=== PATIENT | male | born 1955 | race Caucasian/White ===

== ENCOUNTER 2017-10-25 12:00 | Inpatient (IN) | payer MEDICAID ==
[~2017-10-25] VITALS: Ht 175.3 cm; Wt 92.1 kg
--- NOTE | 2017-10-25 12:03 | NUR ---
Patient to bed 10. RN evaluating patient at bedside.
[2017-10-25 12:08] VITALS: BP 126/95
[2017-10-25] MEDS ORDERED: LAM25 PO (12:14)
[2017-10-25] MEDS ORDERED: CLON1TAB PO (12:14)
[2017-10-25] MEDS ORDERED: ASPI81CT89 PO (12:14)
[2017-10-25] MEDS ORDERED: AMLO2.5T PO (12:14)
[2017-10-25] MEDS ORDERED: CARV12.5 PO (12:14)
[2017-10-25] MEDS ORDERED: CEL250 PO (12:14)
[2017-10-25] MEDS ORDERED: PRED20TA5 PO (12:14)
[2017-10-25] MEDS ORDERED: ATI.5 PO (12:14)
[2017-10-25] MEDS ORDERED: HYDR200T5 PO (12:14)
--- NOTE | 2017-10-25 12:27 | NUR ---
XR AT BEDSIDE. 20G IV PLACED TO RFA. CT NOTIFIED STS FOR HEAD CT.
--- NOTE | 2017-10-25 12:30 | NUR ---
Patient being evaluated by physician at bedside.
--- NOTE | 2017-10-25 12:35 | NUR ---
61/M BIB FOR ALOC AND WEAKNESS STARTED TODAY PER . HAS RECENTLY D/C FOR ENCEPHALOPATHY FROM [place] PRES. HX HTN, SEIZURE, KIDNEY TRANSPLANT R/T MED HX. PT STIMULATED TO VERBAL AND TACTILE STIMULI. PT AAOX2. GENERALIZED WEAKNESS NOTED. HAS BOUTS OF CONFUSION, BUT ABLE TO FOLLOW SIMPLE COMMANDS. NOTABLE AREAS OF VARIOUS BRUISING NOTED. PATCH TO RIGHT UPPER CHEST WELL. DR. YOUNG MADE AWARE.
[2017-10-25 12:44] LABS: HEMATOCRIT 27.7 % (36-52); HEMOGLOBIN 8.9 g/dL (12.0-18.0); MEAN CORPUSCULAR HEMOGLOBIN 30 pg (27-31); MEAN CORPUSCULAR HGB CONC 32 g/dL (33-37); MEAN CORPUSCULAR VOLUME 93 fL (80-94); PLATELET COUNT (AUTO) 145 K/uL (140-450); RED BLOOD CELL COUNT(AUTO) 2.97 MIL/uL (4.20-6.10); RED CELL DISTRIBUTION WIDTH 15.3 % (11.6-13.7); WHITE BLOOD COUNT (AUTO) 7.2 K/uL (4.8-10.8)
[2017-10-25 13:10] LABS: LYMPHOCYTES % (MANUAL) 6 % (20-46); MONOCYTES % (MANUAL) 3 % (5-12)
[2017-10-25 13:26] LABS: ALBUMIN 2.3 g/dL (3.4-5.0); ANION GAP 10.1 (8-16); CARBON DIOXIDE 35.6 mmol/L (21-32); CREATININE 1.5 mg/dL (0.7-1.3); POTASSIUM 3.7 mmol/L (3.5-5.1); TOTAL BILIRUBIN 0.5 mg/dL (0.0-1.0)
--- NOTE | 2017-10-25 13:30 | NUR ---
# 14 FR IN AND OUT catheter utilizing sterile technique. Immediate return of 100 ml CLR YELLOW urine noted. Bedside drainage bag placed below level of bladder. Urine sample collected and sent to lab. Pt tolerated procedure WELL.
--- NOTE | 2017-10-25 14:00 | NUR ---
PT TRANSPORTED TO CT VIA RNEY.
[2017-10-25 14:28] LABS: APPEARANCE,URINE CLEAR (CLEAR); BILIRUBIN,URINE NEGATIVE (NEGATIVE); BLOOD, URINE NEGATIVE (NEGATIVE); COLOR,URINE YELLOW (YELLOW); LEUKOCYTE ESTERASE ,URINE NEGATIVE (NEGATIVE); NITRITE, URINE NEGATIVE (NEGATIVE); PH,URINE 5.5 (5.0-9.0); UGLUCOSE NEGATIVE (NEGATIVE)
[2017-10-25 14:31] LABS: BARBITURATE, URINE NEG. ng/ml (NEG <=200); BENZODIAZEPINE, URINE NEG. ng/mL (NEG <=200); CANNABINOID, URINE POS. ng/mL (NEG <=50); COCAINE, URINE NEG. ng/mL (NEG <=300); OPIATE, URINE NEG. ng/mL (NEG <=2000); PHENCYCLIDINE SCREEN,URINE NEG. ng/mL (NEG <=25)
[2017-10-25] MEDS ORDERED: ACETAMINOPHEN 325 MG TAB PO PRN (15:25)
--- NOTE | 2017-10-25 15:30 | NUR ---
ADMITTING MD AT BEDSIDE.
--- NOTE | 2017-10-25 16:00 | NUR ---
DPatient will be admitted to care of DR. BERRIOS. Admited to [facility]. Will go to room 120-B. Belongings list completed. BEDSIDE REPORT TO DICK SANTIAGO.
[2017-10-25 16:10] VITALS: BP 118/79
--- NOTE | 2017-10-25 16:10 | NUR ---
PATIENT ADMITTED TO THE UNIT FROM ER. PATIENT IS DROWSY AND CONFUSED. PATIENT AOX2. NO S/S OF DISTRESS NOTED. PATIENT ON 2L O2. NO SOB AT THIS TIME. MULTIPLE BRUISES AND SKIN TEARS NOTED TO BUE AND BLE. IV LINES NOTED TO RIGHT FOREARM AND LEFT AC, SALINE LOCKED. PATIENT PLACED ON TELE MONITORING. BED LOWERED WITH CALL LIGHT WITHIN REACH. WILL CONTINUE TO MONITOR
[2017-10-25] MEDS ORDERED: NACL 0.9% 1,000 ML IV ONE (16:30)
[2017-10-25] MEDS: predniSONE 20 MG TAB PO SCH (17:40)
[2017-10-25] MEDS: clonazePAM 0.5 MG TAB PO SCH (17:43)
[2017-10-25] MEDS: LEVOFLOXACIN 750 MG/D5W PREMIX 150 ML IV SCH (18:25)
[2017-10-25 18:27] LABS: CHOL/HDL RATIO 3.7 (1-4.5); FREE T4 (FREE THYROXINE) 1.12 ng/dL (0.76-1.46); PHOSPHORUS 2.9 mg/dL (2.5-4.9); THYROID STIMULATING HORMONE 0.85 uIU/mL (0.34-3.74)
[2017-10-25 18:38] LABS: PROTHROMBIN TIME 10.4 secs (10.8-13.4)
--- NOTE | 2017-10-25 19:27 | NUR ---
PATIENT REPORT GIVEN AT BEDSIDE. PATIENT ENDORSED IN STABLE CONDITION
--- NOTE | 2017-10-25 19:28 | NUR ---
RECEIVED BEDSIDE REPORT FROM DAY SHIFT NURSE PAMELA RN, PT STABLE, NO DISTRESS NOTED, PT ON O2 2LPM VIA NC, NO SOB, IV TO LAC 18 G SL AND RFA20 G RUNNING BOLUS NS AT THIS MOMENT, INITIAL ASSESSMENT DONE, ALL SAFETY PRECAUTION MET, WILL CONTINUE TO MONITOR.
[2017-10-25 20:00] VITALS: BP 109/77
[2017-10-25] MEDS: DEXT 5% / NACL 0.45% 1,000 ML IV SCH (20:00)
[2017-10-25] MEDS ORDERED: CLINDAMYCIN 600 MG/4 ML VIAL ONE (21:04)
[2017-10-25] MEDS: CLINDAMYCIN 600 MG in DEXTROSE 5% 50 ML IV SCH (21:18)
[2017-10-25] MEDS: DOCUSATE SODIUM 100 MG GELCAP PO SCH (21:19)
[2017-10-25] MEDS: LORazepam 0.5 MG TAB PO SCH (21:19)
[2017-10-25] MEDS: lamoTRIgine 25 MG TAB PO SCH (21:19)
[2017-10-25] MEDS: CARVEDILOL 12.5 MG TAB PO SCH (21:19)
--- NOTE | 2017-10-25 21:19 | NUR ---
DUE MEDICATION GIVEN, PT TOLERATED WELL, NO DISTRESS NOTED, CALL LIGHT WITHIN REACH, WILL CONTINUE TO MONITOR.
[2017-10-26] VITALS: BP 99/68
[2017-10-26] MEDS: HYDROcodone/APAP 7.5/325 MG 1 TAB PO PRN ×3 (01:18→20:31)
--- NOTE | 2017-10-26 01:18 | NUR ---
PT C/O OF PAIN 03/21, DID NOT STATED WHERE THE PAIN IS, JUST STATED THERE IS PAIN, PAIN MEDICATION GIVEN, PT TOLERATED WELL, NO DISTRESS NOTED, CALL LIGHT WITHIN REACH.
[2017-10-26 04:00] VITALS: BP 112/79
[2017-10-26] MEDS ORDERED: CLINDAMYCIN 600 MG/4 ML VIAL ONE (05:09)
--- NOTE | 2017-10-26 05:10 | NUR ---
CHECKED ON PT, PT SLEEPING, NO DISTRESS NOTED, CALL LIGHT WITHIN REACH, WILL CONTINUE TO MONITOR.
[2017-10-26] MEDS: CLINDAMYCIN 600 MG in DEXTROSE 5% 50 ML IV SCH ×3 (05:16→21:52)
--- NOTE | 2017-10-26 07:19 | NUR ---
RECEIVED REPORT AT BEDSIDE FROM NIGHTSHIFT NURSE. PATIENT IS ASLEEP BUT AROUSABLE. PATIENT IS ORIENTED TO HIS NAME. REORIENTED PATIENT THAT HE IS AT [facility] AND TODAY'S DATE. PATIENT SHOWS NO SIGNS OF RESPIRATORY DISTRESS. PATIENT DOES NOT COMPLAIN OF ANY PAIN AT THIS TIME. PATIENT IS IN STABLE CONDITION. BED LOWERED AND ALARMED AND FALL PRECAUTION SIGNS ARE IN PLACE. WILL CONTINUE TO MONITOR PATIENT.
--- NOTE | 2017-10-26 07:19 | NUR ---
GAVE BEDSIDE REPORT TO DAY SHIFT NURSE PAMELA RN, ENDORSED PLAN OF CARE, PT STABLE, NO DISTRESS NOTED
[2017-10-26 07:35] LABS: HEMATOCRIT 22.6 % (36-52); HEMOGLOBIN 7.6 g/dL (12.0-18.0); MEAN CORPUSCULAR HEMOGLOBIN 32 pg (27-31); MEAN CORPUSCULAR HGB CONC 34 g/dL (33-37); MEAN CORPUSCULAR VOLUME 95 fL (80-94); PLATELET COUNT (AUTO) 111 K/uL (140-450); RED BLOOD CELL COUNT(AUTO) 2.39 MIL/uL (4.20-6.10); RED CELL DISTRIBUTION WIDTH 14.9 % (11.6-13.7)
[2017-10-26] MEDS: DEXT 5% / NACL 0.45% 1,000 ML IV SCH ×2 (07:43→21:59)
[2017-10-26 07:45] VITALS: BP 104/67
[2017-10-26 07:49] LABS: ANION GAP 9.1 (8-16); CARBON DIOXIDE 34.7 mmol/L (21-32); CREATININE 1.3 mg/dL (0.7-1.3); POTASSIUM 3.8 mmol/L (3.5-5.1)
[2017-10-26 08:11] LABS: MAGNESIUM 1.8 mg/dL (1.8-2.4); PHOSPHORUS 3.6 mg/dL (2.5-4.9)
[2017-10-26 08:49] LABS: LYMPHOCYTES % (MANUAL) 4 % (20-46); MONOCYTES % (MANUAL) 4 % (5-12)
[2017-10-26] MEDS: HYDROXYCHLOROQUINE 200 MG TAB PO SCH (09:00)
[2017-10-26] MEDS: amLODIPine 5 MG TAB PO SCH (09:00)
[2017-10-26] MEDS: clonazePAM 0.5 MG TAB PO SCH ×3 (09:00→17:55)
[2017-10-26] MEDS: ASPIRIN 81 MG TAB.CHEW PO SCH (09:00)
[2017-10-26] MEDS: DOCUSATE SODIUM 100 MG GELCAP PO SCH ×2 (09:00→20:30)
[2017-10-26] MEDS: LACTOBACILLUS RHAMNOSUS GG 1 EACH CAP PO SCH (09:00)
[2017-10-26] MEDS: MYCOPHENOLATE 250 MG CAP PO SCH (09:00)
[2017-10-26] MEDS: predniSONE 20 MG TAB PO SCH ×3 (09:00→16:18)
[2017-10-26] MEDS: CARVEDILOL 12.5 MG TAB PO SCH ×2 (09:00→20:32)
--- NOTE | 2017-10-26 09:05 | NUR ---
PRESENTED ALL MEDICATIONS TO PATIENT AND EXPLAINED EACH ONE TO PATIENT AND THEIR MECHANISM OF ACTIONS. PATIENT REFUSED TO TAKE ANY. PATIENT SEEMS IRRITABLE AND SAYS, "I WANT TO SLEEP". ASKED PATIENT THREE TIMES AND PATIENT REFUSED ALL MEDICATIONS.
--- NOTE | 2017-10-26 09:17 | NUR ---
PATIENT HAS BEEN SCREENED AND CATEGORIZED MODERATE NUTRITION RISK. PT WILL BE SEEN WITHIN 3-5 DAYS OF ADMISSION. 10/27/17-10/29/[address]
--- NOTE | 2017-10-26 11:04 | NUR ---
TRIED TO CONTACT MED[facility] RECORDS OF [facility] REGARDING THE RELEASE OF MEDICAL INFORMATION FOR PATIENT. MEDICAL RECORDS IS CLOSED TODAY FOR THIS HOSPITAL.
--- NOTE | 2017-10-26 11:51 | NUR ---
PATIENT WAS TAKEN BY CT FOR CT SCAN CHEST. PATIENT IS IN STABLE CONDITION.
[2017-10-26 12:00] VITALS: BP 121/79
--- NOTE | 2017-10-26 15:19 | NUR ---
CM NOTE INITIAL REVIEW FAXED TO [facility] (FAX# [phone], C: [phone]) AND [facility] (FAX# [phone], C: [phone] OPT 1, 1, 2, 2).
[2017-10-26 16:00] VITALS: BP 107/70
--- NOTE | 2017-10-26 17:19 | NUR ---
PATIENT SEEN BY SPEECH THERAPIST. SWALLOW EVAL DONE. SPEECH THERAPIST RECOMMENDS MECHANICAL SOFT DIET WITH THIN LIQUIDS.
[2017-10-26] MEDS: LEVOFLOXACIN 750 MG/D5W PREMIX 150 ML IV SCH (17:54)
--- NOTE | 2017-10-26 18:06 | NUR ---
* ST NOTE * Pt seen at bedside. Pt alert and cooperative, reporting no c/o pain at this time. Bedside dysphagia and oral mechanism exams completed. See evaluation report for further details. Pt tolerating 5/5 alternating PO trials of regular solid lisa crackers as well as 6/6 alternating PO trials of successive sips of thin liquid apple juice via a straw, all w/o s/s of aspiration or choking. Pt education completed regarding safe swallow compensatory strategies pt could utilize to aid w/swallow function, w/pt verbalizing understanding and agreement w/clinician's recommendations. Because pt presents with hx of CVA and seizures, it is recommended pt's PO diet consistency be modified to M/S textures w/thin liquids for all meals, abiding by aspiration precautions. No further ST follow up recommended at this time. Pt and caregiver/nsg education completed regarding results of evaluation; benefits of abiding by aspiration precautions & recommended PO diet consistency; and prognosis for improvement; with pt and caregiver/nsg verbalizing understanding and agreement w/clinician's recommendations. Recommend: - PO diet consistency of MECHANICAL SOFT TEXTURES W/THIN LIQUIDS for all meals - Maintain STRICT ASPIRATION PRECAUTIONS 2/2 to pt's hx of CVA and seizures - Pt is safe for PO medication administration crushed in m/s or puree textures - Sit pt up at 70-90 degree angle during PO intake, feed pt slowly utilizing small bites/sips & alternating btwn solids & liquids No further ST follow up recommended at this time. G8996 CL G8997 CI G8998 CI NOMS Level 2 Time In/Out 17:30 - 18:00
--- NOTE | 2017-10-26 19:15 | NUR ---
GAVE REPORT TO NIGHTSHIFT NURSE AT BEDSIDE. PATIENT IS IN STABLE CONDITION AT THIS TIME.
--- NOTE | 2017-10-26 19:16 | NUR ---
RECEIVED REPORT AT BEDSIDE FROM DAY SHIFT NURSE. PT A/OX1, ON 2L O2 VIA NASAL CANNULA. PT IS ON BEDREST. PT HAS IV TO LEFT AC 18G, SL, AND RIGHT FA 20G INFUSING D5 0.45%NS@50ML/HR. PT HAS MULTIPLE SKIN TEARS TO B/L UPPER EXTREMITIES, AND B/L LOWER EXTREMITIES. SAFETY PRECAUTIONS IN PLACE. UPDATED BOARD. VITAL SIGNS WITHIN NORMAL LIMITS. PT IN STABLE CONDITION, NO SIGNS OF DISTRESS NOTED. BED IN LOW POSITION, CALL LIGHT WITHIN REACH. WILL CONTINUE TO MONITOR.
[2017-10-26 20:00] VITALS: BP 99/70
[2017-10-26] MEDS: lamoTRIgine 25 MG TAB PO SCH (20:30)
--- NOTE | 2017-10-26 20:30 | NUR ---
PT C/O MODERATE GENERALIZED PAIN, ADMINISTERED NORCO AND OTHER SCHEDULED MEDICATIONS, PT TOLERATED WELL. HELD ATIVAN FOR NOW BECAUSE NORCO WAS GIVEN. WILL CHECK V/S AGAIN IN 1HR AND ADMINISTER ATIVAN AT THAT TIME. PT IN STABLE CONDITION, NO SIGNS OF DISTRESS NOTED. BED IN LOW POSITION, CALL LIGHT WITHIN REACH. WILL CONTINUE TO MONITOR.
[2017-10-26] MEDS: LORazepam 0.5 MG TAB PO SCH (21:52)
--- NOTE | 2017-10-26 21:55 | NUR ---
VITAL SIGNS STABLE, BP NOW 105/72, ADMINISTERED SCHEDULED ATIVAN, PT TOLERATED WELL. PT IN STABLE CONDITION, NO SIGNS OF DISTRESS NOTED. BED IN LOW POSITION, CALL LIGHT WITHIN REACH. WILL CONTINUE TO MONITOR.
--- NOTE | 2017-10-27 | NUR ---
VITAL SIGNS WITHIN NORMAL LIMITS. PT IN STABLE CONDITION, NO SIGNS OF DISTRESS NOTED. BED IN LOW POSITION, CALL LIGHT WITHIN REACH. WILL CONTINUE TO MONITOR.
[2017-10-27 00:30] VITALS: BP 108/72
[2017-10-27 04:00] VITALS: BP 122/80
--- NOTE | 2017-10-27 04:00 | NUR ---
VITAL SIGNS WITHIN NORMAL LIMITS. PT IN STABLE CONDITION, NO SIGNS OF DISTRESS NOTED. BED IN LOW POSITION, CALL LIGHT WITHIN REACH. WILL CONTINUE TO MONITOR.
[2017-10-27] MEDS: CLINDAMYCIN 600 MG in DEXTROSE 5% 50 ML IV SCH ×3 (05:25→21:21)
--- NOTE | 2017-10-27 07:14 | NUR ---
ENDORSED PATIENT TO CNC LATHE PROGRAMMER RN FOR CONTINUITY OF CARE. PATIENT IS IN STABLE CONDITION.
--- NOTE | 2017-10-27 07:20 | NUR ---
RECEIVED PATIENT REPORT AT BEDSIDE FROM NIGHTSHIFT NURSE. PATIENT IS AROUSABLE TO NAME. PATIENT IS ALERT AND ORIENTED TO NAME AND SOMETIMES PLACE. REORIENTED PATIENT TO LOCATION AND DATE. PATIENT SHOWS NO SIGNS OF RESPIRATORY DISTRESS. INSTRUCTED PATIENT TO CALL WITH CALL LIGHT WHEN HE NEEDS HELP. BED LOWERED AND FALL SIGNS POSTED. WILL CONTINUE TO MONITOR PATIENT.
[2017-10-27 07:34] LABS: HEMOGLOBIN 7.5 g/dL (12.0-18.0); MEAN CORPUSCULAR HEMOGLOBIN 31 pg (27-31); MEAN CORPUSCULAR HGB CONC 34 g/dL (33-37); MEAN CORPUSCULAR VOLUME 91 fL (80-94); PLATELET COUNT (AUTO) 109 K/uL (140-450); RED BLOOD CELL COUNT(AUTO) 2.42 MIL/uL (4.20-6.10); RED CELL DISTRIBUTION WIDTH 15.3 % (11.6-13.7); WHITE BLOOD COUNT (AUTO) 5.6 K/uL (4.8-10.8)
[2017-10-27] MEDS: DEXT 5% / NACL 0.45% 1,000 ML IV SCH (07:41)
[2017-10-27 07:59] VITALS: BP 124/78
[2017-10-27 08:57] LABS: LYMPHOCYTES % (MANUAL) 3 % (20-46); MONOCYTES % (MANUAL) 3 % (5-12)
[2017-10-27] MEDS: clonazePAM 0.5 MG TAB PO SCH ×3 (09:00→18:12)
[2017-10-27] MEDS: HYDROXYCHLOROQUINE 200 MG TAB PO SCH (09:00)
[2017-10-27] MEDS: CARVEDILOL 12.5 MG TAB PO SCH ×2 (09:00→22:48)
[2017-10-27] MEDS: DOCUSATE SODIUM 100 MG GELCAP PO SCH ×3 (09:00→22:47)
[2017-10-27] MEDS: amLODIPine 5 MG TAB PO SCH (09:00)
[2017-10-27] MEDS: MYCOPHENOLATE 250 MG CAP PO SCH (09:00)
[2017-10-27 09:05] LABS: ANION GAP 9.2 (8-16); CARBON DIOXIDE 32.4 mmol/L (21-32); CREATININE 1.3 mg/dL (0.7-1.3); POTASSIUM 3.6 mmol/L (3.5-5.1)
--- NOTE | 2017-10-27 09:42 | NUR ---
SPOKE WITH RADHA FROM [facility]. THE SNF WOULD BE THROUGH HIM. PER HIS REQUEST FAXED FACE SHEET, ORDER, PT NOTES AND MED SHEETS TO HIM AT [phone]. PHONE [phone]. Addendum: 10/27/17 at 1009 by Fariha Romo [facility] WILL LOOK FOR SNF.
[2017-10-27] MEDS: LACTOBACILLUS RHAMNOSUS GG 1 EACH CAP PO SCH (10:40)
[2017-10-27] MEDS: ASPIRIN 81 MG TAB.CHEW PO SCH (10:40)
[2017-10-27] MEDS: predniSONE 20 MG TAB PO SCH ×3 (10:40→18:10)
--- NOTE | 2017-10-27 10:45 | NUR ---
DR. MORALES NOTES SAYS TO HOLD OFF ON MEDICATION CELLCEPT AND PLAQUENIL UNTIL REASON WHY THE PATIENT IS TAKING THESE MEDICATIONS ARE IDENTIFIED.
[2017-10-27 10:47] VITALS: BP 89/69
[2017-10-27] MEDS: KETOROLAC 15 MG/ML VIAL IVP SCH ×2 (12:26→18:11)
--- NOTE | 2017-10-27 13:58 | NUR ---
SPOKE WITH RADHA FROM [facility]. HE SAID THEY FAXED INQUIRY TO THEIR CONTRACTED SNF'S FAXED [facility]CURRENT [facility]VIEW [facility] [phone] PHONE [phone] Addendum: 10/27/17 at 1411 by Fariha Romo CALLED [facility] AND SPOKE WITH SHAMIR. REVIEWS JUST GOES TO [facility], NOT TO [facility].
--- NOTE | 2017-10-27 15:22 | NUR ---
PATIENT IS ASLEEP. NO SIGNS OF RESPIRATORY DISTRESS NOTED. PATIENT IS IN STABLE CONDITION. WILL CONTINUE TO MONITOR PATIENT.
[2017-10-27 16:00] VITALS: BP 94/66
[2017-10-27] MEDS: FERROUS GLUCONATE 324 MG TAB PO SCH (18:10)
[2017-10-27] MEDS: LEVOFLOXACIN 750 MG/D5W PREMIX 150 ML IV SCH (18:11)
--- NOTE | 2017-10-27 19:15 | NUR ---
GAVE BEDSIDE REPORT AT TO NIGHTSHIFT NURSE . PATIENT SHOWS NO SIGNS OF RESPIRATORY DISTRESS. PATIENT IS IN STABLE CONDITION.
--- NOTE | 2017-10-27 19:16 | NUR ---
RECD. RESTING IN BED, AWAKE, A/OX4. RESPIRATION EVEN AND UNLABORED. ON 02 AT 2 LITERS VIA N/C, 02 SAT - 93%. BRUISES NOTED ON BILATERAL ARMS. IV OF D51/2 NS AT 50 ML/HR INFUSING, RIGHT FA G 20, IV SALINE LOCK AT THE RIGHT AC G20, PATENT AND INTACT. ON BILATERAL LEG SEQUENTIALS. SAFETY MEASURES ENFORCED. PLAN OF CARE DISCUSSED. VERBALIZED UNDERSTANDING. DENIES PAIN 0/10. WILL BE TRANSFERRED TO RM 116.
--- NOTE | 2017-10-27 19:35 | NUR ---
SHOUTING IN HISS ROOM, WHEN ASKED WHY STATED THAT HE IS CLAUSTROPHOBIC, WANTS TO SEE PEOPLE PASSING BY, CAN'T SLEEP IN RM 116. ASSURED WILL INFORM CHARGE NURSE.
[2017-10-27 20:00] VITALS: BP 113/80
--- NOTE | 2017-10-27 20:00 | NUR ---
Patient's Plan of Care was discussed and reviewed with GRADER MEAT: FERDINAND IRVING
--- NOTE | 2017-10-27 20:35 | NUR ---
TRANSFERRED BACK TO RM 107B. VERBALIZED CONTENTMENT.
--- NOTE | 2017-10-27 22:40 | NUR ---
STATED WANTS TO TAKE METHADONE AGAIN, CLAIMED HE STOPPED TAKING IT 2-3 WEEKS BEFORE ADMISSION. WANTS TO TALK TO MD ABOUT IT. INFORMED DR. RENEE, WILL SPEAK WITH PATIENT REGARDING THIS MEDICATION.
[2017-10-27] MEDS: LORazepam 0.5 MG TAB PO SCH (22:47)
[2017-10-27] MEDS: lamoTRIgine 25 MG TAB PO SCH (22:48)
--- NOTE | 2017-10-27 23:10 | NUR ---
DR. RENEE SPOKE WITH PATIENT.
[2017-10-28] VITALS (7 sets, daily range): BP systolic 102–125; BP diastolic 70–78
[2017-10-28] MEDS: KETOROLAC 15 MG/ML VIAL IVP SCH ×5 (00:34→23:40)
--- NOTE | 2017-10-28 01:00 | NUR ---
SLEEPING COMFORTABLY IN BED.
[2017-10-28] MEDS: DEXT 5% / NACL 0.45% 1,000 ML IV SCH ×2 (03:41→23:41)
[2017-10-28] MEDS: CLINDAMYCIN 600 MG in DEXTROSE 5% 50 ML IV SCH ×3 (05:24→20:15)
--- NOTE | 2017-10-28 06:00 | NUR ---
ALREADY AWAKE IN BED, BUT STILL COVERED HIS FACE WITH BLANKET. NO DISTRESS NOTED.
[2017-10-28 06:28] LABS: FOLIC ACID 13.9 ng/mL (>3.0)
[2017-10-28 07:05] LABS: BASOPHILS % (AUTO) 0.1 % (0.0-2.0); EOSINOPHILS # (AUTO) 0.1 K/uL (0-0.4); HEMATOCRIT 22.5 % (36-52); HEMOGLOBIN 7.4 g/dL (12.0-18.0); LYMPHOCYTES # (AUTO) 0.4 K/uL (2.0-11.5); LYMPHOCYTES % (AUTO) 7.7 % (20.5-51.1); MEAN CORPUSCULAR HEMOGLOBIN 31 pg (27-31); MEAN CORPUSCULAR HGB CONC 33 g/dL (33-37); MEAN CORPUSCULAR VOLUME 94 fL (80-94); MONOCYTES # (AUTO) 0.3 K/uL (0.8-1.0); NEUTROPHILS # (AUTO) 4.3 K/uL (1.8-7.7); NEUTROPHILS % (AUTO) 86.2 % (42.2-75.2); PLATELET COUNT (AUTO) 118 K/uL (140-450); RED BLOOD CELL COUNT(AUTO) 2.39 MIL/uL (4.20-6.10); RED CELL DISTRIBUTION WIDTH 14.8 % (11.6-13.7); WHITE BLOOD COUNT (AUTO) 5.1 K/uL (4.8-10.8)
--- NOTE | 2017-10-28 07:20 | NUR ---
CONDITION REMAIN STABLE. ENDORSED TO DICK SHAW FOR CONTINUITY OF CARE.
--- NOTE | 2017-10-28 07:21 | NUR ---
RECEIVED REPORT FROM MECHANICAL SERVICE SPECIALIST NURSE. PATIENT LYING IN BED SLEEPING, AROUSABLE BY VOICE. NO DISTRESS NOTED. DENIES ANY PAIN AT THIS TIME. AAOX2, CALM, COOPERATIVE, SKIN COLOR APPROPRIATE TO ETHNICITY, WARM TO TOUCH. 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 NO S/S OF INFECTION NOTED ON SKIN LESIONS. IV SITE INTACT, PATENT, AND INFUSING IVF PER ORDERS. LUNGS CTA ON ALL LOBES. ABDOMEN SOFT, NON-DISTENDED. REVIEWED PLAN OF CARE WITH PATIENT. PATIENT VERBALIZED UNDERSTANDING. SAFETY MEASURES IN PLACE, CALL LIGHT WITHIN REACH, FALL PREVENTIONS IN PLACE. WILL CONTINUE TO MONITOR.
[2017-10-28 07:45] LABS: ANION GAP 10.5 (8-16); CREATININE 1.3 mg/dL (0.7-1.3); POTASSIUM 3.5 mmol/L (3.5-5.1)
[2017-10-28] MEDS: DOCUSATE SODIUM 100 MG GELCAP PO SCH ×2 (08:53→21:21)
[2017-10-28] MEDS: predniSONE 20 MG TAB PO SCH ×3 (08:53→17:01)
[2017-10-28] MEDS: clonazePAM 0.5 MG TAB PO SCH ×3 (08:54→17:03)
[2017-10-28] MEDS: CARVEDILOL 12.5 MG TAB PO SCH ×2 (08:55→21:22)
[2017-10-28] MEDS: FERROUS GLUCONATE 324 MG TAB PO SCH ×2 (08:55→17:07)
[2017-10-28] MEDS: HYDROXYCHLOROQUINE 200 MG TAB PO SCH (08:55)
[2017-10-28] MEDS: ASPIRIN 81 MG TAB.CHEW PO SCH (08:55)
[2017-10-28] MEDS: amLODIPine 5 MG TAB PO SCH (08:55)
[2017-10-28] MEDS: LACTOBACILLUS RHAMNOSUS GG 1 EACH CAP PO SCH (08:55)
--- NOTE | 2017-10-28 09:00 | NUR ---
PATIENT LYING IN BED SLEEPING, AROUSABLE BY VOICE. NO DISTRESS NOTED. DENIES ANY PAIN AT THIS TIME. SCHEDULED MEDICATIONS DUE GIVEN. PATIENT TOLERATED WELL. SAFETY MEASURES IN PLACE, CALL LIGHT WITHIN REACH. WILL CONTINUE TO MONITOR.
--- NOTE | 2017-10-28 14:36 | NUR ---
CALLED [facility] AND SPOKE WITH DORENE. SHE SAID [facility] DOES NOT NEED REVIEW. FAXED CONCURRENT REVIEW TO [facility] [phone] PHONE RADHA [phone]. I CALLED [facility] BECAUSE HE SAID HE WOULD BE GETTTING A SNF FOR THIS PATIENT. NO CALL BACK YET.
--- NOTE | 2017-10-28 16:05 | NUR ---
PHYSICAL THERAPY CO-SIGN The Physical Therapy Progress Notes documented by Altitude Chamber Technician have been reviewed. Reviewed/Co-Signed by: Nena Kingston PT Documentation Done by: GALE CARDOZA PTA PT CONTINUES TO PRESENT WITH WEAKNESS TO JAYME LE WITH SIT TO STAND ACTIVITY BUT IMPROVING SEATED TRUNKAL CONTROL. Addendum: 10/29/17 at 0847 by Nena Kingston PT Amended: Links added.
--- NOTE | 2017-10-28 17:13 | NUR ---
DR. VELASQUEZ AT BEDSIDE REVIEWING PLAN OF CARE WITH PATIENT. ASSISTED PATIENT WITH URINAL. PATIENT LYING IN BED. NO DISTRESS NOTED. RESPIRATIONS EVEN, UNLABORED, ON ROOM AIR WITH O2 SAT AT 96%. SCHEDULED MEDICATIONS DUE GIVEN. SAFETY MEASURES IN PLACE, CALL LIGHT WITHIN REACH, FALL PREVENTIONS IN PLACE. WILL CONTINUE TO MONITOR.
--- NOTE | 2017-10-28 17:59 | NUR ---
PATIENT LYING DOWN IN BED. ASKED FOR ROM EXERCISES FOR B/L LE. PERFORMED ROM EXERCISES ON B/L LE PER PATIENT REQUESTS. NO DISTRESS NOTED. IV SITE INTACT, PATENT AND INFUSING IVF PER ORDERS. CONDITION UNCHANGED. SAFETY MEASURES IN PLACE, CALL LIGHT WITHIN REACH. WILL CONTINUE TO MONITOR.
[2017-10-28] MEDS: LEVOFLOXACIN 750 MG/D5W PREMIX 150 ML IV SCH (18:19)
--- NOTE | 2017-10-28 18:26 | NUR ---
PATIENT LYING DOWN SLEEPING, AROUSABLE BY VOICE. NO DISTRESS NOTED. DENIES ANY PAIN. RESPIRATIONS EVEN, UNLABORED, ON ROOM AIR. SCHEDULED MEDICATIONS DUE GIVEN. SAFETY MEASURES IN PLACE, CALL LIGHT WITHIN REACH. WILL CONTINUE TO MONITOR.
--- NOTE | 2017-10-28 19:10 | NUR ---
GAVE REPORT TO HAIR ASSISTANT NURSE FOR CONTINUITY OF CARE. PATIENT IN STABLE CONDITION.
--- NOTE | 2017-10-28 19:11 | NUR ---
RECD. RESTING IN BED, AWAKE, A/OX4. RESPIRATION EVEN AND UNLABORED. IV OF D5 1/2 NS AT 50 ML/HR INFUSING, RIGHT FOREARM G20, SALINE LOCK AT THE LEFT AC G18, PATENT AND INTACT. STILL WITH BRUISES AND SKIN TEARS IN THE BODY. ON BILATERAL LEG SEQUENTIALS. SAFETY MEASURES ENFORCED, CALL LIGHT GIVEN AND INSTRUCTED TO CALL NURSE WHEN NEEDING HELP. WITH DEPRESSION, VERBALIZED FRUSTRATION BECAUSE HE IS UNABLE TO AMBULATE. WANTS TO SPEAK WITH MD. WILL ENDORSE TO AM NURSE FOR FOLLOW UP. PLAN OF CARE DISCUSSED. VERBALIZED UNDERSTANDING. DENIES PAIN 0/10.
--- NOTE | 2017-10-28 19:11 | NUR ---
Patient's Plan of Care was discussed and reviewed with TERADATA SOLUTION ARCHITECT: FERDINAND IRVING
[2017-10-28] MEDS: MORPHINE SULFATE 2 MG/ML SYR IVP PRN (21:21)
[2017-10-28] MEDS: lamoTRIgine 25 MG TAB PO SCH (21:21)
[2017-10-28] MEDS: LORazepam 0.5 MG TAB PO SCH (21:22)
[2017-10-28] MEDS ORDERED: SODIUM PHOSPHATE 118 ML ENEM RC SCH (21:30)
--- NOTE | 2017-10-28 21:30 | NUR ---
UNABLE TO HAVE BM FOR THREE DAYS NOW, FLEET ENEMA GIVEN.
--- NOTE | 2017-10-28 22:00 | NUR ---
DR. MAURICIO CAME AND CHECKED PATIENT, WILL CHECK FOR NEW ORDERS.
--- NOTE | 2017-10-28 22:30 | NUR ---
ABLE TO HAVE SMALL AMOUNT OF FORMED BM. CLEANSED AND MADE COMFORTABLE IN BED.
--- NOTE | 2017-10-28 22:30 | NUR ---
DR.. MAURICIO ORDERED SPUTUM CULTURE. SPECIMEN BOTTLE GIVEN TO PATIENT AND INSTRUCTED TO SPIT OUT PHLEGM AND GIVE TO NURSE TO BE SENT TO THE LABORATORY. VERBALIZED UNDERSTANDING.
[2017-10-29] VITALS: BP 118/72
--- NOTE | 2017-10-29 02:00 | NUR ---
STILL AWAKE IN BED, REQUESTED TO SNACK.
[2017-10-29] MEDS: MORPHINE SULFATE 2 MG/ML SYR IVP PRN ×2 (03:38→23:18)
[2017-10-29 04:00] VITALS: BP 122/65
--- NOTE | 2017-10-29 05:00 | NUR ---
OCCASIONALLY WAKES UP TO FOLLOW UP HIS PAIN MEDICATION.
[2017-10-29] MEDS: KETOROLAC 15 MG/ML VIAL IVP SCH ×3 (05:06→17:33)
[2017-10-29] MEDS: CLINDAMYCIN 600 MG in DEXTROSE 5% 50 ML IV SCH ×3 (05:06→20:48)
--- NOTE | 2017-10-29 06:22 | NUR ---
CONDITION REMAIN STABLE. WILL ENDORSE TO AM NURSE FOR CONTINUITY OF CARE.
[2017-10-29 07:12] LABS: BASOPHILS % (AUTO) 0.3 % (0.0-2.0); EOSINOPHILS # (AUTO) 0.1 K/uL (0-0.4); HEMATOCRIT 26.6 % (36-52); HEMOGLOBIN 8.8 g/dL (12.0-18.0); LYMPHOCYTES # (AUTO) 0.5 K/uL (2.0-11.5); LYMPHOCYTES % (AUTO) 6.1 % (20.5-51.1); MEAN CORPUSCULAR HEMOGLOBIN 31 pg (27-31); MEAN CORPUSCULAR HGB CONC 33 g/dL (33-37); MEAN CORPUSCULAR VOLUME 92 fL (80-94); MONOCYTES # (AUTO) 0.4 K/uL (0.8-1.0); MONOCYTES % (AUTO) 5.1 % (1.7-9.3); NEUTROPHILS # (AUTO) 7.1 K/uL (1.8-7.7); NEUTROPHILS % (AUTO) 87.5 % (42.2-75.2); PLATELET COUNT (AUTO) 155 K/uL (140-450); RED BLOOD CELL COUNT(AUTO) 2.88 MIL/uL (4.20-6.10); RED CELL DISTRIBUTION WIDTH 14.9 % (11.6-13.7); WHITE BLOOD COUNT (AUTO) 8.1 K/uL (4.8-10.8)
--- NOTE | 2017-10-29 07:15 | NUR ---
ENDORSED TO DICK SHAW FOR CONTINUITY OF CARE.
--- NOTE | 2017-10-29 07:16 | NUR ---
RECEIVED REPORT FROM RIDES ATTENDANT NURSE. PATIENT LYING IN BED SLEEPING, AROUSABLE BY VOICE. NO DISTRESS NOTED. RESPIRATIONS EVEN, UNLABORED, ON ROOM AIR. DENIES ANY PAIN AT THIS TIME. AAOX2, CALM, COOPERATIVE, SKIN COLOR APPROPRIATE TO ETHNICITY, WARM TO TOUCH. HAS MULTIPLE SKIN BRUISES AND LESIONS THROUGHOUT B/L UPPER EXTREMITY AND CHEST AREA THAT ARE SACHIN. NO S/S OF INFECTION NOTED ON SKIN LESIONS. IV SITE INTACT, PATENT, AND INFUSING IVF PER ORDERS. LUNGS CTA ON ALL LOBES. ABDOMEN SOFT, NON-DISTENDED. REVIEWED PLAN OF CARE WITH PATIENT. PATIENT VERBALIZED UNDERSTANDING. SAFETY MEASURES IN PLACE, CALL LIGHT WITHIN REACH, FALL PREVENTIONS IN PLACE. WILL CONTINUE TO MONITOR.
[2017-10-29 07:43] LABS: ANION GAP 13.3 (8-16); CREATININE 1.4 mg/dL (0.7-1.3); POTASSIUM 3.3 mmol/L (3.5-5.1)
[2017-10-29 08:00] VITALS: BP 119/80
--- NOTE | 2017-10-29 08:30 | NUR ---
DR. TAYLOR AT BEDSIDE REVIEWING PLAN OF CARE WITH PATIENT. WILL CONTINUE TO MONITOR.
[2017-10-29] MEDS: LACTOBACILLUS RHAMNOSUS GG 1 EACH CAP PO SCH (08:57)
[2017-10-29] MEDS: FERROUS GLUCONATE 324 MG TAB PO SCH ×2 (09:00→17:33)
[2017-10-29] MEDS: HYDROXYCHLOROQUINE 200 MG TAB PO SCH (09:00)
[2017-10-29] MEDS: predniSONE 20 MG TAB PO SCH ×3 (09:00→17:33)
[2017-10-29] MEDS: DOCUSATE SODIUM 100 MG GELCAP PO SCH ×2 (09:00→20:49)
[2017-10-29] MEDS: amLODIPine 5 MG TAB PO SCH (09:00)
[2017-10-29] MEDS: ASPIRIN 81 MG TAB.CHEW PO SCH (09:00)
[2017-10-29] MEDS: CARVEDILOL 12.5 MG TAB PO SCH ×2 (09:00→20:50)
[2017-10-29] MEDS: clonazePAM 0.5 MG TAB PO SCH ×3 (09:01→17:35)
--- NOTE | 2017-10-29 09:13 | NUR ---
PATIENT LYING IN BED. NO DISTRESS NOTED. ASSISTED PATIENT IN REPOSITIONING. RESPIRATIONS EVEN, UNLABORED, ON ROOM AIR. SCHEDULED MEDICATIONS DUE GIVEN. SAFETY MEASURES IN PLACE, CALL LIGHT WITHIN REACH. WILL CONTINUE TO MONITOR.
[2017-10-29] MEDS ORDERED: POTASSIUM CHLORIDE 10 MEQ TABER PO SCH (10:00)
--- NOTE | 2017-10-29 10:23 | NUR ---
PATIENT LYING IN BED FEELING ANXIOUS AND AGITATED ABOUT BEING NPO. SAYS HE WANTS TO CANCEL POSSIBLE BRONCOSCOPY IF THEY ARE NOT ABLE TO COMPLETE IT BY 1400. WILL NOTIFY MD. ASSISTED PATIENT IN REPOSITIONING IN BED. SAFETY MEASURES IN PLACE, CALL LIGHT WITHIN REACH.
--- NOTE | 2017-10-29 10:52 | NUR ---
SPUTUM CULTURE COLLECTED BY COLIN/DICK SENT LAB AT 0730
[2017-10-29 12:00] VITALS: BP 112/92
--- NOTE | 2017-10-29 12:15 | NUR ---
PHYSICAL THERAPY CO-SIGN The Physical Therapy Progress Notes documented by Sales Representative Printing Supplies have been reviewed. Reviewed/Co-Signed by: Grisel Hampton PT Documentation Done by: Stew Luther PTA I concur with the documentation of this LEMON GROWER. Plan: continue as per plan of care if he remains in this hospital. Addendum: 10/30/17 at 1412 by Grisel Hampton PT Amended: Links added.
--- NOTE | 2017-10-29 12:46 | NUR ---
PATIENT LYING IN BED FEELING ANXIOUS. NO DISTRESS NOTED. DENIES ANY PAIN. SCHEDULED MEDICATIONS DUE GIVEN. ASSISTED PATIENT WITH URINAL AND REPOSITIONING IN BED. SAFETY MEASURES IN PLACE, CALL LIGHT WITHIN REACH. WILL CONTINUE TO MONITOR.
--- NOTE | 2017-10-29 13:30 | NUR ---
[facility] NOTE JOSE Hensley/ [facility] FOR [facility] (C: [phone]) RE. SNF PLACEMENT. Addendum: 10/29/17 at 1550 by Carl Ward RN 2ND CALL OUT TO MARK. [facility]ARC[facility].
--- NOTE | 2017-10-29 15:00 | NUR ---
PATIENT LYING IN BED. DIET CHANGED FROM NPO TO MECHANICAL SOFT. GAVE PATIENT PUDDING AND COFFEE. PATIENT FEELS BETTER AFTER EATING A SNACK. NO DISTRESS NOTED. DENIES ANY PAIN. ASSISTED PATIENT WITH URINAL. SAFETY MEASURES IN PLACE, CALL LIGHT WITHIN REACH. WILL CONTINUE TO MONITOR.
--- NOTE | 2017-10-29 15:17 | NUR ---
CM NOTE CONCURRENT REVIEW FAXED TO [facility] / FAX# [phone], ATTN: RADHA #[phone]
[2017-10-29 16:00] VITALS: BP 100/70
--- NOTE | 2017-10-29 16:30 | NUR ---
ASSISTED LIQUEFACTION PLANT OPERATOR IN REPOSITIONING PATIENT. PATIENT HAD NO BM TODAY. SAFETY MEASURES IN PLACE, CALL LIGHT WITHIN REACH. WILL CONTINUE TO MONITOR.
[2017-10-29] MEDS: LEVOFLOXACIN 750 MG/D5W PREMIX 150 ML IV SCH (17:34)
--- NOTE | 2017-10-29 17:48 | NUR ---
PATIENT SITTING IN BED TALKING WITH FAMILY MEMBER AT BEDSIDE. NO DISTRESS NOTED. DENIES ANY PAIN. GAVE PATIENT A JELLO PER REQUEST. SCHEDULED MEDICATIONS DUE GIVEN. WILL CONTINUE TO MONITOR.
--- NOTE | 2017-10-29 18:51 | NUR ---
PATIENT REQUESTING FOR BED HOLGUIN. PATIENT HAD A BIG BOWEL MOVEMENT. CLEANED PATIENT UP AND REPOSITIONED PATIENT. SAFETY MEASURES IN PLACE, CALL LIGHT WITHIN REACH. WILL CONTINUE TO MONITOR.
--- NOTE | 2017-10-29 19:31 | NUR ---
GAVE REPORT TO TECHNICIAN NURSE FOR CONTINUITY OF CARE. PATIENT IN STABLE CONDITION.
--- NOTE | 2017-10-29 19:32 | NUR ---
RECEIVED REPORT AT BEDSIDE FROM DAY SHIFT NURSE. PT A/OX1, ON ROOM AIR. PT IS ON BEDREST. PT HAS IV TO LEFT AC 18G, SL, AND RIGHT FA 20G INFUSING D5 0.45%NS@50ML/HR. PT HAS MULTIPLE SKIN TEARS AND SCABS TO B/L UPPER EXTREMITIES, AND B/L LOWER EXTREMITIES. SAFETY PRECAUTIONS IN PLACE. UPDATED BOARD. VITAL SIGNS WITHIN NORMAL LIMITS. PT IN STABLE CONDITION, NO SIGNS OF DISTRESS NOTED. BED IN LOW POSITION, CALL LIGHT WITHIN REACH. WILL CONTINUE TO MONITOR.
[2017-10-29] MEDS: DEXT 5% / NACL 0.45% 1,000 ML IV SCH (19:41)
[2017-10-29 20:00] VITALS: BP 133/90
[2017-10-29] MEDS: LORazepam 0.5 MG TAB PO SCH (20:49)
--- NOTE | 2017-10-29 20:50 | NUR ---
ADMINISTERED SCHEDULED MEDICATIONS, PT TOLERATED WELL. PT IN STABLE CONDITION, NO SIGNS OF DISTRESS NOTED. BED IN LOW POSITION, CALL LIGHT WITHIN REACH. WILL CONTINUE TO MONITOR.
[2017-10-29] MEDS: lamoTRIgine 25 MG TAB PO SCH (20:51)
--- NOTE | 2017-10-29 23:19 | NUR ---
PT C/O 10/ GENERALIZED PAIN, MEDICATED WITH 1MG OF MORPHINE PER ORDER. PT TOLERATED WELL.
[2017-10-30] VITALS: BP 156/86
[2017-10-30] MEDS: KETOROLAC 15 MG/ML VIAL IVP SCH ×5 (00:17→23:54)
--- NOTE | 2017-10-30 00:20 | NUR ---
ADMINISTERED SCHEDULED TORADOL. PT TOLERATED WELL. VITAL SIGNS WITHIN NORMAL LIMITS. PT IN STABLE CONDITION, NO SIGNS OF DISTRESS NOTED. BED IN LOW POSITION, CALL LIGHT WITHIN REACH. WILL CONTINUE TO MONITOR.
[2017-10-30] MEDS: HYDROcodone/APAP 10/325 MG 1 TAB TAB PO PRN (03:10)
--- NOTE | 2017-10-30 03:10 | NUR ---
SPOKE TO DR RENEE TO EXPLAIN THAT MORPHINE AND TORADOL WERE NOT VERY EFFECTIVE FOR PT AND PT STILL IN PAIN. DR RENEE SAID TO GIVE NORCO ORDERED. ADMINISTERED NORCO FOR MODERATE PAIN (GENERALIZED), PT TOLERATED WELL.
[2017-10-30 04:00] VITALS: BP 127/84
--- NOTE | 2017-10-30 04:00 | NUR ---
VITAL SIGNS WITHIN NORMAL LIMITS. PT IN STABLE CONDITION, NO SIGNS OF DISTRESS NOTED. BED IN LOW POSITION, CALL LIGHT WITHIN REACH. WILL CONTINUE TO MONITOR.
[2017-10-30] MEDS: CLINDAMYCIN 600 MG in DEXTROSE 5% 50 ML IV SCH ×3 (04:46→20:58)
--- NOTE | 2017-10-30 06:00 | NUR ---
ADMINISTERED SCHEDULED TORADOL, PT TOLERATED WELL. PT IN STABLE CONDITION, NO SIGNS OF DISTRESS NOTED. BED IN LOW POSITION, CALL LIGHT WITHIN REACH. WILL CONTINUE TO MONITOR.
[2017-10-30 07:21] LABS: BASOPHILS % (AUTO) 0.1 % (0.0-2.0); EOSINOPHILS % (AUTO) 0.2 % (0.0-4.0); HEMATOCRIT 27.3 % (36-52); HEMOGLOBIN 9.1 g/dL (12.0-18.0); LYMPHOCYTES # (AUTO) 0.7 K/uL (2.0-11.5); LYMPHOCYTES % (AUTO) 5.4 % (20.5-51.1); MEAN CORPUSCULAR HEMOGLOBIN 31 pg (27-31); MEAN CORPUSCULAR HGB CONC 34 g/dL (33-37); MEAN CORPUSCULAR VOLUME 93 fL (80-94); MONOCYTES # (AUTO) 0.6 K/uL (0.8-1.0); MONOCYTES % (AUTO) 4.8 % (1.7-9.3); NEUTROPHILS # (AUTO) 11.4 K/uL (1.8-7.7); NEUTROPHILS % (AUTO) 89.5 % (42.2-75.2); PLATELET COUNT (AUTO) 183 K/uL (140-450); RED BLOOD CELL COUNT(AUTO) 2.94 MIL/uL (4.20-6.10); RED CELL DISTRIBUTION WIDTH 15.1 % (11.6-13.7)
--- NOTE | 2017-10-30 07:22 | NUR ---
ENDORSED PT TO DAY SHIFT RN FOR CONTINUITY OF CARE, PT IN STABLE CONDITION.
--- NOTE | 2017-10-30 07:25 | NUR ---
RECEIVED REPORT FROM MALT SPECIFICATIONS CONTROL ASSISTANT NURSE, PT SLEEPING IN BED BUT EASILY AWAKEN, PT IS AAOX2-3, ON BEDREST, IV IS ON THE RT FA, PATENT, INTACT, FLUSHING WELL, IV ON LEFT AC, PATENT, INTACT, FLUSHING WELL, SALINE LOCKED, NO S/S OF RESPIRATORY DISTRESS OR DISCOMFORT NOTED, DISCUSSED PLAN OF CARE WITH PT, PT VERBALIZED UNDERSTANDING, CALL LIGHT WITHIN REACH, WILL CONTINUE TO MONITOR.
[2017-10-30 07:46] LABS: ANION GAP 11.8 (8-16); CARBON DIOXIDE 29.9 mmol/L (21-32); CREATININE 1.4 mg/dL (0.7-1.3); POTASSIUM 3.7 mmol/L (3.5-5.1)
[2017-10-30 08:00] VITALS: BP 114/92
[2017-10-30 08:23] LABS: WHITE BLOOD COUNT (AUTO) 12.7 K/uL (4.8-10.8)
[2017-10-30] MEDS: amLODIPine 5 MG TAB PO SCH (09:00)
[2017-10-30] MEDS: FERROUS GLUCONATE 324 MG TAB PO SCH ×2 (09:04→16:22)
[2017-10-30] MEDS: CARVEDILOL 12.5 MG TAB PO SCH ×2 (09:05→20:58)
[2017-10-30] MEDS: LACTOBACILLUS RHAMNOSUS GG 1 EACH CAP PO SCH (09:05)
[2017-10-30] MEDS: predniSONE 20 MG TAB PO SCH ×3 (09:08→16:23)
[2017-10-30] MEDS: HYDROXYCHLOROQUINE 200 MG TAB PO SCH (09:08)
[2017-10-30] MEDS: DOCUSATE SODIUM 100 MG GELCAP PO SCH ×2 (09:08→20:57)
--- NOTE | 2017-10-30 09:08 | NUR ---
DUE MEDICATIONS GIVEN, NORVASC WAS HELD DUE TO DECREASED BLOOD PRESSURE, PATIENT'S IS AT BEDSIDE.
[2017-10-30] MEDS: MORPHINE SULFATE 2 MG/ML SYR IVP PRN (09:09)
[2017-10-30] MEDS: ONDANSETRON 4 MG/2 ML VIAL IVP PRN ×2 (09:09→16:22)
[2017-10-30] MEDS: ASPIRIN 81 MG TAB.CHEW PO SCH (09:16)
[2017-10-30] MEDS: clonazePAM 0.5 MG TAB PO SCH ×3 (09:21→16:40)
--- NOTE | 2017-10-30 10:36 | NUR ---
PT NOTES CLEARED BY RN FOR P.T. TX. ATTEMPTED TO SEE PATIENT FOR P.T. TX, BUT PATIENT DECLINING TO PARTICIPATE. PATIENT GIVEN VERBAL ENCOURAGEMENT TO PARTICIPATE IN THERAPY, BUT PATIENT STATED, "I CAN'T EVEN WALK. I DON'T WANT TO." PATIENT EDUCATED ON THERAPY BENEFITS, BUT CONTINUES TO DECLINE. DICK "BAUTISTA" AWARE. PRIMARY THERAPIST AWARE. PVE Addendum: 10/30/17 at 1413 by Grisel Hampton PT PHYSICAL THERAPY CO-SIGN The Physical Therapy Progress Notes documented by Mechanical Product Design Engineer have been reviewed. Reviewed/Co-Signed by: Grisel Hampton,GAYATRI Documentation Done by: Carlo Juares PTA
[2017-10-30 12:00] VITALS: BP 131/57
[2017-10-30 16:00] VITALS: BP 98/54
[2017-10-30] MEDS: DEXT 5% / NACL 0.45% 1,000 ML IV SCH (16:16)
--- NOTE | 2017-10-30 16:47 | NUR ---
FAXED CONCURRENT REVIEW TO [facility] [phone] PHONE [phone] WAS TOLD THAT [facility] IS NOW JULISA, X [phone]. I SPOKE WITH JULISA ABOUT SNF'S AND HE SAID WE NEED TO TRY ALSO TO GET A SNF AND HE WOULD FAX SNF LIST.
--- NOTE | 2017-10-30 17:05 | NUR ---
I SPOKE TO DR. TAYLOR, I LET HIM KNOW THE PATIENT'S BLOOD PRESSURE WAS LOW, RANGING FROM 72/50, 85/62 TO 98/44, WITH 72/50 BEING THE MOST RECENT BLOOD PRESSURE. DR. TAYLOR SAID HE WOULD GO IN AND TALK TO THE PATIENT.
[2017-10-30] MEDS: LEVOFLOXACIN 750 MG/D5W PREMIX 150 ML IV SCH (17:15)
[2017-10-30] MEDS ORDERED: PROMETHAZINE 25 MG TAB PO PRN (17:40)
[2017-10-30] MEDS ORDERED: PROMETHAZINE 6.25 MG/5 ML ORASYR PO PRN (17:55)
[2017-10-30] MEDS ORDERED: NACL 0.9% 500 ML IV SCH (18:40)
[2017-10-30] MEDS ORDERED: NACL 0.9% 1,000 ML IV ONE (18:40)
--- NOTE | 2017-10-30 18:43 | NUR ---
SPOKE TO DR. TAYLOR AND DR. SHETH. I LET THEM KNOW THE PATIENT'S BLOOD PRESSURE WAS STILL LOW 71/42, HR:125. PER DR. SHETH GIVE NS 500ML BOLUS.
--- NOTE | 2017-10-30 19:25 | NUR ---
ENDORSED PT TO EXHAUST EMISSIONS INSPECTOR NURSE FOR CONTINUITY OF CARE, INFORMED THE NURSE IF THE PATIENT CONTINUES TO BE HYPOTENSIVE AFTER THE BOLUS HE MAY NEED TO BE TRANSFERRED TO ICU PER DR. SHETH. IV BOLUS COMPLETED AT THIS TIME.
--- NOTE | 2017-10-30 19:26 | NUR ---
RECEIVED REPORT AT BEDSIDE FROM DAY SHIFT NURSE. PT A/OX3, ON ROOM AIR. PT IS ON BEDREST. PT HAS IV TO LEFT AC 18G, SL, AND RIGHT FA 20G INFUSING D5 0.45%NS@50ML/HR. PT HAS MULTIPLE SKIN TEARS AND SCABS TO B/L UPPER EXTREMITIES, AND B/L LOWER EXTREMITIES. SAFETY PRECAUTIONS IN PLACE. UPDATED BOARD. VITAL SIGNS WITHIN NORMAL LIMITS. PT IN STABLE CONDITION, NO SIGNS OF DISTRESS NOTED. BED IN LOW POSITION, CALL LIGHT WITHIN REACH. WILL CONTINUE TO MONITOR.
--- NOTE | 2017-10-30 19:50 | NUR ---
SPOKE WITH DR RENEE REGARDING LOW BP, ORDERED 500ML NS BOLUS. WILL CONTINUE TO MONITOR BP.
[2017-10-30 20:00] VITALS: BP 84/52
[2017-10-30] MEDS ORDERED: NACL 0.9% 500 ML IV ONE (20:00)
[2017-10-30] MEDS: lamoTRIgine 25 MG TAB PO SCH (20:57)
[2017-10-30] MEDS: LORazepam 0.5 MG TAB PO SCH (20:58)
--- NOTE | 2017-10-30 21:00 | NUR ---
BOLUS DONE AND BP NOW 95/74. WILL CONTINUE TO MONITOR BP.
--- NOTE | 2017-10-30 21:02 | NUR ---
ADMINISTER SCHEDULED MEDICATIONS, PT TOLERATED WELL. HELD COREG AND ATIVAN DUE TO PT HAVING LOW BP AT THE MOMENT, DR RENEE IS IN AGREEMENT.
[2017-10-31] VITALS (7 sets, daily range): BP systolic 86–112; BP diastolic 61–74
--- NOTE | 2017-10-31 | NUR ---
VITAL SIGNS WITHIN NORMAL LIMITS, BLOOD PRESSURE STABLE NOW. PT IN STABLE CONDITION, NO SIGNS OF DISTRESS NOTED. BED IN LOW POSITION, CALL LIGHT WITHIN REACH. WILL CONTINUE TO MONITOR.
[2017-10-31] MEDS: ONDANSETRON 4 MG/2 ML VIAL IVP PRN (00:09)
--- NOTE | 2017-10-31 02:38 | NUR ---
PT HAS BEEN TACHYCARDIC ON THE HEART MONITOR, 120-135, MADE DR. RENEE AWARE. PT SEEMS STABLE, SLEEPING, BP IS NOW 103/79. WILL CONTINUE TO MONITOR.
[2017-10-31] MEDS ORDERED: LIDOCAINE VISCOUS 2% 20 ML UDC PO SCH (03:15)
[2017-10-31] MEDS ORDERED: ALUMINUM HYD/MAG/SIMETHICONE 30 ML UDC PO SCH (03:15)
[2017-10-31] MEDS ORDERED: DICYCLOMINE HCL LIQUID 10 MG/5 ML UDC PO SCH (03:15)
--- NOTE | 2017-10-31 03:34 | NUR ---
PT ASKED FOR MEDICATIONS FOR HIS "STOMACH" WHEN ASKED TO DESCRIBE WHAT HE WAS FEELING PT STATES "I FEEL LIKE MY GAVE ME ULCERS." EXPLAINED TO DR RENEE, AND SHE SAID SHE WOULD ORDER SOMETHING. ADMINISTERED MEDICATIONS ORDERED, PT TOLERATED WELL.
--- NOTE | 2017-10-31 04:35 | NUR ---
VITAL SIGNS WITHIN NORMAL LIMITS. BP STILL WNL. PT IN STABLE CONDITION, NO SIGNS OF DISTRESS NOTED. BED IN LOW POSITION, CALL LIGHT WITHIN REACH. WILL CONTINUE TO MONITOR.
[2017-10-31] MEDS: CLINDAMYCIN 600 MG in DEXTROSE 5% 50 ML IV SCH ×3 (05:14→20:15)
[2017-10-31] MEDS: KETOROLAC 15 MG/ML VIAL IVP SCH (05:54)
[2017-10-31 06:29] LABS: HEMATOCRIT 24.9 % (36-52); HEMOGLOBIN 8.5 g/dL (12.0-18.0); MEAN CORPUSCULAR HEMOGLOBIN 32 pg (27-31); MEAN CORPUSCULAR HGB CONC 34 g/dL (33-37); MEAN CORPUSCULAR VOLUME 93 fL (80-94); PLATELET COUNT (AUTO) 198 K/uL (140-450); RED BLOOD CELL COUNT(AUTO) 2.68 MIL/uL (4.20-6.10); RED CELL DISTRIBUTION WIDTH 15.5 % (11.6-13.7)
--- NOTE | 2017-10-31 07:10 | NUR ---
RECEIVED PATIENT REPORT AT BEDSIDE. PATIENT IS AWAKE AND ORIENTED BUT DROWSY. PATIENT ON ROOM AIR. NO SOB. NO S/S OF DISTRESS NOTED. O2 SATURATION 98% AT THIS TIME. IV LINE NOTED TO THE LEFT FOREARM WITH IVF INFUSING WELL. IV LINE NOTED TO THE LEFT AC SALINE LOCKED. PATIENT ON TELE MONITORING. BED LOWERED WITH CALL LIGHT WITHIN REACH. WILL CONTINUE TO MONITOR
--- NOTE | 2017-10-31 07:19 | NUR ---
ENDORSED PT IN STABLE CONDITION TO DAY SHIFT RN FOR CONTINUITY OF CARE.
[2017-10-31 07:44] LABS: ANION GAP 13.8 (8-16); POTASSIUM 3.8 mmol/L (3.5-5.1)
[2017-10-31 07:45] LABS: CREATININE 1.6 mg/dL (0.7-1.3)
[2017-10-31] MEDS: LACTOBACILLUS RHAMNOSUS GG 1 EACH CAP PO SCH (08:24)
[2017-10-31] MEDS: DOCUSATE SODIUM 100 MG GELCAP PO SCH ×2 (08:24→20:09)
[2017-10-31] MEDS: ASPIRIN 81 MG TAB.CHEW PO SCH (08:24)
[2017-10-31] MEDS: FERROUS GLUCONATE 324 MG TAB PO SCH ×2 (08:24→17:33)
[2017-10-31] MEDS: predniSONE 20 MG TAB PO SCH ×3 (08:24→17:33)
[2017-10-31] MEDS: HYDROXYCHLOROQUINE 200 MG TAB PO SCH (08:24)
[2017-10-31] MEDS: CARVEDILOL 12.5 MG TAB PO SCH ×2 (08:25→21:00)
[2017-10-31] MEDS: amLODIPine 5 MG TAB PO SCH (08:25)
[2017-10-31] MEDS: clonazePAM 0.5 MG TAB PO SCH ×3 (08:26→17:37)
[2017-10-31 09:00] LABS: LYMPHOCYTES % (MANUAL) 4 % (20-46); METAMYELOCYTES % 1 % (0-0); MONOCYTES % (MANUAL) 7 % (5-12)
--- NOTE | 2017-10-31 09:00 | NUR ---
ADMINISTERED DUE MEDICATIONS. PATIENT TOLERATED WELL
--- NOTE | 2017-10-31 10:03 | NUR ---
Social Service Note: I faxed inquires to snfs located in [facility] since patient has [facility]: [facility]
[2017-10-31] MEDS ORDERED: ONDANSETRON 4 MG/2 ML VIAL IVP PRN ×2 (12:30→13:20)
[2017-10-31] MEDS: DEXT 5% / NACL 0.45% 1,000 ML IV SCH (12:32)
[2017-10-31] MEDS ORDERED: ALBUTEROL SULFATE/IPRATROPIU 3 ML SOL IH PRN (12:45)
--- NOTE | 2017-10-31 14:00 | NUR ---
PATIENT'S PRESENT IN THE ROOM, FEEDING THE PATIENT ROLA
[2017-10-31] MEDS: MORPHINE SULFATE 2 MG/ML SYR IVP PRN (15:24)
[2017-10-31] MEDS: LEVOFLOXACIN 750 MG/D5W PREMIX 150 ML IV SCH (17:20)
--- NOTE | 2017-10-31 17:32 | NUR ---
PATIENT SEEN BY DR VELASQUEZ
--- NOTE | 2017-10-31 19:23 | NUR ---
PATIENT REPORT GIVEN TO MOVIE SHOT CAMERAMAN NURSE. PATIENT ENDORSED IN STABLE CONDITION
--- NOTE | 2017-10-31 19:24 | NUR ---
RECEIVED HANDOFF REPORT FROM AM RN. PATIENT A&OX3. PATIENT RESTING IN BED. PATIENT DENIES PAIN AT THIS TIME. IV SITE PATENT AND INTACT. DRESSING DRY AND INTACT. SAFETY MEASURES ENSURED. NO SIGNS OR SYMPTOMS OF ACUTE DISTRESS NOTED. CALL LIGHT WITHIN REACH. WILL CONTINUE TO MONITOR.
[2017-10-31] MEDS: lamoTRIgine 25 MG TAB PO SCH (20:09)
[2017-10-31] MEDS: HYDROcodone/APAP 10/325 MG 1 TAB TAB PO PRN (20:10)
--- NOTE | 2017-10-31 20:24 | NUR ---
PM MEDS GIVEN WITH EDUCATION. PATIENT VERBALIZED UNDERSTANDING. REINFORCEMENT NEEDED. ATIVAN AND COREG HELD DUE TO LOW BP. MD AWARE. NO SIGNS OR SYMPTOMS OF DISTRESS NOTED. CALL LIGHT WITHIN REACH. WILL CONTINUE TO MONITOR.
[2017-10-31 20:32] LABS: ANION GAP 13.2 (8-16); CARBON DIOXIDE 24.5 mmol/L (21-32); CREATININE 1.7 mg/dL (0.7-1.3); POTASSIUM 3.7 mmol/L (3.5-5.1)
[2017-10-31 20:34] LABS: MAGNESIUM 1.7 mg/dL (1.8-2.4)
[2017-10-31 20:36] LABS: HEMATOCRIT 21.3 % (36-52); HEMOGLOBIN 7.2 g/dL (12.0-18.0); MEAN CORPUSCULAR HEMOGLOBIN 32 pg (27-31); MEAN CORPUSCULAR HGB CONC 34 g/dL (33-37); MEAN CORPUSCULAR VOLUME 94 fL (80-94); PLATELET COUNT (AUTO) 154 K/uL (140-450); RED BLOOD CELL COUNT(AUTO) 2.27 MIL/uL (4.20-6.10); RED CELL DISTRIBUTION WIDTH 15.4 % (11.6-13.7); WHITE BLOOD COUNT (AUTO) 20.5 K/uL (4.8-10.8)
[2017-10-31] MEDS: ALBUTEROL SULFATE/IPRATROPIU 3 ML SOL IH SCH (20:54)
[2017-10-31] MEDS: LORazepam 0.5 MG TAB PO SCH (21:00)
[2017-10-31 21:01] LABS: LYMPHOCYTES % (MANUAL) 5 % (20-46); MONOCYTES % (MANUAL) 2 % (5-12); PROMYELOCYTES % 1 % (0-0)
[2017-11-01] VITALS: BP 93/60
[2017-11-01] MEDS ORDERED: DEXT 5% /NACL 0.9% 1,000 ML IV SCH (01:10)
--- NOTE | 2017-11-01 01:50 | NUR ---
PATIENT STATES BREAKTHROUGH PAIN. MD AWARE. WILL MEDICATE ORDERED.
[2017-11-01] MEDS: HYDROcodone/APAP 10/325 MG 1 TAB TAB PO PRN ×3 (02:25→20:14)
[2017-11-01 04:00] VITALS: BP 108/79
[2017-11-01] MEDS: CLINDAMYCIN 600 MG in DEXTROSE 5% 50 ML IV SCH ×3 (05:43→20:25)
[2017-11-01] MEDS: MORPHINE SULFATE 2 MG/ML SYR IVP PRN (06:05)
--- NOTE | 2017-11-01 06:28 | NUR ---
CALLED CT TO FOLLOW UP WITH SERVICE. NO ANSWER. WILL TRY AGAIN.
[2017-11-01] MEDS: ALBUTEROL SULFATE/IPRATROPIU 3 ML SOL IH SCH ×4 (06:39→20:00)
--- NOTE | 2017-11-01 07:13 | NUR ---
RECEIVED REPORT FROM THE WILDLIFE BIOLOGY INTERNSHIP NURSE AT BEDSIDE. PT IS AWAKE AND ORIENTED. INTRODUCED MYSELF AND UPDATED THE BOARD. PT HAS MULTIPLE BRUISES ON BUE. NOTED DRESSING ON R CHEST, R ARM D/T SKIN TEAR. NOTED IV ON L 18G SL, AND R 20G INFUSING D5NS 50ML. PT WAS COMPLAINING THAT WE'RE NOT GIVING HIM METHADONE, WHICH MAKES HIM FEEL BETTER. RN EXPLAINED IT IS NOT FORMULARY. WILL CONTINUE TO ASSESS PT.
--- NOTE | 2017-11-01 07:15 | NUR ---
ENDORSED PLAN OF CARE TO AM RN. PATIENT IN STABLE CONDITION.
--- NOTE | 2017-11-01 07:51 | NUR ---
V/S WITHIN NORMAL LIMITS. RADIOLOGY IS HERE TO TAKE PT FOR CT. WILL AWAIT PT'S RETURN.
[2017-11-01 08:00] VITALS: BP 90/72
[2017-11-01] MEDS: FERROUS GLUCONATE 324 MG TAB PO SCH (08:00)
[2017-11-01] MEDS ORDERED: MAG SULF 2000 MG/WATER PREMIX 50 ML IV SCH (09:00)
[2017-11-01] MEDS: amLODIPine 5 MG TAB PO SCH (09:00)
[2017-11-01] MEDS: CARVEDILOL 12.5 MG TAB PO SCH ×2 (09:00→20:26)
[2017-11-01] MEDS: clonazePAM 0.5 MG TAB PO SCH ×3 (09:00→17:00)
[2017-11-01] MEDS: ASPIRIN 81 MG TAB.CHEW PO SCH (09:30)
[2017-11-01] MEDS: DOCUSATE SODIUM 100 MG GELCAP PO SCH ×2 (09:30→20:13)
[2017-11-01] MEDS: LACTOBACILLUS RHAMNOSUS GG 1 EACH CAP PO SCH (09:31)
[2017-11-01] MEDS: predniSONE 20 MG TAB PO SCH ×3 (09:31→17:18)
[2017-11-01] MEDS: HYDROXYCHLOROQUINE 200 MG TAB PO SCH (09:32)
--- NOTE | 2017-11-01 09:45 | NUR ---
WOKE PT UP ADMINISTERED MORNING MEDS. SWALLOWED THEM WELL. HELD ALL BP MEDS D/T DECREASE BP. ADMINISTERED MAG D/T LOW MAG LEVEL 1.7. REFUSED ADL'S AND BREAKFAST. JUST WANTS TO SLEEP. WILL CONTINUE TO MONITOR PT.
--- NOTE | 2017-11-01 10:11 | NUR ---
PT IS ASLEEP HHN NOT GIVEN NO APPARENT DISTRESS
[2017-11-01 12:00] VITALS: BP 91/67
[2017-11-01 12:18] LABS: MEAN CORPUSCULAR HEMOGLOBIN 32 pg (27-31); MEAN CORPUSCULAR HGB CONC 35 g/dL (33-37); MEAN CORPUSCULAR VOLUME 93 fL (80-94); PLATELET COUNT (AUTO) 145 K/uL (140-450); RED BLOOD CELL COUNT(AUTO) 1.81 MIL/uL (4.20-6.10); RED CELL DISTRIBUTION WIDTH 15.3 % (11.6-13.7); WHITE BLOOD COUNT (AUTO) 23.6 K/uL (4.8-10.8)
[2017-11-01 12:49] LABS: ANION GAP 11.8 (8-16); POTASSIUM 3.8 mmol/L (3.5-5.1)
[2017-11-01 12:50] LABS: CREATININE 1.6 mg/dL (0.7-1.3)
--- NOTE | 2017-11-01 13:00 | NUR ---
LAB CALLED. CRITICAL LABS. H/H: 5.8/16.7. NOTIFIED DR BURKS Addendum: 11/01/17 at 1342 by Janet Blackwood RN DARSHANA.
[2017-11-01 13:01] LABS: HEMOGLOBIN 5.8 g/dL (12.0-18.0)
[2017-11-01 13:02] LABS: BASOPHILS % (MANUAL) 0 % (0-2); EOSINOPHILS % (MANUAL) 0 % (0-4); HEMATOCRIT 16.7 % (36-52); LYMPHOCYTES % (MANUAL) 3 % (20-46); MONOCYTES % (MANUAL) 2 % (5-12)
[2017-11-01] MEDS ORDERED: FERRIC GLUCONATE 125 MG in NACL 0.9% 100 ML IV ONE (13:15)
[2017-11-01] MEDS ORDERED: FERRIC GLUCONATE 125 MG in NACL 0.9% 100 ML IV SCH (13:35)
--- NOTE | 2017-11-01 13:42 | NUR ---
PT WANTED TO FINALLY BE CHANGED. LENS MAKER AND I HELPED CHANGE ALL LINENS. PER , PT SEEMS SWOLLEN. C/O PAIN. WILL ADMINISTER PAIN MEDS.
[2017-11-01] MEDS ORDERED: ASCORBIC ACID 500 MG TAB PO SCH (13:46)
[2017-11-01] MEDS ORDERED: FERRIC GLUCONATE 62.5 MG/5 ML AMP IV SCH (15:00)
--- NOTE | 2017-11-01 15:13 | NUR ---
PT SLEEPING SOUNDLY. AND SON LEFT. NO SIGNS OF DISTRESS. WILL CONTINUE TO MONITOR PT.
--- NOTE | 2017-11-01 15:39 | NUR ---
PT IS ASLEEP FAMILY ART BEDSIDE NO APPARENT DISTRESS HHN NOT GIVEN
[2017-11-01 16:00] VITALS: BP 125/58
[2017-11-01 16:32] LABS: MEAN CORPUSCULAR HEMOGLOBIN 31 pg (27-31); MEAN CORPUSCULAR HGB CONC 34 g/dL (33-37); MEAN CORPUSCULAR VOLUME 92 fL (80-94); PLATELET COUNT (AUTO) 162 K/uL (140-450); RED BLOOD CELL COUNT(AUTO) 1.92 MIL/uL (4.20-6.10); RED CELL DISTRIBUTION WIDTH 15.4 % (11.6-13.7); WHITE BLOOD COUNT (AUTO) 24.8 K/uL (4.8-10.8)
--- NOTE | 2017-11-01 16:55 | NUR ---
LAB CALLED. H/H 6.0/17.7. NOTIFIED DR. TAYLOR. NO NEW ORDERS.
[2017-11-01 16:56] LABS: HEMATOCRIT 17.7 % (36-52)
[2017-11-01 17:04] LABS: LYMPHOCYTES % (MANUAL) 2 % (20-46); MONOCYTES % (MANUAL) 2 % (5-12)
[2017-11-01] MEDS: LEVOFLOXACIN 750 MG/D5W PREMIX 150 ML IV SCH (17:20)
--- NOTE | 2017-11-01 18:35 | NUR ---
PT REFUSED DINNER. RESTING COMFORTABLY. NO SIGNS OF DISTRESS. WILL CONTINUE TO MONITOR PT.
--- NOTE | 2017-11-01 19:10 | NUR ---
ENDORSED PT TO THE LEGISLATIVE AIDE NURSE AT BEDSIDE FOR CONTINUITY OF CARE. PT IN STABLE CONDITION.
--- NOTE | 2017-11-01 19:11 | NUR ---
RECEIVED HANDOFF REPORT FROM AM RN. PATIENT A&OX2. PATIENT RESTING IN BED, PATIENT STATES PAIN, WILL MEDICATE ORDERED. FAMILY IS IN WITH PATIENT. IV SITE PATENT AND INTACT. NO SIGNS OR SYMPTOMS OF ACUTE DISTRESS NOTED. SAFETY MEASURES ENSURED. CALL LIGHT WITHIN REACH. WILL CONTINUE TO MONITOR.
[2017-11-01 20:00] VITALS: BP 86/57
[2017-11-01] MEDS ORDERED: CLINDAMYCIN 600 MG/4 ML VIAL ONE (20:08)
[2017-11-01] MEDS: lamoTRIgine 25 MG TAB PO SCH (20:13)
[2017-11-01] MEDS: LORazepam 0.5 MG TAB PO SCH (20:26)
--- NOTE | 2017-11-01 20:27 | NUR ---
PM MEDS GIVEN WITH EDUCATION. PATIENT VERBALIZED UNDERSTANDING, REINFORCEMENT IS NEEDED. DUE TO LOW BP, COREG AND ATIVAN HELD. MD AWARE. NO SIGNS OF DISTRESS NOTED. SAFETY MEASURES ENSURED. CALL LIGHT WITHIN REACH. WILL CONTINUE TO MONITOR.
[2017-11-02] VITALS: BP 99/72
[2017-11-02] MEDS: HYDROcodone/APAP 10/325 MG 1 TAB TAB PO PRN ×2 (00:17→12:53)
[2017-11-02 04:00] VITALS: BP 112/67
--- NOTE | 2017-11-02 04:30 | NUR ---
PATIENT IV IS INFILTRATED. NO SIGNS OF DISTRESS NOTED. PATIENT DENIES PAIN DUE TO INFILTRATION. IV TAKEN OUT TIP INTACT. WILL START NEW ONE.
--- NOTE | 2017-11-02 05:15 | NUR ---
NEW IV STARTED. PATIENT TOLERATED WELL.
[2017-11-02] MEDS ORDERED: CLINDAMYCIN 600 MG/4 ML VIAL ONE (05:52)
[2017-11-02] MEDS: CLINDAMYCIN 600 MG in DEXTROSE 5% 50 ML IV SCH ×3 (05:59→20:59)
[2017-11-02] MEDS: ALBUTEROL SULFATE/IPRATROPIU 3 ML SOL IH SCH ×4 (06:35→19:30)
--- NOTE | 2017-11-02 07:00 | NUR ---
PATIENT BROUGHT FROM ICU AND SITUATED IN BED WITH THE ASSISTANCE OF MILES FALCON.
[2017-11-02 07:08] LABS: MEAN CORPUSCULAR HEMOGLOBIN 32 pg (27-31); MEAN CORPUSCULAR HGB CONC 35 g/dL (33-37); MEAN CORPUSCULAR VOLUME 93 fL (80-94); PLATELET COUNT (AUTO) 147 K/uL (140-450); RED BLOOD CELL COUNT(AUTO) 1.94 MIL/uL (4.20-6.10); RED CELL DISTRIBUTION WIDTH 15.8 % (11.6-13.7)
--- NOTE | 2017-11-02 07:10 | NUR ---
PATIENT RESPONDS WHEN CALLED BY HIS NAME NODS HEAD.IVF INFUSING WELL IV SITE PATENT.PATIENT HAS TELEMONITOR.REPORT ENDORSED TO DICK SERNA AT BEDSIDE.
--- NOTE | 2017-11-02 07:15 | NUR ---
RECEIVED BEDSIDE REPORT BY LINOLEUM LAYER HELPER NURSE AT BEDSIDE. PATIENT IS ASLEEP BUT AROUSABLE. PATIENT IS A&0 X2 TO NAME AND PLACE. PATIENT'S RESPIRATIONS ARE UNLABORED AND SYMMETRICAL. PATIENT SATURATION IS 95% AT THIS TIME. PATIENT DOES NOT COMPLAIN OF PAIN RIGHT NOW. INSTRUCTED PATIENT TO USE CALL LIGHT IF HE NEEDS HELP WITH ANYTHING. WILL CONTINUE TO MONITOR PATIENT.
--- NOTE | 2017-11-02 07:33 | NUR ---
ENDORSED PLAN OF CARE TO AM RN. PATIENT IN STABLE CONDITION.
[2017-11-02 07:37] LABS: HEMATOCRIT 18.1 % (36-52); HEMOGLOBIN 6.3 g/dL (12.0-18.0)
[2017-11-02 07:38] LABS: WHITE BLOOD COUNT (AUTO) 25.9 K/uL (4.8-10.8)
[2017-11-02 07:39] LABS: LYMPHOCYTES % (MANUAL) 5 % (20-46); MONOCYTES % (MANUAL) 2 % (5-12)
[2017-11-02 08:11] LABS: ALBUMIN 1.4 g/dL (3.4-5.0); CARBON DIOXIDE 24.1 mmol/L (21-32); CREATININE 1.9 mg/dL (0.7-1.3); POTASSIUM 4.1 mmol/L (3.5-5.1); TOTAL BILIRUBIN 0.2 mg/dL (0.0-1.0)
[2017-11-02 08:20] VITALS: BP 101/65
[2017-11-02] MEDS: CARVEDILOL 12.5 MG TAB PO SCH ×2 (09:00→21:00)
[2017-11-02] MEDS: clonazePAM 0.5 MG TAB PO SCH ×3 (09:00→17:00)
[2017-11-02] MEDS: amLODIPine 5 MG TAB PO SCH (09:00)
[2017-11-02] MEDS ORDERED: METHADONE 10 MG TAB PO SCH (09:45)
[2017-11-02] MEDS: HYDROXYCHLOROQUINE 200 MG TAB PO SCH (09:55)
[2017-11-02] MEDS: ASPIRIN 81 MG TAB.CHEW PO SCH (09:55)
[2017-11-02] MEDS: DOCUSATE SODIUM 100 MG GELCAP PO SCH ×2 (09:55→20:55)
[2017-11-02] MEDS: predniSONE 20 MG TAB PO SCH ×3 (09:55→17:07)
[2017-11-02] MEDS: LACTOBACILLUS RHAMNOSUS GG 1 EACH CAP PO SCH (09:56)
[2017-11-02] MEDS: ASCORBIC ACID 500 MG TAB PO SCH (09:56)
--- NOTE | 2017-11-02 10:00 | NUR ---
CLEANED AND TURNED PATIENT. CHANGED BEDSHEETS UNDER PATIENT ALONG WITH CHUX AND DRAW SHEET. PATIENT TOLERATED WELL.
--- NOTE | 2017-11-02 10:13 | NUR ---
WOUND CARE EVALUATION NOTE: REASON FOR EVALUATION: LOW ANUJ SCORE SKIN ASSESSMENT DONE, PATIENT IS AAOX4. SKIN WARM TO TOUCH WNL, SKIN TURGOR GOOD. BILATERAL UPPER EXTREMITIES AND UPPER CHEST MULTIPLE ECCHYMOSIS, THIN SKIN. CAPILLARY REFILLED <3 SEC. TOENAILS ARE SHORT AND THICKENED, NO HAIR GROWTH, BILATERAL DORSAL PEDAL PULSES PRESENT. PLAN OF CARE DISCUSSED WITH PRIMARY RN AND PT., PT. VERBALIZE UNDERSTANDS. INTEGUMENTARY: LEFT HAND WITH DRY BROWN SCAB 3X2 CM DEPTH IS UTD, NO DRAINAGE, JJ WOUND PINK, IRREGULAR WOUND EDGE RIGHT ARM SKIN TEAR 4X3CM LEFT AND RIGHT HEELS- BLANCHABLE REDNESS RECOMMENDATIONS: -NO TAPE TO SKIN -CLEANSE LEFT HAND DRY SCAB WITH NS, PAT DRY, PAINT WITH BETADINE SAIMA. BID AND LEAVE OPEN TO AIR -CLEANSE RIGHT ARM SKIN TEAR WITH NS. PAT DRY , APPLY VERSATEL, COVER WITH KERLIX Q5 DAYS AND PRN IF SOILING -TURN AND REPOSITION PATIENT Q 2H -ASSESS AND MONITOR SKIN CONDITION DURING POSITION CHANGE, PLEASE PAY PARTICULAR ATTENTION HEELS -OFFLOAD BILATERAL HEELS BY PLACING PILLOWS UNDER CALVES AT ALL TIMES, UNLESS OTHERWISE CONTRAINDICATED -PRESSURE REDISTRIBUTION SURFACE THERAPY -PODIATRY CONSULT IF ORDER BY PMD -KEEP SKIN CLEAN AND DRY AT ALL TIMES. MAY APPLY BODY LOTION TO DRYNESS AREA. RECOMMENDATIONS DISCUSSED WITH PRIMARY RN WILL FOLLOW UP PATIENT Q7- 10 DAYS AND PRN. PLEASE CONTACT WOUND CARE NURSE FOR ANY CONCERNS, QUESTIONS AND CHANGES IN SKIN CONDITION.
--- NOTE | 2017-11-02 10:30 | NUR ---
CALLED PICC LINE NURSE TEL. # AND SPOKE WITH JOSE [phone], JOSE STATED KALLIE PICC LINE NURSE WILL COME IN TODAY. CARLOS-DICK MADE AWARE.
--- NOTE | 2017-11-02 10:37 | NUR ---
PT IS SLEEPING WITH NO SIGNS OF DISTRESS NOTED AT THIS TIME,DICK GONZALEZ NOTIFIED
[2017-11-02 12:00] VITALS: BP 97/63
--- NOTE | 2017-11-02 12:28 | NUR ---
CM NOTE CONCURRENT REVIEW FAXED TO [facility] / FAX# [phone], ATTN: JULISA #[phone]
--- NOTE | 2017-11-02 12:55 | NUR ---
RECEIVED CONSENT SIGNATURE FROM PT FOR PICC LINE AND FOR BLOOD TRANSFUSION. 2 NURSES PRESENT. CALLED THE AGENCY FOR PICC LINE. NOTIFIED THEM THAT THE CONSENT IS SIGNED. WILL WAIT ON THE PICC LINE NURSE TO ARRIVE. ONCE PICC LINE IS INSERTED, WILL START ON THE BLOOD TRANSFUSION.
[2017-11-02] MEDS: METHADONE 10 MG TAB PO SCH ×2 (13:00→21:00)
--- NOTE | 2017-11-02 13:09 | NUR ---
PT NOTES CHART REVIEWED AND CLEARED FOR PT BY RN. PATIENT IN SEMIFOWLER POSITION SLEEPING AND EASILY AROUSED. PATIENT EXPRESSING FATIGUE AND STATING, "CAN'T RIGHT NOW" NO PAIN EXPRESSED AT THIS TIME, BUT EXPRESSED FATIGUE FROM BEING CLEANED EARLIER. PATIENT EDUCATED ON BENEFITS OF CONTINUED THERAPY PARTICIPATION TO PREVENT FURTHER WEAKNESS, BUT ASKED TO RETURN LATER, "MAYBE LATER" PER PATIENT. TRAY AND CALL LIGHT IN REACH. RETURNED TO PATIENTS ROOM IN AFTERNOON TO ATTEMPT THERAPY, BUT CONTINUES TO BE IN SUPINE SLEEPING AND EASILY AROUSED, BUT CONTINUES TO EXPRESS FATIGUE DESPITE MUCH EDUCATION/MOTIVATION ON CONTINUED BENEFITS OF THERAPY AND OOB. PATIENT CONTINUED TO DECLINE PARTICIPATION. PATIENT COOPERATIVE AND APPRECIATIVE OF PT CARE, RN MADE AWARE. WILL FOLLOW UP PATIENT TOMORROW IF POSSIBLE. PVEx2 Addendum: 11/02/17 at 1401 by Tootie Knox PT PHYSICAL THERAPY CO-SIGN The Physical Therapy Progress Notes documented by Credit Risk Associate have been reviewed. Reviewed/Co-Signed by: Tootie Knox DPT Documentation Done by: Stew Luther PTA Weekly assessment completed, chart reviewed, based on previous txs, patient progressing slowly with therapy, cont to require mod/max encouragement to participate. Patient cont to demo weakness, slowly progressing with bed mobility, transfers, but unable anna anna initiating gait, will cont to benefit from further skilled PT tx once daily 3x/wk x 1 wk for ther ex/activity, transfer/gait/balance trng, and patient/fam edu. Cont with initial PT goals, cont with PT POC as anna/safe.
--- NOTE | 2017-11-02 13:27 | NUR ---
CM NOTE SPOKE W/ LINH EGAN FOR [facility] (C: [phone]). MADE AWARE OF CURRENT ABNORMAL LABS. WBC STILL UNSTABLE BUT CM WOULD STILL LIKE TO PLAN FOR DISCHARGE ONCE STABLE. PROVIDED FAX# FOR LIST OF CONTRACTED SNF'S.
[2017-11-02] MEDS: NACL 0.9% IRR 250 ML BOTTLE IR SCH (13:30)
--- NOTE | 2017-11-02 14:30 | NUR ---
PICC LINE INSERTED. WAITING ON XRY CONFIRMATION BEFORE WE USE TO TRANSFUSE. WILL CONTINUE TO MONITOR PT.
--- NOTE | 2017-11-02 14:50 | NUR ---
CLEANSED PATIENTS SKIN TEAR WITH NORMAL SALINE AND PAT DRY WITH GAUZE. COVERED PATIENTS SKIN TEAR WITH VERSATEL AND WRAPPED WITH KERLIX. PATIENT TOLERATED WELL. WILL NOTIFY NIGHTSHIFT NURSE THAT IT NEEDS TO BE CHANGED EVERY 5 HOURS OR PRN.
--- NOTE | 2017-11-02 15:11 | NUR ---
PT SLEEPING WITH NO SIGNS OF DISTRESS NOTED AT THIS TIME, NO BREATHING TX GIVEN
--- NOTE | 2017-11-02 15:27 | NUR ---
CM NOTE PER ANIKA FROM [facility], UNABLE TO TAKE PATIENT. PER LILIAM FROM [facility], WILL NEED DULCE MARIA TO TAKE PATIENT. FAXED PATIENT INFORMATION TO [facility] / FAX# [phone], ATTN: SHANIQUA Addendum: 11/02/17 at 1539 by Carl Ward RN FAXED PATIENT INFORMATION TO [facility] / FAX# [phone], ATTN: MALINA
[2017-11-02 16:00] VITALS: BP 94/61
--- NOTE | 2017-11-02 16:30 | NUR ---
VERIFIED PATIENT'S BLOOD AT BEDSIDE WITH NURSE CARLOS. ALL NUMBERS VERIFIED AND MATCHED PATIENT AND BAG OF BLOOD. STARTED PATIENT'S BLOOD TRANSFUSION. CHECKED VITAL SIGNS BEFOREHAND. PATIENT VITALS AT BASELINE. PATIENT TOLERATING WELL. SITTING AT BEDSIDE WITH PATIENT MONITORING PATIENT AND WILL CHECK VITAL SIGNS IN FIFTEEN MINUTES. PATIENT IS IN STABLE CONDITION.
--- NOTE | 2017-11-02 16:45 | NUR ---
SITTING AT BEDSIDE WITH PATIENT. VITAL SIGNS ARE AT BASELINE. PATIENT TOLERATING BLOOD TRANSFUSION WELL.
--- NOTE | 2017-11-02 17:00 | NUR ---
RECHECKED PATIENTS VITAL SIGNS AT BEDSIDE. VITAL SIGNS ARE WITHIN NORMAL LIMITS. WILL CONTINUE TO MONITOR PATIENT AND RECHECK VITAL SIGNS.
--- NOTE | 2017-11-02 18:10 | NUR ---
PT RESTING COMFORTABLY. REFUSED DINNER. BLOOD TRANSFUSION STILL GOING. WILL CONTINUE TO MONITOR PT.
--- NOTE | 2017-11-02 19:20 | NUR ---
BEDSIDE REPORT GIVEN TO KAIAKO KOHANGA REO NURSE AT BEDSIDE. PATIENT RESTING COMFORTABLY IN BED. BLOOD TRANSFUSION IS ABOUT TO FINISH. PATIENT SHOWS NO SIGNS OF ALLERGIC REACTION. PATIENTS BREATHING IS UNLABORED AND SYMMETRICAL. PATIENT COMPLAINS OF NO PAIN. ENCOURAGED PATIENT TO EAT THE THE REST OF THE FOOD. CALL LIGHT IS WITHIN REACH OF PATIENT. ENDORSED CARE TO CHECK LAST SET OF VITAL SIGNS OF PATIENT AFTER BLOOD TRANSFUSION. PATIENT IS IN STABLE CONDITION.
--- NOTE | 2017-11-02 19:21 | NUR ---
RECEIVED REPORT AT BEDSIDE FROM DAY SHIFT NURSE. PT A/OX3, ON ROOM AIR. PT IS ON BEDREST. PT HAS PICC LINE TO RIGHT UPPER ARM, RECEIVING BLOOD TRANSFUSION AT THE MOMENT. PT HAS MULTIPLE SKIN TEARS AND SCABS TO B/L UPPER EXTREMITIES, AND B/L LOWER EXTREMITIES. SAFETY PRECAUTIONS IN PLACE. UPDATED BOARD. VITAL SIGNS WITHIN NORMAL LIMITS. PT IN STABLE CONDITION, NO SIGNS OF DISTRESS NOTED. BED IN LOW POSITION, CALL LIGHT WITHIN REACH. WILL CONTINUE TO MONITOR.
[2017-11-02 19:30] LABS: PROTHROMBIN TIME 9.9 secs (10.8-13.4)
--- NOTE | 2017-11-02 19:50 | NUR ---
BLOOD TRANSFUSION ENDED, NO REACTIONS NOTED. PT TOLERATED WELL. BLOOD BAG AND LINE REMOVED AND DISPOSED OF PROPERLY. PT IN STABLE CONDITION, NO SIGNS/SYMPTOMS OF DISTRESS NOTED.
[2017-11-02 20:00] VITALS: BP 95/59
[2017-11-02 20:27] LABS: MEAN CORPUSCULAR HEMOGLOBIN 33 pg (27-31); MEAN CORPUSCULAR HGB CONC 35 g/dL (33-37); MEAN CORPUSCULAR VOLUME 95 fL (80-94); PLATELET COUNT (AUTO) 100 K/uL (140-450); RED CELL DISTRIBUTION WIDTH 15.2 % (11.6-13.7); WHITE BLOOD COUNT (AUTO) 17.9 K/uL (4.8-10.8)
[2017-11-02 20:37] LABS: HEMATOCRIT 18.1 % (36-52); HEMOGLOBIN 6.3 g/dL (12.0-18.0)
[2017-11-02 20:44] LABS: MONOCYTES % (MANUAL) 2 % (5-12)
[2017-11-02] MEDS: lamoTRIgine 25 MG TAB PO SCH (20:55)
[2017-11-02] MEDS: LORazepam 0.5 MG TAB PO SCH (21:00)
--- NOTE | 2017-11-02 21:00 | NUR ---
ADMINISTERED SCHEDULED MEDICATIONS, PT TOLERATED WELL. HELD METHADONE, ATIVAN, AND COREG DUE TO PT HAVING DECREASED BLOOD PRESSURE. PT IN STABLE CONDITION. WILL CONTINUE TO MONITOR.
[2017-11-02] MEDS ORDERED: ACETAMINOPHEN EXTRA STRENGTH 500 MG TAB PO ONE (23:30)
--- NOTE | 2017-11-02 23:30 | NUR ---
ORDERED 1 UNIT OF PRBC'S, WILL SET UP FOR TRANSFUSION.
--- NOTE | 2017-11-02 23:55 | NUR ---
INFORMED DR RENEE THAT PT BP IS 70/[address] RENEE WILL ORDER 500ML NS BOLUS.
[2017-11-03] VITALS (10 sets, daily range): BP systolic 70–117; BP diastolic 50–81
[2017-11-03] MEDS ORDERED: NACL 0.9% 500 ML IV ONE
--- NOTE | 2017-11-03 00:45 | NUR ---
STARTED BLOOD TRANSFUSION WITH DICK RECIO SECOND BOTTLING LINE OPERATOR. WILL MONITOR PT THROUGHOUT TRANSFUSION.
[2017-11-03] MEDS: NACL 0.9% IRR 250 ML BOTTLE IR SCH ×2 (01:30→12:41)
--- NOTE | 2017-11-03 03:21 | NUR ---
PT TOLERATED BLOOD TRANSFUSION WELL. NO SIGNS OF REACTION. PT IS STABLE, VITAL SIGNS ARE MORE STABLE NOW WITH SBP AT 103.
--- NOTE | 2017-11-03 04:00 | NUR ---
PT IN STABLE CONDITION, NO SIGNS OF DISTRESS NOTED. BED IN LOW POSITION, CALL LIGHT WITHIN REACH. WILL CONTINUE TO MONITOR.
[2017-11-03] MEDS: METHADONE 10 MG TAB PO SCH ×3 (05:00→20:06)
[2017-11-03] MEDS: CLINDAMYCIN 600 MG in DEXTROSE 5% 50 ML IV SCH ×3 (05:43→20:04)
--- NOTE | 2017-11-03 05:45 | NUR ---
SPOKE WITH DR RENEE TO INFORM HER ABOUT PT LEFT HAND GRAYISH/BLUE DISCOLORATION. CAPILLARY REFILL OK, BUT THAT GREYISH/BLUE DISCOLORATION WAS NOT THERE BEFORE. PT SATURATING BETWEEN 96 AND 98%. NO NEW ORDERS AT THIS TIME.
[2017-11-03 06:48] LABS: BASOPHILS # (AUTO) 0.1 K/uL (0.00-0.22); BASOPHILS % (AUTO) 0.4 % (0.0-2.0); EOSINOPHILS % (AUTO) 0.3 % (0.0-4.0); HEMATOCRIT 21.7 % (36-52); HEMOGLOBIN 7.4 g/dL (12.0-18.0); LYMPHOCYTES # (AUTO) 0.5 K/uL (2.0-11.5); LYMPHOCYTES % (AUTO) 3.4 % (20.5-51.1); MEAN CORPUSCULAR HEMOGLOBIN 33 pg (27-31); MEAN CORPUSCULAR HGB CONC 34 g/dL (33-37); MEAN CORPUSCULAR VOLUME 96 fL (80-94); MONOCYTES # (AUTO) 0.3 K/uL (0.8-1.0); MONOCYTES % (AUTO) 2.1 % (1.7-9.3); NEUTROPHILS # (AUTO) 13.9 K/uL (1.8-7.7); NEUTROPHILS % (AUTO) 93.8 % (42.2-75.2); PLATELET COUNT (AUTO) 94 K/uL (140-450); RED BLOOD CELL COUNT(AUTO) 2.26 MIL/uL (4.20-6.10); RED CELL DISTRIBUTION WIDTH 14.6 % (11.6-13.7); WHITE BLOOD COUNT (AUTO) 14.8 K/uL (4.8-10.8)
--- NOTE | 2017-11-03 07:15 | NUR ---
ENDORSED PT IN STABLE CONDITION TO DAY SHIFT RN FOR CONTINUITY OF CARE.
--- NOTE | 2017-11-03 07:16 | NUR ---
RECEIVED REPORT FROM LVN LPN NURSE DAHLIA AT BEDSIDE FOR CONTINUITY OF CARE. PT IS AWAKE AND ORIENTED X4. INTRODUCED SELF AND UPDATED BOARD. LUNG SOUNDS CLEAR ON AUSCULTATION. PICC LINE TO RIGHT UPPER ARM INTACT WITH IV NS INFUSING AT 40ML/HR. DRESSING TO RIGHT ARM DRY AND INTACT. DR. SILVA AND RESIDENTS CAME IN AND SPOKE WITH PT. NO SIGNS OF DISTRESS. BED IN LOW POSITION, WHEELS LOCKED, CALL LIGHT WITHIN REACH. WILL CONTINUE TO MONITOR.
[2017-11-03 07:18] LABS: MAGNESIUM 2.1 mg/dL (1.8-2.4); PHOSPHORUS 5.1 mg/dL (2.5-4.9)
[2017-11-03 07:38] LABS: ANION GAP 14.4 (8-16); CARBON DIOXIDE 24.6 mmol/L (21-32); CREATININE 1.8 mg/dL (0.7-1.3)
[2017-11-03] MEDS: ALBUTEROL SULFATE/IPRATROPIU 3 ML SOL IH SCH ×4 (07:41→20:43)
[2017-11-03] MEDS: NACL 0.9% 1,000 ML IV SCH (08:46)
[2017-11-03] MEDS: CARVEDILOL 12.5 MG TAB PO SCH ×2 (09:00→20:06)
[2017-11-03] MEDS: clonazePAM 0.5 MG TAB PO SCH ×3 (09:00→17:00)
[2017-11-03] MEDS: amLODIPine 5 MG TAB PO SCH (09:00)
--- NOTE | 2017-11-03 09:30 | NUR ---
PT'S FAMILY MEMBER BROUGHT [employer] BREAKFAST FOR PT. BECAUSE HE STATED "HE DID NOT LIKE THE FOOD HERE" AND REFUSED TO EAT BREAKFAST TRAY. ATE 100% OF MEAL FROM FAMILY. SITTING IN BED NOW WATCHING TV. NO SIGNS OF DISTRESS. WILL CONTINUE TO MONITOR.
[2017-11-03] MEDS: ASPIRIN 81 MG TAB.CHEW PO SCH (09:45)
[2017-11-03] MEDS: ATORVASTATIN 20 MG TAB PO SCH (09:45)
[2017-11-03] MEDS: LACTOBACILLUS RHAMNOSUS GG 1 EACH CAP PO SCH (09:45)
[2017-11-03] MEDS: DOCUSATE SODIUM 100 MG GELCAP PO SCH ×2 (09:45→20:05)
[2017-11-03] MEDS: predniSONE 20 MG TAB PO SCH ×3 (09:45→18:00)
[2017-11-03] MEDS: ASCORBIC ACID 500 MG TAB PO SCH (09:45)
[2017-11-03] MEDS: HYDROXYCHLOROQUINE 200 MG TAB PO SCH (09:45)
[2017-11-03] MEDS: FERROUS GLUCONATE 324 MG TAB PO SCH (09:45)
[2017-11-03] MEDS: LEVOFLOXACIN 750 MG/D5W PREMIX 150 ML IV SCH (09:53)
--- NOTE | 2017-11-03 09:53 | NUR ---
ADMINISTERED LEVAQUIN IVPB. WASTED ONE BAG OF LEVAQUIN DUE TO DEFECTIVE PORT AND LEAKING BAG. PT TOLERATED WELL.
--- NOTE | 2017-11-03 11:13 | NUR ---
PT IS ASLEEP HHN NOT GIVEN NO APPARENT DISTRESS
[2017-11-03] MEDS ORDERED: MYCOPHENOLATE 250 MG CAP PO SCH (12:00)
[2017-11-03] MEDS ORDERED: MYCOPHENOLATE 250 MG CAP PO ONE (12:38)
--- NOTE | 2017-11-03 12:41 | NUR ---
ADMINISTERED SCHEDULED MEDS. HELD KLONOPIN AND METHADONE DUE TO PT FALLING ASLEEP. PT TOLERATED ADMINISTERED MEDS WELL. NO SIGNS OF DISTRESS. PT IS SLEEPING IN BED. CALL LIGHT WITHIN REACH. WILL CONTINUE TO MONITOR.
--- NOTE | 2017-11-03 13:59 | NUR ---
FAXED CONCURRENT REVIEW TO [facility] [phone] PHONE [phone], JULISA. PUT I CALL IN TO JULISA ABOUT SNF PLACEMENT. NO CALL BACK YET.
--- NOTE | 2017-11-03 14:11 | NUR ---
CALLED [facility] AND SPOKE WITH GABRIELA. NO SNF BEDS CALLED [facility]. FAXED INQUIRY TO THEM, ANDIE STOLL, PHONE [phone] CALLED [facility] AND SPOKE WITH TRESSA. FAXED INQUIRY TO [phone]
--- NOTE | 2017-11-03 14:31 | NUR ---
CALLED [facility] AND SPOKE WITH JANETT. NO [facility] BEDS PHONE [phone] CALLED [facility] [place] [phone] AND SPOKE WITH ELENA AND FAXED INQUIRY TO [phone].
--- NOTE | 2017-11-03 15:00 | NUR ---
PT HAD BM OF BLACK COLORED STOOL. MODERATED AMOUNT NOTED. CLEANED PT AND CHANGED LINENS. PT RESTING IN BED NOW. WILL CONTINUE TO MONITOR.
--- NOTE | 2017-11-03 15:06 | NUR ---
[facility] CANNOT TAKE PATIENT.
--- NOTE | 2017-11-03 15:18 | NUR ---
PT REFUSED HHN WANTS TO SLEEP NO APPARENT DISTRESS
--- NOTE | 2017-11-03 16:06 | NUR ---
11/03/17 RD FOLLOW UP COMPLETED. PLEASE REFER TO NUTRITION PROGRESS NOTE UNDER CARE ACTIVITY FOR ESTIMATED NUTRITION NEEDS. 1.PT TO CONTINUE WITH [facility] SOFT DIET FOR IMPROVED TOLERANCE. 2.DIETARY STAFF WILL VISIT PT DAILY TO ASSIST WITH MENU SELECTIONS AND ENCOURAGE INTAKE. 3.RD TO FOLLOW-UP IN 2-3 DAYS PATIENT IS HIGH RISK. JESSICA LIRA RD
--- NOTE | 2017-11-03 19:10 | NUR ---
ENDORSED PT TO BUILDER BEAM NURSE DAHLIA AT BEDSIDE FOR CONTINUITY OF CARE. PT IN STABLE CONDITION.
[2017-11-03] MEDS: lamoTRIgine 25 MG TAB PO SCH (20:04)
[2017-11-03] MEDS: LORazepam 0.5 MG TAB PO SCH (20:06)
--- NOTE | 2017-11-03 20:10 | NUR ---
HELD BLOOD PRESSURE AND NARCOTIC MEDICATIONS DUE TO BP. ADMINISTERED OTHER SCHEDULED MEDICATIONS, PT TOLERATED WELL. WILL CONTINUE TO MONITOR PT.
[2017-11-03] MEDS: HYDROcodone/APAP 10/325 MG 1 TAB TAB PO PRN (23:26)
[2017-11-04] VITALS (13 sets, daily range): BP systolic 64–115; BP diastolic 43–81
--- NOTE | 2017-11-04 | NUR ---
VITAL SIGNS WITHIN NORMAL LIMITS. PT IN STABLE CONDITION, NO SIGNS OF DISTRESS NOTED. BED IN LOW POSITION, CALL LIGHT WITHIN REACH. WILL CONTINUE TO MONITOR.
[2017-11-04] MEDS: NACL 0.9% 1,000 ML IV SCH ×2 (01:04→16:46)
[2017-11-04] MEDS: NACL 0.9% IRR 250 ML BOTTLE IR SCH ×2 (01:04→12:59)
--- NOTE | 2017-11-04 01:15 | NUR ---
PT KEEPS ASKING FOR SOMETHING STRONGER THAN NORCO FOR PAIN, EXPLAINED TO PT THAT BP HAS BEEN LOW AND NARCOTIC MEDICATIONS MIGHT LOWER HIS BP EVEN MORE, PT INSISTED I TALKED TO DR. SPOKE WITH DR RENEE, DR RENEE SAID IT WAS OK TO GIVE 1MG OF MORPHINE. WILL ADMINISTER AND KEEP CLOSE WATCH ON PT.
[2017-11-04] MEDS: MORPHINE SULFATE 2 MG/ML SYR IVP PRN (01:56)
--- NOTE | 2017-11-04 04:00 | NUR ---
VITAL SIGNS WITHIN NORMAL LIMITS. PT IN STABLE CONDITION, NO SIGNS OF DISTRESS NOTED. BED IN LOW POSITION, CALL LIGHT WITHIN REACH. WILL CONTINUE TO MONITOR.
[2017-11-04] MEDS: METHADONE 10 MG TAB PO SCH ×3 (05:00→21:00)
[2017-11-04] MEDS: CLINDAMYCIN 600 MG in DEXTROSE 5% 50 ML IV SCH ×3 (05:38→21:41)
[2017-11-04 06:55] LABS: HEMOGLOBIN 7.2 g/dL (12.0-18.0); MEAN CORPUSCULAR HEMOGLOBIN 33 pg (27-31); MEAN CORPUSCULAR HGB CONC 34 g/dL (33-37); MEAN CORPUSCULAR VOLUME 95 fL (80-94); PLATELET COUNT (AUTO) 115 K/uL (140-450); RED BLOOD CELL COUNT(AUTO) 2.21 MIL/uL (4.20-6.10); RED CELL DISTRIBUTION WIDTH 14.7 % (11.6-13.7)
[2017-11-04 07:07] LABS: ANION GAP 15.5 (8-16); CARBON DIOXIDE 21.3 mmol/L (21-32); CREATININE 1.6 mg/dL (0.7-1.3); POTASSIUM 3.8 mmol/L (3.5-5.1)
[2017-11-04] MEDS: ALBUTEROL SULFATE/IPRATROPIU 3 ML SOL IH SCH ×3 (07:08→19:45)
[2017-11-04 07:10] LABS: PHOSPHORUS 3.4 mg/dL (2.5-4.9)
--- NOTE | 2017-11-04 07:10 | NUR ---
PT REFUSED HHN TX. NO SOB OR DISTRESS NOTED. DIMINISHED BS WITH SPO2 OF 97% ON RA. WILL CONTINUE TO MONITOR.
[2017-11-04] MEDS ORDERED: CALCIUM ACETATE 667 MG TAB PO SCH (07:16)
--- NOTE | 2017-11-04 07:35 | NUR ---
ENDORSED PT IN STABLE CONDITION TO DAY SHIFT NURSE FOR CONTINUITY OF CARE.
--- NOTE | 2017-11-04 07:40 | NUR ---
RECEIVED REPORT FROM NIGHT NURSE AT PT BEDSIDE. PATIENT AWAKE AND ALERT. FOLLOWS COMMANDS. GENERALIZED WEAKNESS NOTED, RIGHT SIDE WEAKER THAN LEFT. PATIENT C/O DISCOMFORT, WILL MEDICATE ORDERED. NO S/S OF RESPIRATORY DISTRESS ON ROOM AIR. SKIN CLEAN AND DRY, OFFLOADED PRESSURE AREAS. CALL LIGHT WITHIN REACH.
[2017-11-04] MEDS: ATORVASTATIN 20 MG TAB PO SCH (08:37)
[2017-11-04] MEDS: LACTOBACILLUS RHAMNOSUS GG 1 EACH CAP PO SCH (08:37)
[2017-11-04] MEDS: predniSONE 20 MG TAB PO SCH ×3 (08:38→16:46)
[2017-11-04] MEDS: ASCORBIC ACID 500 MG TAB PO SCH (08:39)
[2017-11-04] MEDS: DOCUSATE SODIUM 100 MG GELCAP PO SCH ×2 (08:40→21:31)
[2017-11-04] MEDS: HYDROcodone/APAP 10/325 MG 1 TAB TAB PO PRN ×2 (08:40→13:00)
[2017-11-04] MEDS: ASPIRIN 81 MG TAB.CHEW PO SCH (08:40)
[2017-11-04] MEDS ORDERED: CALCIUM ACETATE 667 MG TAB ONE (08:43)
[2017-11-04] MEDS: LEVOFLOXACIN 750 MG/D5W PREMIX 150 ML IV SCH (08:44)
[2017-11-04] MEDS: CARVEDILOL 12.5 MG TAB PO SCH ×2 (08:47→21:00)
[2017-11-04] MEDS: clonazePAM 0.5 MG TAB PO SCH ×3 (08:47→16:47)
[2017-11-04] MEDS: HYDROXYCHLOROQUINE 200 MG TAB PO SCH (08:49)
[2017-11-04] MEDS: amLODIPine 5 MG TAB PO SCH (08:49)
[2017-11-04] MEDS ORDERED: MYCOPHENOLATE 250 MG CAP PO ONE (08:52)
[2017-11-04] MEDS ORDERED: MYCOPHENOLATE 250 MG CAP PO SCH (09:00)
[2017-11-04 09:42] LABS: LYMPHOCYTES % (MANUAL) 4 % (20-46); METAMYELOCYTES % 3 % (0-0); MONOCYTES % (MANUAL) 4 % (5-12)
--- NOTE | 2017-11-04 10:00 | NUR ---
PATIENT SEEN RESTING AFTER PAIN MEDICATION ADMINISTRATION. NO S/S OF ACUTE DISTRESS NOTED.
--- NOTE | 2017-11-04 12:26 | NUR ---
PATIENT'S SPOUSE AT BEDSIDE. PATIENT AND FAMILY MADE AWARE OF CURRENT PLAN OF CARE.
--- NOTE | 2017-11-04 13:01 | NUR ---
PT REFUSED HHN TX. DICK MORALEZ AT BEDSIDE. WILL CONTINUE TO MONITOR.
--- NOTE | 2017-11-04 13:03 | NUR ---
Spoke to Freda in admitting and stated that they do not accept medical/[facility] by itself, they take Medicare plus [facility] combined. Per Freda, no bed available.
--- NOTE | 2017-11-04 16:10 | NUR ---
DR. MARIE MADE AWARE OF LOW BP AND TACHYCARDIA. NEW ORDERS RECEIVED. EKG DONE AT BEDSIDE. 500ML BOLUS CURRENTLY RUNNING.
[2017-11-04] MEDS ORDERED: oxyCODONE/APAP 5/325 MG 1 TAB TAB PO PRN (16:35)
[2017-11-04] MEDS ORDERED: NACL 0.9% 500 ML IV SCH ×4 (16:35→22:00)
--- NOTE | 2017-11-04 16:41 | NUR ---
SPOKE WITH JULISA FROM [facility]. I GAVE HIM A VERBAL REPORT. HE SAID HE SPOKE TO HIS INFANT CAREGIVER AND WAS TOLD SINCE THE WBC IS GOING UP AGAIN, THAT MAYBE THEY NEED TO REDO SOME CULTURE. HE WAS ALSO CONCERNED ABOUT THE TACHY AND HB LOW. I INFORMED JULISA THAT THERE IS AN ORDER FOR STOOL FOR OB. JULISA ASKED ME TO SEND HIM A NEW PACKET FOR THIS PATIENT SO HE COULD ALSO TRY AND FIND A SNF. I FAXED A PACKET TO HIM AT [phone] PHONE [phone] TAYLOR AND TOLD HIM OF THE CONCERNS ABOUT THE WBC, HB AND TACHY.
[2017-11-04] MEDS ORDERED: oxyCODONE/APAP 5/325 MG 1 TAB TAB ONE (17:18)
--- NOTE | 2017-11-04 18:00 | NUR ---
PATIENT BP SUSTAINED IN LOW 90S. DR. MARIE AWARE. CONTINUE TO MONITOR. NO NEW ORDERS.
--- NOTE | 2017-11-04 19:29 | NUR ---
SBAR REPORT GIVEN TO DICK LAZO AT PT BEDSIDE. PATIENT CONTINUES TO SUSTAIN AT LOW BP, RN TO F/U WITH .
--- NOTE | 2017-11-04 19:30 | NUR ---
RECEIVED REPORT FROM AM NURSE. PT RESTING IN BED SEMIFOWLER, PALE, AOX3, AWAKE, PERRLA, ABLE TO COMMUNICATE AND ANSWER QUESTIONS, GENERALIZED WEAKNESS NOTED. VS TAKEN; BP 74/50, HR 117, SPO2 98% ON ROOM AIR, RR 24 EVEN AND SLIGHTLY LABORED; PT PUT ON TRENDELENBERG, BP 84/57, WILL NOTIFY MD AND MONITOR. MULTIPLE SCABS, DISCOLORATION AND SKIN TEARS NOTED THROUGHOUT BODY. SCDs IN PLACE. R ARM PICC, 2X LUMEN, ASYMPTOMATIC, PATENT AND INTACT. IVF INFUSING WELL. DISCUSSED AND REVIEWED PLAN OF CARE WITH PT. PT STATED OK. ALL NEEDS MET. SAFETY MEASURES ENSURED. CALL LIGHT WITHIN REACH.
--- NOTE | 2017-11-04 19:45 | NUR ---
DR RENEE AT BEDSIDE TO SEE AND SPEAK WITH PT. BP 84/57, HR 115, SPO2 98% ON ROOM AIR, RR 24 EVEN AND SLIGHTLY LABORED, STATED WE WILL MONITOR BP AT THIS TIME.
--- NOTE | 2017-11-04 19:46 | NUR ---
PT IS IN TRENDELENBURG POSITION DUE TO B/P CONCERN, UNABLE TO ELEVATED HEAD OF BED FOR HHN TREATMENT AT THIS TIME, NURSE DICK LAZO IS AWARE
[2017-11-04] MEDS ORDERED: DOCUSATE SODIUM 100 MG GELCAP PO ONE (20:26)
--- NOTE | 2017-11-04 20:37 | NUR ---
CALLED DR RENEE, MADE MD AWARE OF PERSISTENT LOW BP 68/44 AND 70/50, MD TO ORDER 500ML NS BOLUS.
[2017-11-04] MEDS: LORazepam 0.5 MG TAB PO SCH (21:00)
--- NOTE | 2017-11-04 21:00 | NUR ---
PT RECEIVED 500ML NS BOLUS, BP RECHECKED, 74/52 AND 72/46. PT REMAINS ON TRENDELENBERG POSITION. MADE DR RENEE AWARE.
[2017-11-04] MEDS: lamoTRIgine 25 MG TAB PO SCH (21:31)
--- NOTE | 2017-11-04 21:41 | NUR ---
PT RECEIVED 2ND 500ML NS BOLUS, BP 83/56, HR 111, SPO2 100% ON O2 2L NC, RR 24. DR RENEE AWARE. HELD DUE MEDS COREG PO, METHADONE PO AND ATIVAN PO DUE TO PERSISTENT HYPOTENSION. ADMINISTERED DUE MEDS COLACE PO AND LAMICTAL PO WHILE MOMENTARILY SEMIFOWLER, PT ABLE TO SWALLOW MEDS WELL, ADMINISTERED CLEOCIN IVPB, INFUSING WELL. PT PLACED BACK ON TRENDELENBERG. ALL NEEDS MET. WILL MONITOR.
--- NOTE | 2017-11-04 22:30 | NUR ---
PT RECEIVED 3RD 500ML NS BOLUS, BP 64/45, HR 101, SPO2 98% ON ROOM AIR, RR 24. CHARGE NURSE AND CROOK OPERATOR AWARE. CALLED DR VÍCTOR MD TO TRANSFER PT TO ICU.
--- NOTE | 2017-11-04 23:15 | NUR ---
TRANS IN FROM TELE THIS 62 YEAR OLD MALE PATIENT DUE TO HYPOTENSION.ASSISTED IN ICU 6, HOOKED TO RECEPTION MANAGER SCOPE SHOWS ON SINUS TACHY HR 103/MIN BP 68/43. PATIENT IS ALERT AND ORIENTED; FOLLOWS COMMANDS. VENTILATING ON ROOM AIR SO2 98-99%. WITH PICC LINE IN SITU TO RIGHT UPPER ARM AND COMMENCING ON IVF NORMAL SALINE AT 60 ML/HR; PATENT AND INTACT. BOTH ARM BRUISE AND SKIN TEAR NOTED ON RIGHT SIDE OF THE KNEE.
--- NOTE | 2017-11-04 23:15 | NUR ---
ENDORSED PLAN OF CARE TO STUDY HALL SUPERVISOR, PT TRANSFERRRED TO ICU BED 6
[2017-11-04] MEDS ORDERED: FLUCONAZOLE 100 MG/NS PREMIX 50 ML IV SCH (23:35)
[2017-11-04] MEDS ORDERED: PHENYLEPHRINE 10 MG/ML VIAL ONE (23:41)
[2017-11-04] MEDS ORDERED: VANCOMYCIN PER PHARMACY MC PRN (23:45)
--- NOTE | 2017-11-04 23:50 | NUR ---
BP STILL LOW 65/49; STARTED ON NEOSYNEPHRINE DRIP AT 50 MCG/MIN ORDERED.
[2017-11-05] VITALS (77 sets, daily range): BP systolic 0–127; BP diastolic 0–93
[2017-11-05] MEDS ORDERED: VANCOMYCIN 1GM/DEXT 5% PREMIX 200 ML IV SCH (00:08)
[2017-11-05] MEDS ORDERED: FLUCONAZOLE 200 MG/NS PREMIX 100 ML IV ONE (00:21)
--- NOTE | 2017-11-05 01:00 | NUR ---
PATIENT UNABLE TO PASSED URINE AND PATIENT COMPLAINED OF PAIN ON HYPOGASTRIC AREA; CHECKED AND BLADDER SEEMS TO BE DISTENDED; DR. RENEE INFORMED AND ORDERED TO DO STRAIGHT CATHETERIZATION; DONE ASEPTICALLY AND OBTAINED AROUND 300 ML OF CLEAR YELLOW URINE OUTPUT.
[2017-11-05] MEDS ORDERED: MORPHINE SULFATE 2 MG/ML SYR ONE ×2 (01:08→03:15)
[2017-11-05] MEDS: MORPHINE SULFATE 2 MG/ML SYR IVP PRN ×2 (01:11→03:18)
[2017-11-05] MEDS ORDERED: VANCOMYCIN 1,000 MG VIAL ONE (01:13)
[2017-11-05] MEDS ORDERED: PHENYLEPHRINE 10 MG/ML VIAL ONE ×2 (01:19→02:17)
[2017-11-05] MEDS: PHENYLEPHRINE 10 MG in NACL 0.9% 250 ML IV PRN ×3 (01:30)
--- NOTE | 2017-11-05 01:45 | NUR ---
ON MAXIMUM DOSE OF NEOSYNEPHRINE DRIP BUT BP STILL NOT IMPROVING; REFERRED TO DR. RENEE WITH NEW ORDER TO START PATIENT ON LEVOPHED DRIP PER PROTOCOL, CARRIED OUT.
[2017-11-05] MEDS ORDERED: NOREPINEPHRINE 4 MG/4 ML VIAL IV ONE (01:59)
[2017-11-05] MEDS: NOREPINEPHRINE 8 MG in DEXTROSE 5% 250 ML IV PRN ×2 (02:10→08:30)
[2017-11-05] MEDS: PHENYLEPHRINE 40 MG in NACL 0.9% 250 ML IV PRN ×4 (03:49→23:17)
--- NOTE | 2017-11-05 04:00 | NUR ---
BP STILLL LOW LEVOPHED DRIP TITRATED TO UP TO 20 MCG/MIN
[2017-11-05] MEDS ORDERED: LORazepam 0.5 MG TAB PO SCH (04:10)
[2017-11-05] MEDS ORDERED: LORazepam 0.5 MG TAB ONE (04:24)
[2017-11-05] MEDS: NACL 0.9% IRR 250 ML BOTTLE IR SCH ×2 (04:30→13:00)
[2017-11-05] MEDS: METHADONE 10 MG TAB PO SCH ×3 (05:00→21:00)
[2017-11-05] MEDS: CLINDAMYCIN 600 MG in DEXTROSE 5% 50 ML IV SCH (05:03)
[2017-11-05 05:08] LABS: HEMATOCRIT 22.2 % (36-52); HEMOGLOBIN 7.3 g/dL (12.0-18.0); MEAN CORPUSCULAR HEMOGLOBIN 31 pg (27-31); MEAN CORPUSCULAR HGB CONC 33 g/dL (33-37); MEAN CORPUSCULAR VOLUME 96 fL (80-94); PLATELET COUNT (AUTO) 121 K/uL (140-450); RED BLOOD CELL COUNT(AUTO) 2.31 MIL/uL (4.20-6.10); RED CELL DISTRIBUTION WIDTH 14.9 % (11.6-13.7); WHITE BLOOD COUNT (AUTO) 13.2 K/uL (4.8-10.8)
--- NOTE | 2017-11-05 05:30 | NUR ---
PATIENT COMPLAINED OF ABDOMINAL PAIN; SEEN AND EXAMINED BY DR. TAYLOR; WITH NEW ORDER TO SEND PATIENT FOR STAT CT OF ABDOMEN WITHOUT CONTRAST.
--- NOTE | 2017-11-05 06:10 | NUR ---
BP STILL LOW 83/50 LEVOPHED DRIP TITRATED UP TO 25 MCG/MIN.
[2017-11-05 06:25] LABS: MAGNESIUM 1.9 mg/dL (1.8-2.4); PHOSPHORUS 6.2 mg/dL (2.5-4.9)
[2017-11-05 06:30] LABS: ANION GAP 23.3 (8-16); CARBON DIOXIDE 13.3 mmol/L (21-32); CREATININE 2.3 mg/dL (0.7-1.3); POTASSIUM 4.6 mmol/L (3.5-5.1)
[2017-11-05 06:53] LABS: LYMPHOCYTES % (MANUAL) 8 % (20-46); MONOCYTES % (MANUAL) 7 % (5-12)
[2017-11-05] MEDS: NACL 0.9% 1,000 ML IV SCH (07:15)
--- NOTE | 2017-11-05 07:30 | NUR ---
ENDORSED TO AM MARILU ALBERT (REGISTRY) FOR CONTINUITY OF CARE.
--- NOTE | 2017-11-05 07:35 | NUR ---
ASSUMED PATIENT CARE, NURSING ASSESSMENT COMPLETED. PATIENT NOTED TO BE LETHARGIC BUT ROUSABLE WITH SHALLOW BREATHS, STARTED ON O2 VIA NC AT 2 LPM. WITH ONGOING VASOPRESSOR DRIPS FOR BP SUPPORT WITH NEOSYNEPHRINE(150 MCG/MIN) AND LEVOPHED (25 MCG/MIN).
--- NOTE | 2017-11-05 07:40 | NUR ---
PATIENT OUT OF ROOM IN RADIOLOGY FOR CT OF ABDOMEN POWDER WORKER TO ATTEMPT HHN THERAPY AT A LATER TIME
--- NOTE | 2017-11-05 07:42 | NUR ---
PT LEFT FOR ABD CT, ACCOMPANIED BY TWO RNS AND RADIO TECH.
[2017-11-05] MEDS ORDERED: CALCIUM ACETATE 667 MG TAB PO SCH (07:45)
[2017-11-05] MEDS: ALBUTEROL SULFATE/IPRATROPIU 3 ML SOL IH SCH ×4 (08:00→20:05)
--- NOTE | 2017-11-05 08:04 | NUR ---
DISCUSSED PATIENT'S CONDITION WITH RESIDENT MDS DURING ROUNDING AND INFORMED THEM OF PATIENT'S INCREASED LETHARGY AND SHALLOW RESPIRATIONS, TO WHICH THE DECISION TO INTUBATE WAS MADE ACCORDINGLY.
--- NOTE | 2017-11-05 08:20 | NUR ---
Natalia SOLIZ,BACKHAUL DRIVER AT BEDSIDE FOR INTUBATION BY DR. HANNAH GARLAND
--- NOTE | 2017-11-05 08:25 | NUR ---
PATIENT INTUBATED SUCCESSFULLY BY DR. HANNAH GARLAND CONFIRMATION BY COLORMETRIC WITH COLOR CHANGE OF YELLOW BREATH SOUNDS CONFIRMED VIA AUSCULTATION BY MD AND RECRUITMENT ADVERTISING MANAGER EQUAL AND CLEAR BILATERAL WITH GOOD AERATION THROUGHOUT GOOD CHEST RISE SATURATION NOW AT 97%
[2017-11-05] MEDS ORDERED: ETOMIDATE 20 MG/10 ML VIAL IVP ONE ×2 (08:27→10:42)
--- NOTE | 2017-11-05 08:30 | NUR ---
PATIENT PLACED ON A Harri VENTILATOR PLUGGED INTO RED OUTLET DR. HANNAH GARLAND IN AGREEMENT WITH VENTILATOR SETTINGS: MODE AC RATE 12 VT 500 ML PEEP 5 cmH20 FIO2 60%
--- NOTE | 2017-11-05 08:35 | NUR ---
RAPID SEQUENCE INTUBATION BY ER MD (DR GARLAND), ETOMIDATE 5 MG GIVEN IVP FOR INTUBATION, 7.5 ETT AT 23 LIP, PLACEMENT CONFIRMED BY COLOR CHANGE AND LUNG SOUND AUSCULTATION. CXR ORDERED ACCORDINGLY.
[2017-11-05] MEDS ORDERED: ALBUTEROL SULFATE/IPRATROPIU 3 ML SOL IH ONE (08:44)
[2017-11-05] MEDS ORDERED: NACL 0.9% 1,000 ML IV SCH ×2 (08:45→14:22)
--- NOTE | 2017-11-05 08:45 | NUR ---
VENTILATOR MODE CHANGED BY Austin GÓMEZ, MOIZ NOTED ON FLOW SHEET DR. DICK VELASQUEZ AWARE HHN THERAPY NOT DONE AT THIS TIME DUE TO MODE CHANGE AND ABG PROCEDURE IN 30 MINS HISTORICAL RECORDS ADMINISTRATOR TO ATTEMPT AT A LATER TIME
[2017-11-05] MEDS: ATORVASTATIN 20 MG TAB PO SCH (09:00)
[2017-11-05] MEDS: clonazePAM 0.5 MG TAB PO SCH ×3 (09:00→17:00)
[2017-11-05] MEDS: ASPIRIN 81 MG TAB.CHEW PO SCH (09:00)
[2017-11-05] MEDS: ASCORBIC ACID 500 MG TAB PO SCH (09:00)
[2017-11-05] MEDS: CARVEDILOL 12.5 MG TAB PO SCH ×2 (09:00→21:00)
[2017-11-05] MEDS: HYDROXYCHLOROQUINE 200 MG TAB PO SCH (09:00)
[2017-11-05] MEDS: DOCUSATE SODIUM 100 MG GELCAP PO SCH ×2 (09:00→21:00)
[2017-11-05] MEDS: HYDROCORTISONE NA SUCC 100 MG/2 ML VIAL IV SCH ×2 (09:00→21:13)
[2017-11-05] MEDS: FERROUS GLUCONATE 324 MG TAB PO SCH (09:00)
[2017-11-05] MEDS: LACTOBACILLUS RHAMNOSUS GG 1 EACH CAP PO SCH (09:00)
--- NOTE | 2017-11-05 09:19 | NUR ---
DR. VELASQUEZ AT BEDSIDE FOR CENTRAL LINE PROCEDURE PREKINDERGARTEN TEACHER TO ATTEMPT ABG AT A LATER TIME
--- NOTE | 2017-11-05 09:55 | NUR ---
ARTERIAL LINE PLACED TO RIGHT FEMORAL ARTERY BY CURING PICKLING PACKER MD DR MARTINEZ, RIGHT TRIPLE LUMEN CENTRAL LINE TO RIGHT FEMORAL VEIN. ASCEPTIC TECHNIQUE EMPLOYED.
--- NOTE | 2017-11-05 10:08 | NUR ---
ABG DONE DRAWN FRO ARTERIAL LINE
--- NOTE | 2017-11-05 10:15 | NUR ---
DR. NORA SANZ, ANESTHESIOLOGIST CALLED MD IN L&D LEFT MESSAGE
--- NOTE | 2017-11-05 10:20 | NUR ---
REVIEWED ABG SAMPLE REPORT WITH DR. NORA SANZ NO NEW ORDERS PER MD PATIENT TO PROCEED TO SURGERY
[2017-11-05] MEDS ORDERED: LEVOFLOXACIN 750 MG/D5W PREMIX 150 ML IV ONE (10:30)
[2017-11-05] MEDS: LEVOFLOXACIN 750 MG/D5W PREMIX 150 ML IV SCH (10:32)
[2017-11-05] MEDS ORDERED: SEVOFLURANE 250 ML BTL INH ONE (10:42)
[2017-11-05] MEDS ORDERED: ROCURONIUM 50 MG/5 ML VIAL IV ONE (10:42)
--- NOTE | 2017-11-05 10:49 | NUR ---
DR. LEIF SERRANO IN AT THIS TIME REVIEWED [facility] SAMPLE REPORT WITH MD Addendum: 11/05/17 at 1057 by Arie IRVING "IN ICU"
--- NOTE | 2017-11-05 10:52 | NUR ---
CALLED DR. GIO TAYLOR REVIEWED ABG SAMPLE REPORT NEW ORDER WITH ARCELIA/RN 1 NATASHA FISHMAN VIA ALEAH
[2017-11-05] MEDS ORDERED: SODIUM BICARBONATE 8.4% PFS 50 MEQ/50 ML SYR IVP ONE ×4 (10:55→13:32)
--- NOTE | 2017-11-05 10:55 | NUR ---
P.T. NOTES WILL AWAIT P.T. RE EVAL ORDER WHEN APPROPRIATE. Addendum: 11/07/17 at 1056 by Reina Cooper PT Amended: Links added.
--- NOTE | 2017-11-05 11:01 | NUR ---
DR. NORA SANZ, ANESTHESIOLOGIST AND OR STAFF AT BEDSIDE PREPPING PATIENT FOR TRANSFER TO SURGERY PATIENT LOC EYES OPEN WITH MOVEMENT BREATH SOUNDS CLEAR BILATERAL WITH GOOD CHEST RISE AND AERATION THROUGHOUT
--- NOTE | 2017-11-05 11:01 | NUR ---
PATIENT BEING PREPPED FOR TRANSFER TO OR HHN THERAPY NOT GIVEN AT THIS TIME
[2017-11-05] MEDS ORDERED: fentaNYL 0.05 MG/ML VIAL ONE (11:05)
--- NOTE | 2017-11-05 11:05 | NUR ---
TRANSFERRED TO SURGICAL SUITE BY OR STAFF, PATIENT CARE ENDORSED TO THEM ACCORDINGLY. CONSENT FORMS FOR SIGNED BY PATIENT'S AFTER DISCUSSION WITH SURGEON.
--- NOTE | 2017-11-05 11:08 | NUR ---
PATIENT TRANSFERRED TO OR REMOVED FROM VENTILATOR PLACED ON AMBU BAG TO ENDOTRACHEAL TUBE WITH SUPPLEMENTAL OXYGEN VIA E-TANK AT 15 LPM BAG DEPRESSED EVERY 6-8 SECONDS SATURATION 100% HR 90 TOLERATED TRANSFER WELL WITHOUT INCIDENT
[2017-11-05 11:32] LABS: PROTHROMBIN TIME 20.1 secs (10.8-13.4)
--- NOTE | 2017-11-05 11:40 | NUR ---
RECEIVED CRITICAL LAB VALUE PTT 51.1. REPORTED TO DR. LEIF SERRANO IN THE OR.
--- NOTE | 2017-11-05 12:41 | NUR ---
INLINE HHN THERAPY WITH DUONEB NOT GIVEN AT THIS TIME PATIENT REMAINS IN OR
[2017-11-05] MEDS ORDERED: PANTOPRAZOLE 40 MG INJ VIAL IVP SCH (12:56)
[2017-11-05] MEDS ORDERED: CLINDAMYCIN 600 MG in DEXTROSE 5% 50 ML IV SCH (13:00)
[2017-11-05] MEDS ORDERED: MEROPENEM 500 MG in NACL 0.9% 50 ML IV SCH ×2 (13:00→15:34)
[2017-11-05] MEDS ORDERED: BUPIVACAINE-MPF 0.25% 30 ML VIAL INJ ONE (14:02)
[2017-11-05] MEDS ORDERED: ONDANSETRON 4 MG/2 ML VIAL IV PRN (14:25)
[2017-11-05] MEDS ORDERED: MORPHINE SULFATE 4 MG/ML SYR IV PRN (14:25)
[2017-11-05] MEDS ORDERED: ACETAMINOPHEN 325 MG TAB PO PRN (14:25)
[2017-11-05] MEDS ORDERED: MORPHINE SULFATE 2 MG/ML SYR IVP PRN (14:25)
[2017-11-05] MEDS ORDERED: TPN PER PHARMACY MC PRN (14:30)
--- NOTE | 2017-11-05 14:30 | NUR ---
SEDATED BREATH SOUNDS CLEAR BILATERAL WITH GOOD CHEST RISE AND [id number] THROUGHOUT DECREASE VT/EX 340 ML SATURATION 88% INCREASED PINSP TO 15 cmH20 AND FIO2 TO 70% CANDY MIXER TO NOTIFY RN
--- NOTE | 2017-11-05 15:34 | NUR ---
RECEIVED SP SURGERY FROM OR, RECEIVED REPORT FROM ANESTHESIOLOGIST. 2 UNITS PRBC, 1 UNIT FFP TRANSFUSED DURING SURGERY. EBL OF 200 ML, AND URINE OUTPUT OF 30 ML. RESUMED ED CARE AND MONITORING. KEEL PRESS OPERATOR AT BEDSIDE RESUMING VENT SUPPORT.
[2017-11-05] MEDS: SODIUM BICARBONATE 8.4% 100 MEQ in NACL 0.9% 1,000 ML IV SCH ×3 (16:02→23:15)
--- NOTE | 2017-11-05 16:02 | NUR ---
CM NOTE CONCURRENT REVIEW FAXED TO [facility] (FAX# [phone], ATTN: JULISA #[phone]) AND [facility] (FAX# [phone], ATTN: EARL #[phone])
--- NOTE | 2017-11-05 17:22 | NUR ---
CALLED DR. GIO TAYLOR [phone] REVIEWED ABG SAMPLE REPORT NO NEW ORDERS
--- NOTE | 2017-11-05 17:34 | NUR ---
SEDATED RESTING WELL NO DISTRESS NOTED GOOD CHEST RISE UNABLE TO OBTAIN SUFFICIENT AMOUNT OF SECRETIONS FOR VAP SAMPLE AGRICULTURAL RESEARCHER TO ENDORSE TO NOC SHIFT FOR VAP OBTAINMENT
--- NOTE | 2017-11-05 18:55 | NUR ---
INFORMED DR VELASQUEZ OF PATIENT'S URINE OUPUT OF 30 ML FOR THE DAY, WITH ORDERS OBTAINED ACCORDINGLY. PATIENT CARE REPORT TO TANGIBLE PERSONAL PROPERTY APPRAISER, CARE ENDORSED.
[2017-11-05] MEDS ORDERED: FUROSEMIDE 40 MG/4 ML VIAL IVP STA (19:01)
--- NOTE | 2017-11-05 19:40 | NUR ---
RECEIVED REPORT FORM AM NURSE AT BEDSIDE, PT IS LETHARGIC, NONVERBAL, VSS, FLACC 0, ETT TO VENT WITH SETTING OF AC/PC FIO2 80, CLEAR LUNG SOUNDS, SR ON PRODUCTION ANALYST, SOFT ABDOMEN WITH ACTIVE BOWEL SOUNDS, NGT TO RIGHT NARES, NPO AT THIS TIME, POSITIVE PLACEMENT, WALLIS CATHETER IN PLACE WITH CLOUDY YELLOW URINE NOTED, SKIN IS WARM AND DRY TO TOUCH, MULTIPLE SKIN TEARS NOTED, SURGICAL WOUND SITE TO ABDOMEN, COVERED WITH DRESSING, TWO MANDA DRAIN NOTED WITH SEROSANGUINEOUS DRAINAGE. GENERALIZED +2 PITTING EDEMA NOTED, SEVERE WEAKNESS TO ALL EXTREMITIES, PICC LINE TO RIGHT UPPER ARM, RUNNING LEVOPHED AT 15MCG/MIN, AND EVONNE AT 150MCG/MIN. A-LINE TO RIGHT FEMORAL, 103/57, CENTRAL LINE TO LEFT FEMORAL, RUNNING BICAB AT 150ML/HR. HOB ELEVATED 30 DEGREES, SAFETY PRECAUTION IN PLACE, WILL CONTINUE TO MONITOR.
[2017-11-05 19:57] LABS: HEMATOCRIT 23.7 % (36-52); HEMOGLOBIN 8.1 g/dL (12.0-18.0); MEAN CORPUSCULAR HEMOGLOBIN 31 pg (27-31); MEAN CORPUSCULAR HGB CONC 34 g/dL (33-37); MEAN CORPUSCULAR VOLUME 92 fL (80-94); RED BLOOD CELL COUNT(AUTO) 2.57 MIL/uL (4.20-6.10); RED CELL DISTRIBUTION WIDTH 14.5 % (11.6-13.7); WHITE BLOOD COUNT (AUTO) 9.3 K/uL (4.8-10.8)
[2017-11-05 19:59] LABS: PLATELET COUNT (AUTO) 34 K/uL (140-450)
--- NOTE | 2017-11-05 20:00 | NUR ---
LAB CALLED TO REDRAW BLOOD TEST DUE TO IVORY 5.9, BLOOD CULTURE AND UA COLLECTED ORDERED.
--- NOTE | 2017-11-05 20:05 | NUR ---
ASLEEP EASILY AWAKENS WITH FIRE CONTROL ASSISTANT VERBAL COMMANDS NO RESIDUAL SEDATION FROM OR RESTING COMFORTABLY NO EVIDENCE OF PULMONARY DISTRESS NOTED BREATH SOUNDS CLEAR AT LEFT SIDE TO FAINT DIFFUSED RHONCHI AT RIGHT SIDE ENDOTRACHEAL SUCTION FOR MINUTE AMOUNTS OF SCATTERED YELLOW SECRETIONS INSUFFICIENT FOR VAP SAMPLE RP TO ENDORSE TO FOLLOWING FIRE CONTROL ASSISTANT
--- NOTE | 2017-11-05 20:15 | NUR ---
ORAL CARE PROVIDED, POSITION CHANGED FOR OFF LOAD PRESSURE.
[2017-11-05 20:29] LABS: APPEARANCE,URINE CLOUDY (CLEAR); BILIRUBIN,URINE NEGATIVE (NEGATIVE); BLOOD, URINE 3+ (NEGATIVE); COLOR,URINE YELLOW (YELLOW); LEUKOCYTE ESTERASE ,URINE NEGATIVE (NEGATIVE); NITRITE, URINE NEGATIVE (NEGATIVE); UGLUCOSE NEGATIVE (NEGATIVE)
[2017-11-05] MEDS ORDERED: FLUCONAZOLE 100 MG/NS PREMIX 50 ML IV SCH (21:00)
[2017-11-05] MEDS: LORazepam 0.5 MG TAB PO SCH (21:00)
[2017-11-05] MEDS: lamoTRIgine 25 MG TAB PO SCH (21:00)
--- NOTE | 2017-11-05 21:00 | NUR ---
HOLD SCHEDULED PO MEDICATION DUE TO PT NPO STATUS AND S/P SURGERY.
[2017-11-05] MEDS: MEROPENEM 500 MG in NACL 0.9% 50 ML IV SCH (21:14)
[2017-11-05 21:54] LABS: ANION GAP 21.1 (8-16); CREATININE 2.2 mg/dL (0.7-1.3); POTASSIUM 4.1 mmol/L (3.5-5.1)
--- NOTE | 2017-11-05 22:00 | NUR ---
PT IS STILL LETHARGIC, NO S/S OF DISTRESS, VSS, FLACC 0. POSITION CHANGED FOR OFF LOAD PRESSURE.
[2017-11-05 22:15] LABS: CORRECTED WHITE BLOOD COUNT 6.1 K/uL (4.5-11.0)
[2017-11-05 22:16] LABS: LYMPHOCYTES % (MANUAL) 9 % (20-46); METAMYELOCYTES % 18 % (0-0); MONOCYTES % (MANUAL) 1 % (5-12); MYELOCYTES % 16 % (0-0)
[2017-11-05] MEDS: HYDROmorphone PFS 2 MG/ML SYR IVP PRN (23:20)
[2017-11-06] VITALS (99 sets, daily range): BP systolic 78–141; BP diastolic 32–117
--- NOTE | 2017-11-06 | NUR ---
NO CHANGE OF CONDITION AT THIS TIME, VSS, ORAL CARE PROVIDED, POSITION CHANGED FOR OFF LOAD PRESSURE.
[2017-11-06] MEDS ORDERED: NOREPINEPHRINE 4 MG/4 ML VIAL IV ONE ×2 (00:41→23:17)
[2017-11-06] MEDS: NOREPINEPHRINE 8 MG in DEXTROSE 5% 250 ML IV PRN ×3 (00:50→18:20)
--- NOTE | 2017-11-06 01:00 | NUR ---
DR. MAURICIO CAME IN TO SEE PT AT BEDSIDE, NO NEW ORDER AT THIS TIME.
[2017-11-06] MEDS: NACL 0.9% IRR 250 ML BOTTLE IR SCH ×2 (01:44→13:00)
--- NOTE | 2017-11-06 02:00 | NUR ---
NO CHANGE OF CONDITION AT THIS TIME, POSITION CHANGED FOR OFF LOAD PRESSURE. VSS
--- NOTE | 2017-11-06 02:30 | NUR ---
SKIN RE-ASSESSMENT NOT DONE, AT BED SIDE PERFORMING PROCEDURES. Addendum: 11/06/17 at 1510 by Desmond Miner RN (Grace) DOCUMENTED INCORRECT TIME 0235, CORRECT DOCUMENTATION WAS [id number].
--- NOTE | 2017-11-06 04:00 | NUR ---
AM CARE AND WALLIS CARE PROVIDED, ORAL CARE PROVIDED, PT TOLERATED WELL. POSITION CHANGED FOR OFF LOAD PRESSURE.
[2017-11-06 04:27] LABS: RBC,URINE 11-20 (MOD) /HPF (0-5); URINE AMORPHOUS URATE 4+ /HPF (None Seen); WBC,URINE 0-5 (RARE) /HPF (0-5)
[2017-11-06] MEDS: HYDROmorphone PFS 2 MG/ML SYR IVP PRN (04:27)
[2017-11-06] MEDS: METHADONE 10 MG TAB PO SCH ×3 (04:28→20:20)
[2017-11-06] MEDS: PHENYLEPHRINE 40 MG in NACL 0.9% 250 ML IV PRN ×4 (04:28→22:23)
[2017-11-06 05:55] LABS: CHOL/HDL RATIO 2.9 (1-4.5)
[2017-11-06 06:00] LABS: ALBUMIN 1.1 g/dL (3.4-5.0); ANION GAP 22.3 (8-16); CARBON DIOXIDE 14.8 mmol/L (21-32); CREATININE 2.4 mg/dL (0.7-1.3); POTASSIUM 4.1 mmol/L (3.5-5.1); TOTAL BILIRUBIN 0.8 mg/dL (0.0-1.0)
--- NOTE | 2017-11-06 06:00 | NUR ---
NO CHANGE OF CONDITION AT THIS TIME, VSS, POSITION CHANGED FOR OFF LAOD PRESSURE.
[2017-11-06 06:04] LABS: MAGNESIUM 1.7 mg/dL (1.8-2.4)
[2017-11-06] MEDS: SODIUM BICARBONATE 8.4% 100 MEQ in NACL 0.9% 1,000 ML IV SCH (06:45)
[2017-11-06 06:55] LABS: HEMOGLOBIN 7.8 g/dL (12.0-18.0); RED BLOOD CELL COUNT(AUTO) 2.48 MIL/uL (4.20-6.10); WHITE BLOOD COUNT (AUTO) 10.2 K/uL (4.8-10.8)
[2017-11-06 06:56] LABS: HEMATOCRIT 22.9 % (36-52); MEAN CORPUSCULAR HEMOGLOBIN 32 pg (27-31); MEAN CORPUSCULAR HGB CONC 34 g/dL (33-37); MEAN CORPUSCULAR VOLUME 93 fL (80-94); PLATELET COUNT (AUTO) 30 K/uL (140-450); RED CELL DISTRIBUTION WIDTH 14.6 % (11.6-13.7)
[2017-11-06 06:57] LABS: CORRECTED WHITE BLOOD COUNT 8.5 K/uL (4.5-11.0); EOSINOPHILS % (MANUAL) 2 % (0-4); LYMPHOCYTES % (MANUAL) 13 % (20-46); MONOCYTES % (MANUAL) 10 % (5-12)
--- NOTE | 2017-11-06 07:20 | NUR ---
REPORT GIVEN TO DICK HERNANDEZ AT BEDSIDE FOR CONTINUE OF CARE, PT IS IN STABLE CONDITION AT THIS TIME.
--- NOTE | 2017-11-06 07:30 | NUR ---
RECEIVED REPORT FORM NURSE MARY ANN AT BEDSIDE, PT LETHARGIC, AROUSABLE TO PAIN BEDSIDE MONITOR SHOWS ST. ETT TO VENT WITH SETTING OF AC/PC FIO2 80, NGT TO RIGHT NARES, NPO AT THIS TIME.SOFT ABDOMEN WITH HYPOACTIVE BOWEL SOUNDS, WALLIS CATHETER IN PLACE WITH NO URINE NOTED, SKIN IS COOL TO TOUCH, PT ON WARM BLANKET MACHINE.SKIN NON INTACT( SEE WOUND ASSESSMENT) SURGICAL WOUND SITE TO ABDOMEN, COVERED WITH DRESSING, TWO MANDA DRAIN NOTED WITH SEROSANGUINEOUS DRAINAGE. GENERALIZED +2 PITTING EDEMA NOTED, SEVERE WEAKNESS TO ALL EXTREMITIES, PICC LINE TO RIGHT UPPER ARM, RUNNING LEVOPHED AT 15MCG/MIN, AND EVONNE AT 100MCG/MIN. A-LINE TO RIGHT FEMORAL, CENTRAL LINE TO LEFT FEMORAL, RUNNING BICAB AT 150ML/HR. TEMP 97.0 HOB ELEVATED 30 DEGREES, SAFETY PRECAUTION IN PLACE, WILL CONTINUE TO MONITOR.
[2017-11-06] MEDS: ALBUTEROL SULFATE/IPRATROPIU 3 ML SOL IH SCH ×4 (07:34→18:51)
--- NOTE | 2017-11-06 07:42 | NUR ---
RECEIVED INTUBATED PT WITH 7.5 ETT SECURED @23 TEETH/GUMS ON VENT. SETTINGS PC Pinsp 15, R 12, PEEP 5 AND FIO2 TITRATED TO 60%. PT WAKES UP WHEN SPOKEN TO AND IS NOT SOB/RESPIRATORY DISTRESS. VENT IS PLUGGED INTO RED OUTLET WITH ALARMS ON AND FUNCTIONING. THERE IS NO BITING OR KINKING OF ETT. WILL CONTINUE TO MONITOR.
--- NOTE | 2017-11-06 08:08 | NUR ---
CALLED IN, UPDATED PT'S CONDITION. NOTIFIED DR. SERRANO MANDA DRAINAGE COLOR AND AMOUNT. LAB REPORT GIVEN, PER DR. SERRANO, GIVE PT RED BLOOD CELLS TRANSFUSION , WILL CARRY OUT.
--- NOTE | 2017-11-06 08:20 | NUR ---
STARTED THE FIRST UNIT OF RED BLOOD CELLS, VITALS TAKEN, NO FEVER.
[2017-11-06] MEDS: ASPIRIN 81 MG TAB.CHEW PO SCH (09:00)
[2017-11-06] MEDS: ATORVASTATIN 20 MG TAB PO SCH (09:00)
[2017-11-06] MEDS: HYDROXYCHLOROQUINE 200 MG TAB PO SCH (09:00)
[2017-11-06] MEDS: LACTOBACILLUS RHAMNOSUS GG 1 EACH CAP PO SCH (09:00)
[2017-11-06] MEDS: clonazePAM 0.5 MG TAB PO SCH ×3 (09:00→17:00)
[2017-11-06] MEDS: DOCUSATE SODIUM 100 MG GELCAP PO SCH ×2 (09:00→20:19)
[2017-11-06] MEDS ORDERED: ENOXAPARIN 40 MG/0.4 ML SYR SUBQ SCH (09:00)
[2017-11-06] MEDS: ASCORBIC ACID 500 MG TAB PO SCH (09:00)
[2017-11-06] MEDS: CARVEDILOL 12.5 MG TAB PO SCH ×2 (09:00→20:20)
[2017-11-06] MEDS: LEVOFLOXACIN 750 MG/D5W PREMIX 150 ML IV SCH (10:09)
[2017-11-06] MEDS: PANTOPRAZOLE 40 MG INJ VIAL IVP SCH ×2 (10:22→21:03)
[2017-11-06] MEDS: HYDROCORTISONE NA SUCC 100 MG/2 ML VIAL IV SCH ×2 (10:23→21:03)
[2017-11-06] MEDS: fentaNYL 1 MG in NACL 0.9% 80 ML IV PRN (10:40)
--- NOTE | 2017-11-06 11:00 | NUR ---
THE FIRST BAG OF RED BLOOD CELLS DONE, NO REACTION NOTED.
[2017-11-06] MEDS ORDERED: CALCIUM GLUCONATE 10% 2,000 MG in NACL 0.9% 50 ML IV SCH (11:01)
--- NOTE | 2017-11-06 11:30 | NUR ---
STARTED THE SECOND BAG OF RED BLOOD CELLS TRANSFUSION. BEFORE TRANSFUSION, ASKED CHARGE NURSE AGUSTO SHOULD I START PLATELET TRANSFUSION FIRST OR CONTINUE THE SECOND UNIT, PER CHARGE NURSE AGUSTO GIVE PLATELET TRANSFUSION AFTER THE SECOND UNIT OF RED BLOOD CELLS.
[2017-11-06] MEDS ORDERED: FUROSEMIDE 100 MG/10 ML VIAL IV SCH (11:45)
[2017-11-06] MEDS: MEROPENEM 500 MG in NACL 0.9% 50 ML IV SCH ×2 (11:56→21:03)
[2017-11-06] MEDS ORDERED: VANCOMYCIN 1GM/DEXT 5% PREMIX 200 ML IV SCH (12:00)
--- NOTE | 2017-11-06 12:03 | NUR ---
IN TO SEE PT, TALKED TO FAMILY REGARDING THE BENEFITS AND RISKS OF DIALYSIS, DR. WAGONER ALSO AWARE IVF BICAR DO NOT GIVE YET DUE TO PT HAS OTHER MEDS INFUSION AT THIS TIME. PER DR. WAGONER IT IS GOOD TO HOLD IVF BICAR AT THIS TIME.
--- NOTE | 2017-11-06 12:48 | NUR ---
STATES HE WILL CANCEL ABG ORDERS FOR 1200 AND 1600 SCHEDULED TIMES. NURSE AGUSTO TREVINO.
--- NOTE | 2017-11-06 13:29 | NUR ---
ULTRASOUND BEDSIDE FOR PROCEDURE. PT TOLERATING VENT SETTINGS WELL WITH NO SIGNS/SYMPTOMS OF RESPIRATORY DISTRESS.
--- NOTE | 2017-11-06 13:38 | NUR ---
DR. NUÑEZ STARTS TO INSERT MONIKA CATHETER FOR DIALYSIS, TIME OUT DONE.
--- NOTE | 2017-11-06 14:34 | NUR ---
MONIKA CATH INSERTION DONE
--- NOTE | 2017-11-06 14:47 | NUR ---
HEPARIN WAS GIVEN BY DR. NUÑEZ FOR MONIKA CATH INSERTION.
--- NOTE | 2017-11-06 14:55 | NUR ---
STARTED PT ON PLATELET TRANSFUSION.
--- NOTE | 2017-11-06 15:22 | NUR ---
CALLED [facility] AND SPOKE WITH JULISA AND GAVE VERBAL REPORT. HE ASKED THAT OUR PHYSICIAN CALL HIS FINISHED CIGAR MAKER, DR. FAITH MAURICIO AT [phone]. I INFORMED DR. TAYLOR. FAXED CONCURRENT REVIEW TO [facility] [phone] PHONE [phone] JULISA FAXED CONCURRENT REVIEW TO [facility] [phone] PHONE [phone].
--- NOTE | 2017-11-06 15:40 | NUR ---
CALLED [phone], DR. SHAFFER ANSWERED. NOTIFIED HER PT BP DROPS TO 89/46,HR 120.
[2017-11-06] MEDS: SODIUM BICARBONATE 8.4% 150 MEQ in DEXTROSE 5% 1,000 ML IV SCH (16:00)
[2017-11-06] MEDS ORDERED: VASOPRESSIN 20 UNITS in NACL 0.9% 250 ML IV PRN (16:30)
--- NOTE | 2017-11-06 16:45 | NUR ---
CALLED DR. TAYLOR. NOTIFIED HIM PT BP IS 125/63, DOES HE STILL WANT ME TO GIVE VASOPRESSIN DRIP, PER DR. TAYLOR. HOLD THE DRIP.
--- NOTE | 2017-11-06 17:29 | NUR ---
CALLED SURI CANALES DIALYSIS NURSE AGAIN. TOLD HER PT HAS DIALYSIS STAT, PER SURI CANALES, THE DIALYSIS NURSE WILL NOT BE AVAILABLE UNTIL 2099.
--- NOTE | 2017-11-06 17:30 | NUR ---
PLATELET TRANSFUSION COMPLETED, NO REACTION NOTED.
--- NOTE | 2017-11-06 17:45 | NUR ---
PT REMAINS ON DOCUMENTED SETTINGS NO CHANGES TO VENT. PT IS HAVING PROCEDURE DONE AT THIS TIME. PT IS NOT SOB AND NOT IN RESPIRATORY DISTRESS. ETT REMAINS SECURE WITH A PATENT AIRWAY. VENT ALARMS REMAIN ON AND FUNCTIONING.
[2017-11-06] MEDS: CALCIUM ACETATE 667 MG TAB NG SCH (17:52)
--- NOTE | 2017-11-06 18:20 | NUR ---
250 MLS OF THICK GREENISH SECRETION NOTED BEFORE GIVING PHOSLO, CALLED DR. TAYLOR, PER , HOLD NG TUBE MEDS. SAW THE SECRETION, SHE ALSO SAID HOLD MEDS.
[2017-11-06] MEDS: BLOOD GLUCOSE MONITORING 1 DEV DEV MC SCH ×2 (18:30→23:48)
[2017-11-06] MEDS ORDERED: ALBUMIN HUMAN 25% 100 ML IV SCH (19:02)
[2017-11-06 19:05] LABS: HEMOGLOBIN 9.8 g/dL (12.0-18.0); MEAN CORPUSCULAR HEMOGLOBIN 31 pg (27-31); MEAN CORPUSCULAR HGB CONC 34 g/dL (33-37); MEAN CORPUSCULAR VOLUME 91 fL (80-94); PLATELET COUNT (AUTO) 90 K/uL (140-450); RED CELL DISTRIBUTION WIDTH 15.3 % (11.6-13.7); WHITE BLOOD COUNT (AUTO) 21.6 K/uL (4.8-10.8)
--- NOTE | 2017-11-06 19:20 | NUR ---
REPORT GIVEN TO MARY ANN JENNINGS.
--- NOTE | 2017-11-06 19:30 | NUR ---
RECEIVED REPORT FORM MARY RN AT BEDSIDE, PT IS SEDATED, RASS -4, VSS, FLACC 0, ETT TO VENT WITH SETTING OF AC/PC FIO2 50, O2 SAT 100%, CLEAR LUNG SOUNDS, ST ON DIGITAL COMPOSER, SOFT ABDOMEN WITH HYPOACTIVE BOWEL SOUNDS, NGT TO RIGHT NARES TO LWS, NPO AT THIS TIME, POSITIVE PLACEMENT, WALLIS CATHETER IN PLACE WITH CLEAR YELLOW URINE NOTED, SKIN IS WARM AND DRY TO TOUCH, MULTIPLE SKIN TEARS NOTED, SURGICAL WOUND SITE TO ABDOMEN, COVERED WITH DRESSING, TWO MANDA DRAIN NOTED WITH SEROSANGUINEOUS DRAINAGE. GENERALIZED +2 PITTING EDEMA AND WEEPING NOTED, SEVERE WEAKNESS TO ALL EXTREMITIES, QUTION CATHETER TO RIGHT IJ, PICC LINE TO RIGHT UPPER ARM, RUNNING LEVOPHED AT 15MCG/MIN, AND EVONNE AT 150MCG/MIN. A-LINE TO RIGHT FEMORAL, 126/73, CENTRAL LINE TO LEFT FEMORAL, TLC, RUNNING BICAB AT 75 ML/HR, FENTANYL AT 38 MG/HR. HOB ELEVATED 30 DEGREES, SAFETY PRECAUTION IN PLACE, WILL CONTINUE TO MONITOR.
[2017-11-06 19:41] LABS: PROTHROMBIN TIME 17.8 secs (10.8-13.4)
[2017-11-06] MEDS: DEXTROSE 50% 600 ML, AMINO ACIDS 8.5% 600 ML IV SCH ×2 (20:18)
[2017-11-06 20:19] LABS: CORRECTED WHITE BLOOD COUNT 11.5 K/uL (4.5-11.0)
[2017-11-06] MEDS: LORazepam 0.5 MG TAB PO SCH (20:19)
[2017-11-06 20:20] LABS: LYMPHOCYTES % (MANUAL) 3 % (20-46)
[2017-11-06] MEDS: lamoTRIgine 25 MG TAB PO SCH (20:20)
--- NOTE | 2017-11-06 20:30 | NUR ---
HD NURSE CAME, COULD NOT DO HD AT THIS TIME DUE TO THE NEW RIGHT BILLY FRANK NOT WORKING, DR. WAGONER AND DR. RENEE MADE AWARE.
--- NOTE | 2017-11-06 21:50 | NUR ---
DR. MAURICIO CAME IN TO SEE PT AT BEDSIDE, NO NEW ORDER AT THIS TIME.
--- NOTE | 2017-11-06 22:00 | NUR ---
HEMODIALYSIS NOT DONE TONIGHT, PER VOICE PATHOLOGIST STEPHAN, MONIKA CATH ON RIJ IS NOT WORKING. DR. WAGONER (TECHNICAL AGRONOMIST) INFORMED ABOUT THE SITUATION, MD SPOKE WITH DR. RENEE (RESIDENT) TO CHECK THE MONIKA CATH. WHEN DR. RENEE WAS HERE IN ICU, DR. WAGONER CALLED BACK AND INFORMED DR. RENEE THAT HE SPOKE WITH DR. SERRANO (SURGEON) TO PLACE A NEW MONIKA CATH IN AM AND CALL DIALYSIS SOON THE MONIKA CATH IS INSERTED. PATIENT'S FAMILY KRIS (COUSIN) HERE IN THE UNIT WITH HER , NOTIFIED AND UPDATED ABOUT PATIENT'S PLAN OF CARE.
[2017-11-06 22:43] LABS: ANION GAP 18.4 (8-16); CARBON DIOXIDE 19.6 mmol/L (21-32); CREATININE 2.7 mg/dL (0.7-1.3)
[2017-11-06] MEDS: NOREPINEPHRINE 16 MG in DEXTROSE 5% 250 ML IV PRN (23:25)
[2017-11-07] VITALS (103 sets, daily range): BP systolic 77–166; BP diastolic 51–88
--- NOTE | 2017-11-07 | NUR ---
PT IS ASLEEP IN BED, NO CHANGE OF CONDITION AT THIS TIME, ORAL CARE PROVIDED, POSITION CHANGED FOR OFF LOAD PRESSURE. VSS.
[2017-11-07] MEDS: SODIUM BICARBONATE 8.4% 150 MEQ in DEXTROSE 5% 1,000 ML IV SCH ×2 (00:20→06:24)
--- NOTE | 2017-11-07 01:00 | NUR ---
WOUND CARE PROVIDED, DRESSING CHANGED FOR ABDOMEN SURGICAL SITE. DR. SERRANO MADE AWARE.
[2017-11-07] MEDS: NACL 0.9% IRR 250 ML BOTTLE IR SCH ×2 (01:19→13:00)
--- NOTE | 2017-11-07 02:00 | NUR ---
NO CHANGE OF CONDITION AT THIS TIME, VSS, POSITION CHANGED FOR OFF LOAD PRESSURE.
--- NOTE | 2017-11-07 04:00 | NUR ---
AM CARE AND F/C CARE PROVIDED, ORAL CARE PROVIDED, POSITION CHANGED FOR OFF LOAD PRESSURE.
[2017-11-07] MEDS: fentaNYL 1 MG in NACL 0.9% 80 ML IV PRN (04:41)
[2017-11-07] MEDS: METHADONE 10 MG TAB PO SCH ×3 (05:00→21:00)
--- NOTE | 2017-11-07 05:23 | NUR ---
PATIENT'S FAMILY KRIS (COUSIN) CAME IN WITH HER AT 0505, KRIS LOOKED UPSET AND ASKING WHAT TIME IS DR. SERRANO COMING. CALLED DR. RENEE (RESIDENT) TO CLARIFY WHAT TIME IS DR. SERRANO COMING, DR. RENEE STATED THAT PER HER CONVERSATION WITH DR. WAGONER, DR SERRANO WILL BE HERE BETWEEN [phone]. PATIENT'S COUSIN KRIS INFORMED AND WANTED TO TALK TO DR. RENEE.
--- NOTE | 2017-11-07 05:45 | NUR ---
DR. SERRANO PERFORMED MONIKA CATHETER INSERTION AT BEDSIDE, HEPARIN LOCK USED DURING THE PROCEDURE. X-RAY DONE AFTER THE PROCEDURE, AND DR. SERRANO CONFIRMED THE PLACEMENT AND OK TO INFORMED THE HD NURSE TO COME.
[2017-11-07 06:09] LABS: MAGNESIUM 1.6 mg/dL (1.8-2.4); PHOSPHORUS 5.4 mg/dL (2.5-4.9)
--- NOTE | 2017-11-07 06:10 | NUR ---
Lesvia Rai ACUTE DIALYSIS CONTACTED, INFORMED MCCORDJULIO CESAR CANALES TO COME FOR THE HD.
[2017-11-07 06:19] LABS: HEMATOCRIT 23.7 % (36-52); HEMOGLOBIN 8.1 g/dL (12.0-18.0); MEAN CORPUSCULAR HEMOGLOBIN 31 pg (27-31); MEAN CORPUSCULAR HGB CONC 34 g/dL (33-37); MEAN CORPUSCULAR VOLUME 90 fL (80-94); RED BLOOD CELL COUNT(AUTO) 2.62 MIL/uL (4.20-6.10); RED CELL DISTRIBUTION WIDTH 15.6 % (11.6-13.7); WHITE BLOOD COUNT (AUTO) 26.7 K/uL (4.8-10.8)
[2017-11-07] MEDS: BLOOD GLUCOSE MONITORING 1 DEV DEV MC SCH ×3 (06:23→17:22)
[2017-11-07] MEDS: INSULIN LISPRO SLIDING SCALE 100 UNITS/ML VIAL SUBQ PRN ×3 (06:25→17:23)
--- NOTE | 2017-11-07 06:45 | NUR ---
DR. WAGONER CALLED AND GAVE ORDER, WILL CARRY OUT THE NEW ORDER.
[2017-11-07 07:00] LABS: PLATELET COUNT (AUTO) 60 K/uL (140-450)
[2017-11-07 07:01] LABS: CORRECTED WHITE BLOOD COUNT 19.8 K/uL (4.5-11.0)
[2017-11-07 07:02] LABS: LYMPHOCYTES % (MANUAL) 11 % (20-46); MONOCYTES % (MANUAL) 3 % (5-12)
[2017-11-07] MEDS: ALBUTEROL SULFATE/IPRATROPIU 3 ML SOL IH SCH ×4 (07:07→19:30)
--- NOTE | 2017-11-07 07:15 | NUR ---
RECEIVED INTUBATED PT WITH 7.5 ETT SECURED @23 TEETH/GUMS ON VENT. SETTINGS PC Pinsp 15, R 12, PEEP 5 AND FIO2 TITRATED TO 50%. PT WAKES UP WHEN SPOKEN TO AND IS NOT SOB/RESPIRATORY DISTRESS. VENT IS PLUGGED INTO RED OUTLET WITH ALARMS ON AND FUNCTIONING. THERE IS NO BITING OR KINKING OF ETT. WILL CONTINUE TO MONITOR.
--- NOTE | 2017-11-07 07:19 | NUR ---
REPORT GIVEN TO DICK ROWLAND AT BEDSIDE FOR CONTINUE OF CARE, PT IS IN STABLE CONDITION AT THIS TIME.
--- NOTE | 2017-11-07 07:19 | NUR ---
RECEIVED REPORT FROM MARY ANN AUTOMATION CONTROL INTEGRATOR RN. PATIENT IS ALERT AND ORIENTED X2, ABLE TO RESPOND TO SIMPLE QUESTIONS BY NODDING HEAD. ETT TO VENT, AC/PC MODE, FIO2 50%, PEEP 5, RATE 12. LEFT LUNG SOUNDS, CLEAR. RIGHT LUNG SOUNDS CRACKLES. HEART SOUNDS 1&2 HEARD. PATIENT HAS NG TUBE TO RIGHT NARES TO LOW INTERMITTENT SUCTION. PATIENT HAS MULTIPLE SKIN TEARS, PATIENT HAS GENERALIZED EDEMA, WEEPING TO BILATERAL ARMS. SKIN WARM TO TOUCH WNL, TOE NAILS WNL, +3 EDEMA, NO HAIR GROWTH, +1 BILATERAL PEDAL PULSES. WALLIS CATH IN PLACE TO CLEAR YELLOW URINE IN SMALL AMOUNT. MIDLINE ABDOMEN SURGICAL DRESSING DRY AND INTACT WITH TWO MANDA DRAINS. RIGHT IJ MONIKA CATH IN PLACE, DRESSING DRY AND INTACT, HEMODIALYSIS ONGOING. RIGHT FEMORAL CENTRAL LINE, PATENT AND INTACT. CALL LIGHT WITHIN REACH, NO SIGNS OF DISTRESS. BED IN LOWEST POSSIBLE POSITION. WILL CONTINUE TO MONITOR PATIENT.
[2017-11-07] MEDS: CALCIUM ACETATE 667 MG TAB NG SCH ×3 (08:00→17:00)
--- NOTE | 2017-11-07 08:02 | NUR ---
PHYSICIAN GIVEN ABG RESULTS, PHYSICIAN STATES TO DRAW ABG POST DIALYSIS.
[2017-11-07] MEDS: PHENYLEPHRINE 40 MG in NACL 0.9% 250 ML IV PRN (08:08)
[2017-11-07] MEDS: HYDROCORTISONE NA SUCC 100 MG/2 ML VIAL IV SCH ×2 (08:22→21:24)
[2017-11-07] MEDS: PANTOPRAZOLE 40 MG INJ VIAL IVP SCH ×2 (08:22→21:24)
[2017-11-07] MEDS ORDERED: ALBUMIN HUMAN 25% 100 ML IV ONE ×2 (08:31→08:35)
[2017-11-07] MEDS: MEROPENEM 500 MG in NACL 0.9% 50 ML IV SCH ×2 (08:37→21:24)
--- NOTE | 2017-11-07 08:45 | NUR ---
ABG RESULTS GIVEN TO . PHYSICIAN REQUESTS NEW VENT SETTINGS PC Pinsp 12, R 12, Tinsp 1.0, PEEP 5 AND FIO2 40%.
[2017-11-07] MEDS: FERROUS GLUCONATE 324 MG TAB PO SCH (09:00)
[2017-11-07] MEDS: CARVEDILOL 12.5 MG TAB PO SCH ×2 (09:00→21:00)
[2017-11-07] MEDS: DOCUSATE SODIUM 100 MG GELCAP PO SCH ×2 (09:00→21:00)
[2017-11-07] MEDS: HYDROXYCHLOROQUINE 200 MG TAB PO SCH (09:00)
[2017-11-07] MEDS ORDERED: ALBUMIN HUMAN 25% 100 ML IV SCH (09:00)
[2017-11-07] MEDS: LACTOBACILLUS RHAMNOSUS GG 1 EACH CAP PO SCH (09:00)
[2017-11-07] MEDS: ASCORBIC ACID 500 MG TAB PO SCH (09:00)
[2017-11-07] MEDS: clonazePAM 0.5 MG TAB PO SCH ×3 (09:00→17:00)
[2017-11-07] MEDS: ATORVASTATIN 20 MG TAB PO SCH (09:00)
--- NOTE | 2017-11-07 09:25 | NUR ---
PT SUCTIONED OBTAINED VERY SMALL AMOUNT OF THIN WHITE/CLEAR SECRETIONS. AIRWAY IS PATENT WITH ETT REMAINING SECURE WITH ANCHOR FAST.
[2017-11-07 09:44] LABS: CARBON DIOXIDE 17.9 mmol/L (21-32); CREATININE 2.8 mg/dL (0.7-1.3); POTASSIUM 3.9 mmol/L (3.5-5.1)
--- NOTE | 2017-11-07 09:55 | NUR ---
RESIDENT PHYSICIAN MADE AWARE OF CRITICAL LAB VALUES, CA 5.9 AND BUN 80
--- NOTE | 2017-11-07 09:58 | NUR ---
DR. WAGONER CALLED TO CHECK ON PATIENT, MADE AWARE OF BMP AND ABG RESULTS, NEW ORDERS TO DC IV BICARB. ORDERS TRANSCRIBED AND CARRIED OUT.
--- NOTE | 2017-11-07 10:14 | NUR ---
HEMODIALYSIS STILL ONGOING, VS STABLE.
[2017-11-07] MEDS ORDERED: MAG SULF 2000 MG/WATER PREMIX 50 ML IV SCH (10:30)
--- NOTE | 2017-11-07 10:40 | NUR ---
HEMODIALYSIS DONE. RECEIVED REPORT FROM TAXONOMIST, TOOK OUT 1000 ML. VS STABLE. PATIENT TOLERATED PROCEDURE WELL.
--- NOTE | 2017-11-07 10:55 | NUR ---
IN, SEEN AND EXAMINED PATIENT. WILL FOLLOW UP WITH ORDERS.
--- NOTE | 2017-11-07 10:55 | NUR ---
VENT SETTING CHANGED TO AC MODE BY RT.
--- NOTE | 2017-11-07 10:56 | NUR ---
PRESENT TO ASSESS PT. NEW VENT ORDERS AND PT PLACED ON AC 12, VT 500, PEEP 5 AND FIO2 40%.
--- NOTE | 2017-11-07 13:07 | NUR ---
PATIENT IS RESTING QUIETLY AT THIS TIME, VS STABLE.
--- NOTE | 2017-11-07 13:08 | NUR ---
CAR DELIVERER AT BEDSIDE.
--- NOTE | 2017-11-07 13:10 | NUR ---
PATIENT HAD LARGE AMOUNT OF BLACK PASTY STOOLS, CLEANED AND REPOSITIONED. PATIENT TOLERATED WELL.
--- NOTE | 2017-11-07 14:10 | NUR ---
PATIENT'S FAMILY AT BEDSIDE, UPDATED ON PATIENT'S CONDITION.
--- NOTE | 2017-11-07 14:38 | NUR ---
LEFT FEMORAL CENTRAL LINE DC, ORDERED. CATHETER TIP INTACT. NO BLEEDING NOTED. DRESSING APPLIED.
[2017-11-07 15:30] LABS: BASOPHILS # (AUTO) 0.2 K/uL (0.00-0.22); BASOPHILS % (AUTO) 0.8 % (0.0-2.0); EOSINOPHILS % (AUTO) 0.1 % (0.0-4.0); LYMPHOCYTES # (AUTO) 1.5 K/uL (2.0-11.5); LYMPHOCYTES % (AUTO) 6.4 % (20.5-51.1); MEAN CORPUSCULAR HEMOGLOBIN 32 pg (27-31); MEAN CORPUSCULAR HGB CONC 35 g/dL (33-37); MEAN CORPUSCULAR VOLUME 91 fL (80-94); MONOCYTES # (AUTO) 0.1 K/uL (0.8-1.0); MONOCYTES % (AUTO) 0.3 % (1.7-9.3); NEUTROPHILS # (AUTO) 21.4 K/uL (1.8-7.7); NEUTROPHILS % (AUTO) 92.4 % (42.2-75.2); RED BLOOD CELL COUNT(AUTO) 1.91 MIL/uL (4.20-6.10); RED CELL DISTRIBUTION WIDTH 15.6 % (11.6-13.7); WHITE BLOOD COUNT (AUTO) 23.2 K/uL (4.8-10.8)
[2017-11-07 15:33] LABS: HEMOGLOBIN 6.1 g/dL (12.0-18.0)
[2017-11-07 15:34] LABS: HEMATOCRIT 17.4 % (36-52); PLATELET COUNT (AUTO) 15 K/uL (140-450)
--- NOTE | 2017-11-07 15:48 | NUR ---
RESIDENT PHYSICIAN DR. KIM MADE AWARE OF H/H LEVELS.
--- NOTE | 2017-11-07 16:05 | NUR ---
AT BEDSIDE, UPDATED ON PATIENT'S CONDITION.
--- NOTE | 2017-11-07 16:05 | NUR ---
PATIENT'S LANA CRAFT IS AWARE THAT COUSIN KRIS BRISENO SIGNED CONSENTS FOR DIALYSIS AND MONIKA CATHETER PLACEMENT. SHE STATED THAT SHE SPOKE WITH DAY SHIFT RN FROM YESTERDAY, AND GIVE AUTHORIZATION FOR HER COUSIN TO SIGN THE CONSENTS.
[2017-11-07] MEDS ORDERED: HYDRAGUARD CREAM TP PRN (16:50)
[2017-11-07 17:12] LABS: BASOPHILS # (AUTO) 0.1 K/uL (0.00-0.22); BASOPHILS % (AUTO) 0.5 % (0.0-2.0); EOSINOPHILS # (AUTO) 0.2 K/uL (0-0.4); EOSINOPHILS % (AUTO) 0.9 % (0.0-4.0); LYMPHOCYTES # (AUTO) 1.8 K/uL (2.0-11.5); LYMPHOCYTES % (AUTO) 7.4 % (20.5-51.1); MEAN CORPUSCULAR HEMOGLOBIN 31 pg (27-31); MEAN CORPUSCULAR HGB CONC 34 g/dL (33-37); MEAN CORPUSCULAR VOLUME 91 fL (80-94); MONOCYTES # (AUTO) 0.1 K/uL (0.8-1.0); MONOCYTES % (AUTO) 0.4 % (1.7-9.3); NEUTROPHILS % (AUTO) 90.8 % (42.2-75.2); RED BLOOD CELL COUNT(AUTO) 1.88 MIL/uL (4.20-6.10); RED CELL DISTRIBUTION WIDTH 15.5 % (11.6-13.7); WHITE BLOOD COUNT (AUTO) 24.2 K/uL (4.8-10.8)
--- NOTE | 2017-11-07 17:31 | NUR ---
PT REMAINS ON DOCUMENTED SETTINGS NO CHANGES TO VENT. ETT REMAINS SECURE WITH ANCHOR FAST. PT IS NOT SOB/RESPIRATORY DISTRESS. VENT ALARMS REMAIN ON AND FUNCTIONING.
[2017-11-07 17:32] LABS: HEMATOCRIT 17.1 % (36-52); HEMOGLOBIN 5.8 g/dL (12.0-18.0)
[2017-11-07 17:33] LABS: PLATELET COUNT (AUTO) 11 K/uL (140-450)
--- NOTE | 2017-11-07 19:11 | NUR ---
REPORT GIVEN TO NIGHT RN FOR CONTINUITY OF CARE, PATIENT IN STABLE CONDITION.
--- NOTE | 2017-11-07 19:15 | NUR ---
RECEIVED REPORT FORM DICK ROWLAND AT BEDSIDE, PT IS SEDATED, RASS -3, VSS, FLACC 0, ETT TO VENT WITH SETTING OF AC/VC FIO2 40, VT 500, R 12, PEEP 5, CLEAR LUNG SOUNDS, SR ON AIR BRAKE RIGGER, SOFT ABDOMEN WITH HYPOACTIVE BOWEL SOUNDS, NGT TO RIGHT NARES TO LWS, NPO AT THIS TIME, POSITIVE PLACEMENT, WALLIS CATHETER IN PLACE WITH CLEAR YELLOW URINE NOTED, SKIN IS WARM AND DRY TO TOUCH, MULTIPLE SKIN TEARS NOTED, SURGICAL WOUND SITE TO ABDOMEN, COVERED WITH DRESSING, TWO MANDA DRAIN NOTED. GENERALIZED +2 PITTING EDEMA AND WEEPING NOTED, SEVERE WEAKNESS TO ALL EXTREMITIES, MONIKA CATHETER TO RIGHT IJ, RUNNING FENTANYL DRIP AT 38 MG/HR, PICC LINE TO RIGHT UPPER ARM, RUNNING LEVOPHED AT 6MCG/MIN, AND TPN AT 50ML/HR. A-LINE TO RIGHT FEMORAL, 106/60, HOB ELEVATED 30 DEGREES, SAFETY PRECAUTION IN PLACE, WILL CONTINUE TO MONITOR.
--- NOTE | 2017-11-07 20:00 | NUR ---
PT IS RESTING IN BED, NO S/S OF DISTRESS, VSS, ORAL CARE PROVIDED, POSITION CHANGED FOR OFF LOAD PRESSURE.
[2017-11-07] MEDS: DEXTROSE 50% 600 ML, AMINO ACIDS 8.5% 600 ML IV SCH ×2 (20:15)
--- NOTE | 2017-11-07 20:35 | NUR ---
1 UNIT OF PRBC STARTED, VERIFIED WITH 2 RNS, PT IS IN STABLE CONDITION AT THIS TIME, VSS, WILL CONTINUE TO MONITOR.
[2017-11-07] MEDS: lamoTRIgine 25 MG TAB PO SCH (21:00)
[2017-11-07] MEDS: LORazepam 0.5 MG TAB PO SCH (21:00)
--- NOTE | 2017-11-07 22:00 | NUR ---
NO CHANGE OF CONDITION AT THIS TIME, VSS, POSITION CHANGED FOR OFF LOAD PRESSURE.
--- NOTE | 2017-11-07 22:55 | NUR ---
BLOOD TRANSFUSION COMPLETED AT THIS TIME, NO ADVERSE EFFECTS NOTED. VSS
--- NOTE | 2017-11-07 23:00 | NUR ---
DR. MATA CAME IN TO SEE PT AT BEDSIDE, HD TOMORROW ORDER.
[2017-11-08] VITALS (108 sets, daily range): BP systolic 94–155; BP diastolic 52–84
--- NOTE | 2017-11-08 | NUR ---
NO S/S OF DISTRESS, ORAL CARE PROVIDED, POSITION CHANGED FOR OFF LOAD PRESSURE.
[2017-11-08] MEDS: BLOOD GLUCOSE MONITORING 1 DEV DEV MC SCH ×4 (00:39→17:46)
[2017-11-08 00:48] LABS: HEMATOCRIT 21.3 % (36-52); HEMOGLOBIN 7.5 g/dL (12.0-18.0); MEAN CORPUSCULAR HEMOGLOBIN 32 pg (27-31); MEAN CORPUSCULAR HGB CONC 35 g/dL (33-37); MEAN CORPUSCULAR VOLUME 90 fL (80-94); RED BLOOD CELL COUNT(AUTO) 2.36 MIL/uL (4.20-6.10); RED CELL DISTRIBUTION WIDTH 14.7 % (11.6-13.7); WHITE BLOOD COUNT (AUTO) 24.7 K/uL (4.8-10.8)
[2017-11-08] MEDS: NACL 0.9% IRR 250 ML BOTTLE IR SCH ×2 (01:00→13:02)
--- NOTE | 2017-11-08 02:00 | NUR ---
WOUND CARE PROVIDED, DRESSING CHANGED, PT TOLERATED WELL, POSITION CHANGED FOR OFF LOAD PRESSURE.
[2017-11-08 02:16] LABS: PLATELET COUNT (AUTO) 8 K/uL (140-450)
[2017-11-08 02:17] LABS: CORRECTED WHITE BLOOD COUNT 10.7 K/uL (4.5-11.0)
[2017-11-08 02:19] LABS: LYMPHOCYTES % (MANUAL) 3 % (20-46); MONOCYTES % (MANUAL) 2 % (5-12)
--- NOTE | 2017-11-08 03:15 | NUR ---
LAB CALLED, [facility] IS NOT AVAILABLE AT THIS TIME, NEEDS ORDER AND DELIVER, DR. ELLIOTT MADE AWARE.
--- NOTE | 2017-11-08 04:00 | NUR ---
AM CARE AND F/C CARE PROVIDED, PT HAD A SMALL BLACK COLORED STOOL, JJ CARE PROVIDED, POSITION CHANGED FOR OFF LOAD PRESSURE. VSS.
[2017-11-08] MEDS: METHADONE 10 MG TAB PO SCH ×2 (04:59→13:00)
[2017-11-08 05:53] LABS: HEMATOCRIT 22.4 % (36-52); HEMOGLOBIN 7.5 g/dL (12.0-18.0); MEAN CORPUSCULAR HEMOGLOBIN 30 pg (27-31); MEAN CORPUSCULAR HGB CONC 33 g/dL (33-37); MEAN CORPUSCULAR VOLUME 90 fL (80-94); RED BLOOD CELL COUNT(AUTO) 2.48 MIL/uL (4.20-6.10); RED CELL DISTRIBUTION WIDTH 14.8 % (11.6-13.7); WHITE BLOOD COUNT (AUTO) 27.2 K/uL (4.8-10.8)
--- NOTE | 2017-11-08 06:00 | NUR ---
ACCU CHECK DONE WITH RESULT OF 152MG/DL, 2 UNITS OF HUMALOG GIVEN ORDERED, NO CHANGE OF CONDITION, WILL CONTINUE TO MONITOR.
[2017-11-08] MEDS: INSULIN LISPRO SLIDING SCALE 100 UNITS/ML VIAL SUBQ PRN (06:09)
[2017-11-08 06:50] LABS: ANION GAP 15.9 (8-16); CARBON DIOXIDE 25.2 mmol/L (21-32); POTASSIUM 3.1 mmol/L (3.5-5.1)
[2017-11-08 06:51] LABS: CREATININE 2.3 mg/dL (0.7-1.3); TOTAL BILIRUBIN 2.2 mg/dL (0.0-1.0)
[2017-11-08 06:52] LABS: ALBUMIN 1.8 g/dL (3.4-5.0); MAGNESIUM 1.9 mg/dL (1.8-2.4); PHOSPHORUS 2.7 mg/dL (2.5-4.9)
[2017-11-08 06:59] LABS: PLATELET COUNT (AUTO) 10 K/uL (140-450)
[2017-11-08 07:00] LABS: CORRECTED WHITE BLOOD COUNT 16.2 K/uL (4.5-11.0)
[2017-11-08 07:01] LABS: LYMPHOCYTES % (MANUAL) 5 % (20-46); MONOCYTES % (MANUAL) 6 % (5-12)
[2017-11-08] MEDS: ALBUTEROL SULFATE/IPRATROPIU 3 ML SOL IH SCH ×4 (07:13→19:43)
--- NOTE | 2017-11-08 07:20 | NUR ---
REPORT GIVEN TO DICK ROWLAND AT BEDSIDE FOR CONTINUE OF CARE, PT IS IN STABLE CONDITION AT THIS TIME.
--- NOTE | 2017-11-08 07:20 | NUR ---
RECEIVED FROM MARY ANN JENNINGS FOR CONTINUITY OF CARE. PATIENT IS SEDATED WITH FENTANYL DRIP. RIJ MONIKA CATHETER WITH PIGTAIL, CYNDI PICC LINE AND RIGHT FEMORAL A LINE PATENT AND INTACT. SKIN WARM TO TOUCH WNL, TOENAILS WNL, GENERALIZED EDEMA NOTED, MULTIPLE ECCHYMOSIS TO CHEST, BILATERAL ARMS AND BILATERAL LOWER EXTREMITIES, FINE HAIR GROWTH AND UNABLE TO PALPATE PEDAL PULSES DUE TO EDEMA. FC IN PLACE PATENT AND INTACT TO CLEAR YELLOW URINE. BILATERAL LOWER EXTREMITIES ON. ETT TO VENT. RIGHT NARES NGT TO LOW INTERMITTENT SUCTION. CALL LIGHT WITHIN REACH. BED AT LOWEST POSSIBLE POSITION. WILL CONTINUE TO MONITOR PATIENT.
--- NOTE | 2017-11-08 07:25 | NUR ---
RECEIVED INTUBATED PT W/7.5 ETT SECURED @23 TEETH/GUMS ON VENT. VENTILATOR SETTINGS AC 12, VT 500, PEEP 5 AND FIO2 40%. PT IS ASLEEP AT THIS TIME AND IS NOT SOB OR IN RESPIRATORY DISTRESS. PT SUCTIONED OBTAINED SMALL AMOUNT OF THICK WHITE SECRETIONS, AIRWAY IS PATENT. VENT IS PLUGGED INTO A RED OUTLET WITH ALARMS ON AND FUNCTIONING .WILL CONTINUE TO MONITOR.
[2017-11-08] MEDS: CALCIUM ACETATE 667 MG TAB NG SCH ×3 (08:00→17:00)
--- NOTE | 2017-11-08 08:11 | NUR ---
PAGED REGARDING ABG RESULTS WAITING FOR CALL BACK.
--- NOTE | 2017-11-08 08:16 | NUR ---
ABG RESULTS GIVEN TO PHYSICIAN REQUESTS NEW VENT ORDERS AND ABG SCHEDULED FOR 11/09/17 0800. AC 10, VT 450, PEEP 5 AND FIO2 30%. WILL PLACE PT ON NEW VENT SETTINGS.
[2017-11-08] MEDS ORDERED: KCL 20 MEQ/WATER INJ PREMIX 200 ML IV SCH ×2 (08:25→08:30)
--- NOTE | 2017-11-08 08:35 | NUR ---
PATIENT'S LANA CALLED, UPDATED OF PATIENT'S CONDITION.
[2017-11-08] MEDS ORDERED: POTASSIUM CHLORIDE 40 MEQ, LIDOCAINE 1% 25 MG in NACL 0.9% 250 ML IV ONE (08:56)
[2017-11-08] MEDS ORDERED: LEVOFLOXACIN 750 MG/D5W PREMIX 150 ML IV SCH ×2 (09:00)
[2017-11-08] MEDS: ASCORBIC ACID 500 MG TAB PO SCH (09:00)
[2017-11-08] MEDS: LACTOBACILLUS RHAMNOSUS GG 1 EACH CAP PO SCH (09:00)
[2017-11-08] MEDS ORDERED: VANCOMYCIN 1GM/DEXT 5% PREMIX 200 ML IV SCH (09:00)
[2017-11-08] MEDS: ATORVASTATIN 20 MG TAB PO SCH (09:00)
[2017-11-08] MEDS: DOCUSATE SODIUM 100 MG GELCAP PO SCH ×2 (09:00→20:08)
[2017-11-08] MEDS: HYDROXYCHLOROQUINE 200 MG TAB PO SCH (09:00)
[2017-11-08] MEDS: clonazePAM 0.5 MG TAB PO SCH ×3 (09:00→17:00)
[2017-11-08] MEDS: CARVEDILOL 12.5 MG TAB PO SCH (09:00)
[2017-11-08] MEDS: MEROPENEM 500 MG in NACL 0.9% 50 ML IV SCH ×2 (09:12→20:15)
[2017-11-08] MEDS: HYDROCORTISONE NA SUCC 100 MG/2 ML VIAL IV SCH ×2 (09:13→20:14)
[2017-11-08] MEDS: PANTOPRAZOLE 40 MG INJ VIAL IVP SCH ×2 (09:13→20:14)
[2017-11-08] MEDS: fentaNYL 1 MG in NACL 0.9% 80 ML IV PRN (09:27)
--- NOTE | 2017-11-08 10:10 | NUR ---
DR RICE AND MAR ROUNDING ON PATIENT. FAMILY AT BEDSIDE. DR. RICE GAVE FAMILY UPDATED ON PATIENT'S CONDITION.
--- NOTE | 2017-11-08 11:15 | NUR ---
DR MORALES IN, SEEN AND EXAMINES PATIENT. WILL FOLLOW UP WITH ORDERS.
[2017-11-08 12:24] LABS: HEPATITIS A ANTIBODY IGM Negative (Negative); HEPATITIS B CORE AB TOTAL Negative (Negative); HEPATITIS B SURFACE ANTIBODY Reactive (.); HEPATITIS B SURFACE ANTIGEN Negative (Negative)
[2017-11-08 12:27] LABS: HEMATOCRIT 22.9 % (36-52); HEMOGLOBIN 7.8 g/dL (12.0-18.0); MEAN CORPUSCULAR HEMOGLOBIN 30 pg (27-31); MEAN CORPUSCULAR HGB CONC 34 g/dL (33-37); MEAN CORPUSCULAR VOLUME 90 fL (80-94); RED BLOOD CELL COUNT(AUTO) 2.55 MIL/uL (4.20-6.10); WHITE BLOOD COUNT (AUTO) 27.9 K/uL (4.8-10.8)
[2017-11-08 12:28] LABS: PLATELET COUNT (AUTO) 10 K/uL (140-450); RED CELL DISTRIBUTION WIDTH 15.2 % (11.6-13.7)
[2017-11-08 12:29] LABS: LYMPHOCYTES % (MANUAL) 16 % (20-46); MONOCYTES % (MANUAL) 7 % (5-12)
[2017-11-08 12:30] LABS: CORRECTED WHITE BLOOD COUNT 17.1 K/uL (4.5-11.0)
[2017-11-08 12:36] LABS: PROTHROMBIN TIME 14.9 secs (10.8-13.4)
--- NOTE | 2017-11-08 13:20 | NUR ---
VENT CHECK COMPLETED. PT IS NOT IN RESPIRATORY DISTRESS. NO SUCTIONING REQUIRED AT THIS TIME. WILL CONTINUE TO MONITOR.
--- NOTE | 2017-11-08 14:00 | NUR ---
11/08/17 RD FOLLOW UP COMPLETED PLEASE REFER TO NUTRITION PROGRESS NOTE UNDER CARE ACTIVITY FOR ESTIMATED NUTRITION NEEDS. RD RECOMMENDATIONS: 1.PT TO CONTINUE WITH NPO DIET. 2.WHEN MEDICALLY CLEARED, RESTART MECHANICAL SOFT DIET PER SWALLOW EVEAL EARLIER RECOMMENDATION & MONITOR TOLERANCE. 3.RD TO FOLLOW-UP IN 2-3 DAYS PATIENT IS HIGH RISK. LEONARDA GIFFORD MBA, RD
[2017-11-08] MEDS ORDERED: VANCOMYCIN PER PHARMACY MC PRN ×2 (14:30)
[2017-11-08] MEDS ORDERED: LORazepam 2 MG/ML VIAL IM/IVP PRN (14:30)
--- NOTE | 2017-11-08 14:40 | NUR ---
1 UNIT OF PLATELET PHERESIS GIVEN. NO S/S OF TRANSFUSION REACTION NOTED.
[2017-11-08] MEDS: NOREPINEPHRINE 16 MG in DEXTROSE 5% 250 ML IV PRN (15:20)
--- NOTE | 2017-11-08 15:55 | NUR ---
CHANGED ABDOMINAL DRESSING 3 TIMES, DR. DUNAWAY MADE AWARE.
--- NOTE | 2017-11-08 16:20 | NUR ---
1 UNIT FFP WITH SERIAL NUMBER [id number] STARTED. WILL MONITOR PATIENT FOR ANY S/S OF TRANSFUSION REACTION.
--- NOTE | 2017-11-08 17:35 | NUR ---
1 UNIT PRBC WITH SERIAL NUMBER [id number] STARTED DURING DIALYSIS. WILL MONITOR PATIENT FOR ANY S/S OF BLOOD TRANSFUSION REACTION.
--- NOTE | 2017-11-08 17:40 | NUR ---
PT REMAINS ON DOCUMENTED VENT SETTINGS. PT RECEIVING DIALYSIS AT THIS TIME. PT NOT SOB AND NOT IN RESPIRATORY DISTRESS. ETT REMAINS SECURE WITH A PATENT AIRWAY. VENT ALARMS REMAIN ON AND FUNCTIONING.
--- NOTE | 2017-11-08 18:05 | NUR ---
1 UNIT PRBC GIVEN DURING DIALYSIS. NO S/S OF TRANSFUSION REACTION NOTED.
--- NOTE | 2017-11-08 19:11 | NUR ---
1 UNIT FFP GIVEN. NO S/S OF TRANSFUSION REACTION NOTED.
--- NOTE | 2017-11-08 19:30 | NUR ---
REPORT GIVEN TO NIGHT RN FOR CONTINUITY OF CARE. PATIENT IN STABLE CONDITION.
--- NOTE | 2017-11-08 19:30 | NUR ---
RECEIVED REPORT FROM MORNING RN FOR CONTINUITY OF CARE. VS STABLE AT THIS TIME. AFEBRILE. PT ON FENTANYL DRIP. RASS -3. ETT TO VENT WITH SETTINGS: AC10, FIO2 30, TV 450, AND PEEP 5. LUNG SOUNDS DIMINISHED. NO SIGNS OF DISTRESS NOTED. S1+S2 HEARD. PULSES PALPABLE. SINUS TACHYCARDIA ON MONITOR. PT HAS ARTERIAL LINE. NGT ON RIGHT NARES CONNECTED TO SUCTION. PLACEMENT CHECKED. ABDOMEN ROUND AND SOFT. HYPOACTIVE BOWEL SOUND. DRESSING DRY AND INTACT. PT HAS RIGHT IJ MONIKA CATH, CYNDI PICC LINE, AND RIGHT FEMORAL ARTERIAL LINE; ALL PATENT AND ASYMPTOMATIC. WALLIS CATHETER IN PLACE DRAINING CLEAR AND YELLOW URINE. MANDA DRAIN IN PLACE. CURRENTLY NO OUTPUT NOTED ON DRAINS. PT ON LEVOPHED DRIP. PT HAS TPN RUNNING. HOB 30 DEGREES. ALL SAFETY PRECAUTION IN PLACE. CALL LIGHT WITHIN REACH. WILL CONTINUE TO MONITOR.
[2017-11-08] MEDS: lamoTRIgine 25 MG TAB PO SCH (20:08)
[2017-11-08] MEDS: DEXTROSE 50% 600 ML, AMINO ACIDS 8.5% 600 ML IV SCH ×2 (20:15)
[2017-11-08] MEDS: MICAFUNGIN SODIUM 100 MG in NACL 0.9% 100 ML IV SCH (21:33)
--- NOTE | 2017-11-08 21:50 | NUR ---
DR. MAURICIO AT BEDSIDE TO SEE PT. RECEIVED NEW ORDERS. PER MD ALL LINES NEEDS TO BE REPLACED D/T BLOOD INFECTION.
--- NOTE | 2017-11-08 21:55 | NUR ---
CALLED DR. ELLIOTT TO INFORM REGARDING RECOMMENDATION OF DR. MAURICIO TO REPLACE ALL LINES, PER DR. ELLIOTT SHE WILL BE INSERTING CENTRAL LINE, AND WILL FIND OUT IF ABLE TO INSERT ARTERIAL LINE.
--- NOTE | 2017-11-08 22:08 | NUR ---
DR. MATA AT BEDSIDE TO SEE PT. WILL FOLLOW-UP WITH ANY NEW ORDER.
[2017-11-08 23:27] LABS: HEMATOCRIT 22.7 % (36-52); HEMOGLOBIN 7.7 g/dL (12.0-18.0); MEAN CORPUSCULAR HEMOGLOBIN 32 pg (27-31); MEAN CORPUSCULAR HGB CONC 34 g/dL (33-37); MEAN CORPUSCULAR VOLUME 93 fL (80-94); RED BLOOD CELL COUNT(AUTO) 2.45 MIL/uL (4.20-6.10); RED CELL DISTRIBUTION WIDTH 14.4 % (11.6-13.7); WHITE BLOOD COUNT (AUTO) 18.8 K/uL (4.8-10.8)
[2017-11-08 23:40] LABS: PLATELET COUNT (AUTO) 12 K/uL (140-450)
[2017-11-08 23:43] LABS: CORRECTED WHITE BLOOD COUNT 10.9 K/uL (4.5-11.0); LYMPHOCYTES % (MANUAL) 2 % (20-46); MONOCYTES % (MANUAL) 5 % (5-12)
[2017-11-09] VITALS (71 sets, daily range): BP systolic 78–194; BP diastolic 37–128
--- NOTE | 2017-11-09 | NUR ---
PT TAKEN OFF LEVOPHED. VS STABLE AT THIS TIME. WILL CONTINUE TO MONITOR. CURRENTLY NO CHANGE IN CONDITION.
[2017-11-09] MEDS: NACL 0.9% IRR 250 ML BOTTLE IR SCH ×2 (01:58→13:00)
--- NOTE | 2017-11-09 03:21 | NUR ---
VS STABLE AT THIS TIME. NO CHANGE IN CONDITION. NO SIGNS OF DISTRESS NOTED. PT DOES NOT APPEAR TO BE IN ANY PAIN. ALL SAFETY PRECAUTIONS IN PLACE. WILL CONTINUE TO MONITOR PT.
[2017-11-09 05:05] LABS: HEMATOCRIT 22.2 % (36-52); HEMOGLOBIN 7.6 g/dL (12.0-18.0); MEAN CORPUSCULAR HEMOGLOBIN 31 pg (27-31); MEAN CORPUSCULAR HGB CONC 34 g/dL (33-37); MEAN CORPUSCULAR VOLUME 92 fL (80-94); RED BLOOD CELL COUNT(AUTO) 2.43 MIL/uL (4.20-6.10); RED CELL DISTRIBUTION WIDTH 14.3 % (11.6-13.7); WHITE BLOOD COUNT (AUTO) 18.4 K/uL (4.8-10.8)
[2017-11-09 05:21] LABS: ANION GAP 11.8 (8-16); CARBON DIOXIDE 30.4 mmol/L (21-32); CREATININE 1.9 mg/dL (0.7-1.3); POTASSIUM 3.2 mmol/L (3.5-5.1)
[2017-11-09 05:22] LABS: MAGNESIUM 1.8 mg/dL (1.8-2.4); PHOSPHORUS 2.6 mg/dL (2.5-4.9)
--- NOTE | 2017-11-09 05:28 | NUR ---
PT DOES NOT APPEAR TO BE IN ANY DISTRESS OR ANY PAIN. VS STABLE AT THIS TIME. HOB 30 DEGREES. ALL SAFETY PRECAUTIONS IN PLACE. WILL CONTINUE TO MONITOR.
--- NOTE | 2017-11-09 05:31 | NUR ---
CALLED [facility] REGARDING HEMODIALYSIS ORDER FOR PT. THEY ARE AWARE OF DIALYSIS ORDER FOR TODAY.
[2017-11-09] MEDS ORDERED: KCL 20 MEQ/WATER INJ PREMIX 200 ML IV ONE ×2 (05:50→23:15)
[2017-11-09] MEDS: BLOOD GLUCOSE MONITORING 1 DEV DEV MC SCH ×4 (05:54→18:16)
--- NOTE | 2017-11-09 06:05 | NUR ---
DR. TAYLOR AT BEDSIDE TO SEE PT. UPDATED HIM REGARDING PT CONDITION. WILL FOLLOW-UP WITH ANY NEW ORDER.
[2017-11-09 06:24] LABS: PLATELET COUNT (AUTO) 16 K/uL (140-450)
[2017-11-09 06:26] LABS: CORRECTED WHITE BLOOD COUNT 12.4 K/uL (4.5-11.0); LYMPHOCYTES % (MANUAL) 4 % (20-46); MONOCYTES % (MANUAL) 5 % (5-12)
--- NOTE | 2017-11-09 07:05 | NUR ---
GIVEN REPORT TO MORNING RN FOR CONTINUITY OF CARE. VS STABLE AT THIS TIME.
[2017-11-09] MEDS: ALBUTEROL SULFATE/IPRATROPIU 3 ML SOL IH SCH ×4 (07:17→20:00)
--- NOTE | 2017-11-09 07:28 | NUR ---
RECEIVED INTUBATED PT W/7.5 ETT SECURED @23 TEETH/GUMS ON VENT. VENTILATOR SETTINGS AC 10, VT 450, PEEP 5 AND FIO2 30%. PT IS ASLEEP AT THIS TIME AND IS NOT SOB OR IN RESPIRATORY DISTRESS. PT SUCTIONED OBTAINED SMALL AMOUNT OF THICK WHITE SECRETIONS, AIRWAY IS PATENT. VENT IS PLUGGED INTO A RED OUTLET WITH ALARMS ON AND FUNCTIONING .WILL CONTINUE TO MONITOR.
--- NOTE | 2017-11-09 07:30 | NUR ---
RECEIVED REPORT FROM CLIENT SUPPORT ADMINISTRATOR RN FOR CONTINUITY OF CARE. BEDSIDE MONITOR SHOWS SR. ETT TO VENT FIO2 30 %, VT 450, AC 10, PEEP 5. PT ON FENTANYL DRIP 38 MCG/HR .NO SIGNS OF DISTRESS NOTED. PT HAS ARTERIAL LINE. NGT ON RIGHT NARES CONNECTED TO SUCTION. PLACEMENT CHECKED. ABDOMEN ROUND AND SOFT. ACTIVE BOWEL SOUND. DRESSING DRY AND INTACT. PT HAS RIGHT IJ OMNIKA CATH, CYNDI PICC LINE, ALL PATENT AND ASYMPTOMATIC. WALLIS CATHETER IN PLACE DRAINING CLEAR AND YELLOW URINE. MANDA DRAIN IN PLACE. SMALL AMOUNT OF OUTPUT NOTED ON DRAINS. PT HAS TPN RUNNING AT 50 MLS/HR. HOB 30 DEGREES. ALL SAFETY PRECAUTION IN PLACE. CALL LIGHT WITHIN REACH. WILL CONTINUE TO MONITOR.
[2017-11-09] MEDS: CALCIUM ACETATE 667 MG TAB NG SCH ×3 (08:00→17:00)
[2017-11-09] MEDS: PANTOPRAZOLE 40 MG INJ VIAL IVP SCH ×2 (08:16→20:35)
[2017-11-09] MEDS: MEROPENEM 500 MG in NACL 0.9% 50 ML IV SCH ×2 (08:16→20:35)
[2017-11-09] MEDS: FERROUS GLUCONATE 324 MG TAB PO SCH (09:00)
[2017-11-09] MEDS: DOCUSATE SODIUM 100 MG GELCAP PO SCH ×2 (09:00→21:00)
[2017-11-09] MEDS: ASCORBIC ACID 500 MG TAB PO SCH (09:00)
[2017-11-09] MEDS: LACTOBACILLUS RHAMNOSUS GG 1 EACH CAP PO SCH (09:00)
[2017-11-09] MEDS: ATORVASTATIN 20 MG TAB PO SCH (09:00)
[2017-11-09] MEDS: HYDROXYCHLOROQUINE 200 MG TAB PO SCH (09:00)
[2017-11-09] MEDS: HYDROCORTISONE NA SUCC 100 MG/2 ML VIAL IV SCH ×2 (09:16→20:35)
--- NOTE | 2017-11-09 09:20 | NUR ---
PT HAD MODERATE AMOUNT OF BLACK LOOSE STOOL NOTED, CLEANED PT.
[2017-11-09] MEDS ORDERED: DEXTROSE 50% 720 ML, AMINO ACIDS 8.5% 720 ML IV SCH ×2 (10:00)
--- NOTE | 2017-11-09 10:28 | NUR ---
ARTERY LINE DOES NOT WORK WELL, PER ORDER, D/C A-LINE.
[2017-11-09] MEDS: NOREPINEPHRINE 16 MG in DEXTROSE 5% 250 ML IV PRN (11:15)
--- NOTE | 2017-11-09 11:34 | NUR ---
VENT CHECK COMPLETED AND ADMINISTERED BREATHING TX. PT IS ASLEEP NOT ALERT AT THIS TIME BUT IS NOT IN ANY DISTRESS. PT SUCTIONED OBTAINED SMALL AMOUNT OF THICK YELLOW SECRETIONS, ETT IS SECURE WITH A PATENT AIRWAY.
[2017-11-09] MEDS: fentaNYL 1 MG in NACL 0.9% 80 ML IV PRN (12:12)
--- NOTE | 2017-11-09 12:12 | NUR ---
IN TO SEE PT, PER ORDER DECREASE FENTANYL DRIP TO 20 MCG/HR.
--- NOTE | 2017-11-09 12:30 | NUR ---
DIALYSIS NURSE AT BEDSIDE.
--- NOTE | 2017-11-09 14:18 | NUR ---
PAGED , MAKE HER AWARE PT IS NOT RESTLESS AFTER DECREASE FENTANYL DRIP TO 20 MCG/HR. PER DR. MORALES, DECREASED TO 10 MCG/HR, WILL CARRY OUT.
--- NOTE | 2017-11-09 14:23 | NUR ---
DR. WAGONER AWARE PT'S VITALS. PER. DR WAGONER ( LOSS PREVENTION DETECTIVE) INCREASE THE SEDATION DOSE. WILL CARRY OUT.
--- NOTE | 2017-11-09 14:25 | NUR ---
DIALYSIS STOPPED PER DR.SARANI ESPITIA.
--- NOTE | 2017-11-09 14:46 | NUR ---
CM NOTE CONCURRENT REVIEW FAXED TO [facility] (FAX# [phone], ATTN: JULISA #[phone])
--- NOTE | 2017-11-09 15:23 | NUR ---
WOUND CARE DONE, DRESSING CHANGED WITH CHARGE NURSE CHRISTOPHER.
--- NOTE | 2017-11-09 16:11 | NUR ---
11/09/17 RD FOLLOW UP COMPLETED. PLEASE REFER TO NUTRITION PROGRESS NOTE UNDER CARE ACTIVITY FOR ESTIMATED NUTRITION NEEDS. CONTINUE NPO STATUS UNTIL MEDICALLY APPROPRIATE TO ADVANCE DIET ADVANCE TOLERATED ONCE APPROPRIATE TO REGULAR TEXTURES. ONCE BILI DECREASES WNL, CONSIDER: D10, AA 4.25%, 1200 ML/DAY, IL 20%, 500 ML/DAY. THIS WILL PROVIDE 1610 KCALS AND 51 GM PRO/DAY TO MEET 100% EST KCAL AND 80% EST PRO NEEDS/DAY RD TO FOLLOW-UP 2-3DAYS, HIGH RISK JESSICA LIRA, RD
--- NOTE | 2017-11-09 16:35 | NUR ---
PT STILL C/O PAIN. TOLD PT TO SQUEEZE MY HAND TO SHOW PAIN SCALE, PT SQUEEZED 6 TIMES OF MY HAND. MORPHINE GIVEN ORDERED.
--- NOTE | 2017-11-09 17:05 | NUR ---
CALLED CT DEPARTMENT.NOTIFIED PT IS NOT STABLE TO DO CT AT THIS TIME. BP LOW. CHARGE NURSE AWARE.
[2017-11-09] MEDS: DEXTROSE 50% 720 ML, AMINO ACIDS 8.5% 720 ML IV SCH ×2 (18:47)
--- NOTE | 2017-11-09 19:15 | NUR ---
ENDORSED PT TO GREY ROLL MAN RN
--- NOTE | 2017-11-09 19:20 | NUR ---
RECEIVED REPORT FROM MORNING RN. VS STABLE AT THIS TIME. AFEBRILE. ABLE TO OPEN EYES WHEN CALLED BY HIS NAME. ETT TO VENT WITH SETTINGS AC10, FIO2 30, TV450, AND PEEP 5. NO SIGNS OF RESPIRATORY DISTRESS NOTED. LUNG SOUNDS CLEAR BUT DIMINISHED. S1+S2 HEARD. PULSES PALPABLE IN ALL EXTREMITIES. SINUS TACHYCARDIA ON MONITOR. PT ON LEVOPHED DRIP. PT NPO. NGT IN PLACE CONNECTED TO SUCTION. PLACEMENT CHECKED. NGT HAS GREENISH BLACK OUTPUT. DRESSINGS ARE INTACT, NO DRAINAGE NOTED. MANDA DRAIN IN PLACE, CURRENTLY NO OUTPUT NOTED. PT HAS MULTIPLE SKIN TEARS. RIGHT IJ MONIKA CATH IN PLACE WITH PIGTAIL AND RIGHT UPPER ARM PICC LINE IN PLACE. BOTH LINES PATENT AND ASYMPTOMATIC. PT ON FENTANYL DRIP CURRENTLY. WALLIS CATHETER IN PLACE AND DRAINING CLEAR AND YELLOW URINE. CALL LIGHT WITHIN REACH. ALL SAFETY PRECAUTIONS IN PLACE. HOB 30 DEGREES. WILL CONTINUE TO MONITOR PT.
--- NOTE | 2017-11-09 20:11 | NUR ---
RECEIVED PT STABLE ON VENT SUPPORT AT DOCUMENTED SETTINGS, SUCTIONED SCANT AMOUNTS OF BROWN THICK SECRETIONS, HHN TX GIVEN, TOLERATED WELL, NO RESP DISTRESS OR SOB NOTED AT THIS TIME, FOUND 7.5 ETT SECURED AT 25 CM AT LIP, ALARMS SET AND AUDIBLE, AMBU BAG AT BEDSIDE, VENT PLUGGED INTO RED OUTLET, WILL CONT TO MONITOR.
--- NOTE | 2017-11-09 20:30 | NUR ---
DR. RENEE AT BEDSIDE TO SEE PT. WILL FOLLOW-UP WITH ANY NEW ORDERS. DISCUSSED WITH DR. RENEE THAT DR. MAURICIO WANTS RIGHT IJ CENTRAL LINE AND CYNDI PICC LINE BE CHANGED. WILL CONTINUE TO MONITOR PT.
--- NOTE | 2017-11-09 20:40 | NUR ---
ALL SCHEDULED MEDICATIONS ADMINISTERED. PT TOLERATED WELL. STILL ON LEVOPHED DRIP. BP GOES UP AND DOWN. WILL CONTINUE TO MONITOR PT.
[2017-11-09] MEDS: lamoTRIgine 25 MG TAB PO SCH (21:00)
--- NOTE | 2017-11-09 21:20 | NUR ---
DR. MAURICIO AT BEDSIDE TO SEE PT. UPDATED DR MAURICIO REGARDING PT CONDITION. WILL FOLLOW-UP WITH ANY NEW ORDER
[2017-11-09] MEDS: MICAFUNGIN SODIUM 100 MG in NACL 0.9% 100 ML IV SCH (21:52)
--- NOTE | 2017-11-09 23:25 | NUR ---
VS STABLE AT THIS TIME. NO CHANGE IN CONDITION. WILL CONTINUE TO MONITOR PT.
[2017-11-10] VITALS (107 sets, daily range): BP systolic 90–165; BP diastolic 22–94
[2017-11-10] MEDS: BLOOD GLUCOSE MONITORING 1 DEV DEV MC SCH ×4 (00:14→17:39)
[2017-11-10] MEDS: INSULIN LISPRO SLIDING SCALE 100 UNITS/ML VIAL SUBQ PRN ×3 (00:16→19:26)
[2017-11-10] MEDS: NACL 0.9% IRR 250 ML BOTTLE IR SCH ×2 (01:00→13:01)
--- NOTE | 2017-11-10 01:30 | NUR ---
PT TAKEN TO RADIOLOGY DEPARTMENT FOR CT OF ABD. VS STABLE WHILE TRANSPORTING PT. SINUS RHYTHM ON MONITOR. NO SIGNS OF DISTRESS NOTED. CT SCAN COMPLETED AND PT RETURNED TO UNIT AT 0200. WILL CONTINUE TO MONITOR PT.
--- NOTE | 2017-11-10 03:12 | NUR ---
VS STABLE AT THIS TIME. NO CHANGE IN CONDITION. PT AROUSABLE TO NAME. STILL ON FENTANYL AND LEVOPHED DRIP. FLACC 0. NO GRIMACING OR ANY S/S PAIN NOTED. ALL SAFETY PRECAUTIONS IN PLACE. CALL LIGHT WITHIN REACH. WILL CONTINUE TO MONITOR PT.
[2017-11-10] MEDS: fentaNYL 1 MG in NACL 0.9% 80 ML IV PRN ×2 (05:24→20:04)
[2017-11-10] MEDS: ALBUTEROL SULFATE/IPRATROPIU 3 ML SOL IH SCH ×4 (06:26→19:37)
--- NOTE | 2017-11-10 06:26 | NUR ---
RECEIVED PT ON CARESCAPE ON A/C 10 VT450 PEEP5 FIO2 40 ALARMS ARE ON AND FUNCTIONAL BMV HOB PTS ET TUBE IS SECURE 25 CM SIZE 7.5 PT IN HF QUIET BS COARSE I\L LAVAGE AND SX SM YELLOW VENT PLUGGED INTO RED OUTLET NO APPARENT DISTRESS HHN GIVEN I\L WITH 3 MG DUONEB Addendum: 11/10/17 at 1138 by Ana Antonio RT CORRECT FIO2 IS 30
[2017-11-10 06:42] LABS: HEMOGLOBIN 7.2 g/dL (12.0-18.0); RED BLOOD CELL COUNT(AUTO) 2.32 MIL/uL (4.20-6.10); WHITE BLOOD COUNT (AUTO) 12.5 K/uL (4.8-10.8)
[2017-11-10 06:43] LABS: HEMATOCRIT 21.4 % (36-52); MEAN CORPUSCULAR HEMOGLOBIN 31 pg (27-31); MEAN CORPUSCULAR HGB CONC 34 g/dL (33-37); MEAN CORPUSCULAR VOLUME 92 fL (80-94)
[2017-11-10 06:45] LABS: PLATELET COUNT (AUTO) 15 K/uL (140-450)
[2017-11-10 06:46] LABS: CORRECTED WHITE BLOOD COUNT 8.9 K/uL (4.5-11.0); LYMPHOCYTES % (MANUAL) 5 % (20-46); MONOCYTES % (MANUAL) 4 % (5-12)
[2017-11-10 06:56] LABS: AMYLASE 16 U/L (25-115); LIPASE 40 U/L (73-393)
[2017-11-10 07:10] LABS: ANION GAP 13.9 (8-16); CARBON DIOXIDE 28.8 mmol/L (21-32); CREATININE 2.1 mg/dL (0.7-1.3); POTASSIUM 4.7 mmol/L (3.5-5.1); TOTAL BILIRUBIN 1.5 mg/dL (0.0-1.0)
[2017-11-10 07:11] LABS: ALBUMIN 1.6 g/dL (3.4-5.0); MAGNESIUM 2.1 mg/dL (1.8-2.4); PHOSPHORUS 3.7 mg/dL (2.5-4.9)
--- NOTE | 2017-11-10 07:15 | NUR ---
REPORT GIVEN TO MORNING RN FOR CONTINUITY OF CARE. PT IN STABLE CONDITION AT THIS TIME.
--- NOTE | 2017-11-10 07:30 | NUR ---
RECEIVED REPORT FROM PARTS SALES ADVISOR RN. PT IS SEDATED W/ RASS -3. FLACC 0. AFEBRILE. NORMAL SINUS RHYTHM ON MONITOR. S1 +S2 AUSCULTATED. PT IS ETT TO VENT W/ SETTINGS: AC 10, FIO2 30%, TV 450, PEEP 5. BILATERAL LUNGS CLEAR BUT DIMINISHED. NO SOB OR OTHER SIGNS OF DISTRESS NOTED. NGT IN PLACE TO RIGHT NARE AND CONNECTED TO SUCTION. DARK GREEN COLORED OUTPUT NOTED. PLACEMENT CONFIRMED. MONIKA CATH TO RIGHT IJ AND PICC LINE TO RIGHT UPPER ARM IN PLACE, BOTH PATENT, INTACT AND ASYMPTOMATIC. PT IS ON FENTANYL DRIP AT 76 MCG/HR, LEVOPHED DRIP AT 9 MCG/MIN TPN AT 60 ML/HR. ABDOMINAL DRESSING CLEAN, DRY AND INTACT, MANDA DRAINS IN PLACE. WALLIS CATH IN PLACE DRAINING DARK YELLOW URINE TO GRAVITY DRAINAGE BAG. PT HAS MULTIPLE BRUISES AND SKIN TEARS. SKIN IS WARM TO TOUCH. EDEMA TO BUE AND BLE NOTED. HOB 30 DEGREES AND BED IN LOWEST POSITION. CALL LIGHT WITHIN REACH. SAFETY PRECAUTIONS IN PLACE. WILL CONTINUE TO MONITOR.
[2017-11-10] MEDS: CALCIUM ACETATE 667 MG TAB NG SCH ×3 (08:00→16:14)
--- NOTE | 2017-11-10 08:45 | NUR ---
WOUND CARE RE-EVALUATION SKIN ASSESSMENT DONE WITH PRIMARY RN, -MULTIPLE ECCHYMOSIS TO UPPER CHEST , ABDOMINAL AND BILATERAL UPPER AND LOWER EXTREMITIES DUE TO MULTIPLE PROCEDURES AND POSSIBLE DIC. -MULTIPLE SKIN LESIONS WITH CLEAR BODY FLUIDS SEEPING OUT OF SKIN ON BILATERAL UPPER AND LOWER EXTREMITIES. -BLANCHABLE REDNESS TO SACRAL COCCYX AND BILATERAL HEELS, NO PRESSURE INJURY NOTICE AT THIS TIME. -MID ABDOMEN SURGICAL WOUND WITH PRESSURE DRESSING AND [address], DRESSING DRY AND CLEAN. -LLE PAD RECOMMENDATIONS: -CONSULT SURGEON FOR ABDOMINAL WOUND DRESSING CHANGE -APPLY SKIN PREP TO ALL ECCHYMOSIS, INTACT SKIN AREAS QD -APPLY OPTIFORM TO SACRALCOCCYX PREVENTIVE MEASUREMENT -COVER UPPER/LOWER EXTREMITIES WITH ABDOMEN PAD AND WRAP WITH KERLIX LOOSELY, NO TAPE. -OFF LOAD SACRALCOCCYX AND BILATERAL HEELS BY USING PILLOWS TO POSITION AND HEEL RAISERS -NO COMPRESSION DRESSING TO LLE -TURN AND REPOSITION Q2H -KEEP SKIN DRY AND CLEAN AT ALL TIMES -PRESSURE REDISTRIBUTION SURFACE THERAPY COMORBIDITIES, RELATED TO SKIN BREAKDOWN; CRITICAL MEDICAL CONDITION, RENAL DIALYSIS, HOB ELEVATED THE MAJORITY OF THE DAY FOR MEDICAL CONDITION, DECREASE MOBILITY AND FUNCTIONAL ABILITY. RECOMMENDATIONS DISCUSSED WITH PRIMARY RN WILL FOLLOW UP PT Q 7-10 DAYS, PLEASE CONTACT WOUND CARE NURSE IF ANY QUESTIONS OR CHANGE OF SKIN CONDITION.
--- NOTE | 2017-11-10 08:50 | NUR ---
DR. NUÑEZ IN TO SEE PT. WILL FOLLOW UP ON ORDERS.
--- NOTE | 2017-11-10 08:55 | NUR ---
SPOKE TO WITH UPDATE OF PT. CURRENT SKIN CONDITION. ALL QUESTIONS ANSWERED.
[2017-11-10] MEDS: HYDROXYCHLOROQUINE 200 MG TAB PO SCH (09:00)
[2017-11-10] MEDS: DOCUSATE SODIUM 100 MG GELCAP PO SCH ×2 (09:00→20:21)
[2017-11-10] MEDS: ATORVASTATIN 20 MG TAB PO SCH (09:00)
[2017-11-10] MEDS: LACTOBACILLUS RHAMNOSUS GG 1 EACH CAP PO SCH (09:00)
[2017-11-10] MEDS: ASCORBIC ACID 500 MG TAB PO SCH (09:00)
--- NOTE | 2017-11-10 09:30 | NUR ---
PT HAD MODERATE AMOUNT OF DARK LOOSE STOOLS. PT TOLERATED CLEANING AND REPOSITIONING.
[2017-11-10] MEDS: PANTOPRAZOLE 40 MG INJ VIAL IVP SCH ×2 (09:37→20:20)
[2017-11-10] MEDS: HYDROCORTISONE NA SUCC 100 MG/2 ML VIAL IV SCH ×2 (09:37→20:20)
[2017-11-10] MEDS: MEROPENEM 500 MG in NACL 0.9% 50 ML IV SCH ×2 (09:45→21:46)
--- NOTE | 2017-11-10 09:50 | NUR ---
DR. VYAS TO SEE PT. WILL FOLLOW UP WITH NEW ORDERS.
--- NOTE | 2017-11-10 09:55 | NUR ---
CLARIFIED NPO ORDER WITH DR. NUÑEZ. PER DR. NUÑEZ, KEEP HOLDING NGT MEDICATIONS FOR NOW. WILL FOLLOW UP WITH NEW ORDERS.
--- NOTE | 2017-11-10 12:03 | NUR ---
DR. WAGONER IN TO SEE PT. WILL FOLLOW UP ON ORDERS.
[2017-11-10] MEDS ORDERED: FUROSEMIDE 40 MG/4 ML VIAL IVP SCH (12:30)
--- NOTE | 2017-11-10 12:30 | NUR ---
NO CHANGE OF CONDITION AT THIS TIME. VITAL SIGNS STABLE. SAFETY MEASURES IN PLACE. WILL CONTINUE TO MONITOR.
--- NOTE | 2017-11-10 14:10 | NUR ---
DR. MORALES IN TO SEE AND EXAMINE PT. WILL FOLLOW UP WITH NEW ORDERS. PT IS IN STABLE CONDITION.
--- NOTE | 2017-11-10 14:14 | NUR ---
FAXED CONCURRENT REVIEW TO [facility] [phone] PHONE [phone] X [phone]
[2017-11-10] MEDS: NOREPINEPHRINE 16 MG in DEXTROSE 5% 250 ML IV PRN (15:45)
--- NOTE | 2017-11-10 16:13 | NUR ---
FAMILY AT BEDSIDE. VITAL SIGNS STABLE. NO S/SX OF DISTRESS AT THIS TIME. SAFETY PRECAUTIONS IN PLACE. WILL CONTINUE TO MONITOR.
--- NOTE | 2017-11-10 16:30 | NUR ---
PLATELET TRANSFUSION COMPLETED. NO ADVERSE REACTION NOTED. VSS.
--- NOTE | 2017-11-10 17:04 | NUR ---
PT HAD A SMEAR OF BOWEL MOVEMENT. CLEANED AND REPOSITIONED PT. PT TOLERATED WELL. VSS. WILL CONTINUE TO MONITOR.
--- NOTE | 2017-11-10 17:32 | NUR ---
DR. SERRANO IN TO SEE AND EXAMINE PT. WILL FOLLOW UP ON ORDERS.
--- NOTE | 2017-11-10 19:20 | NUR ---
RECEIVED REPORT FROM MORNING SHIFT DICK PRESLEY. PT IS SEDATED WITH FENTANYL DRIP RASS -2. PT IS ETT TO VENT SETTINGS WITH A/C 10, FIO2 30%, TV 450, PEEP 5. BILATERAL LUNGS COARSE. NORMAL SINUS RHYTHM ON MONITOR. S1 +S2 AUSCULTATED. NGT IN PLACE TO RIGHT NARE AND CONNECTED TO SUCTION. DARK GREEN COLORED GASTRIC SECRETION NOTED. MONIKA CATH TO RIGHT IJ AND PICC LINE TO RIGHT UPPER ARM IN PLACE, PATENT, INTACT AND ASYMPTOMATIC. PT ON LEVOPHED DRIP AT 9 MCG/MIN TPN AT 60 ML/HR. ABDOMINAL DRESSING CLEAN, DRY AND INTACT, MANDA DRAINS IN PLACE. WALLIS CATH IN PLACE DRAINING CLEAR YELLOW URINE TO GRAVITY DRAINAGE BAG.EDEMA TO BUE AND BLE NOTED. PT HAS MULTIPLE BRUISES AND SKIN TEARS. SKIN IS WARM TO TOUCH. HOB 30 DEGREES AND BED IN LOWEST POSITION. CALL LIGHT WITHIN REACH. SAFETY PRECAUTIONS IN PLACE. WILL CONTINUE TO MONITOR.
--- NOTE | 2017-11-10 19:30 | NUR ---
REPORT GIVEN TO NIGHT NURSE FOR CONTINUITY OF CARE. PT IS IN STABLE CONDITION.
[2017-11-10] MEDS: DEXTROSE 50% 720 ML, AMINO ACIDS 8.5% 720 ML IV SCH ×2 (19:58)
[2017-11-10] MEDS: MICAFUNGIN SODIUM 100 MG in NACL 0.9% 100 ML IV SCH (20:20)
[2017-11-10] MEDS: lamoTRIgine 25 MG TAB PO SCH (20:21)
--- NOTE | 2017-11-10 21:00 | NUR ---
ADMINISTERED SCHEDULED MEDICATIONS ORDERED, TOLERATED WELL. NO ACUTE DISTRESS NOTED. PT IS SEDATED RASS -2. AROUSABLE TO VOICE. WILL CONTINUE TO MONITOR.
--- NOTE | 2017-11-10 22:45 | NUR ---
LEVOPHED TITRATED DOWN TO 7MCG/KG/MIN, 6.56ML/HR D/T SBP ABOVE 150'S NOTED. WILL CONTINUE TO MONITOR
--- NOTE | 2017-11-10 23:10 | NUR ---
DR. RENEE AT BEDSIDE AT THIS TIME. WILL FOLLOW THE ORDER.
[2017-11-11] VITALS (101 sets, daily range): BP systolic 57–158; BP diastolic 37–142
--- NOTE | 2017-11-11 00:45 | NUR ---
BS CHECKED 152 NOTED, ADMINISTERED 2 UNITS OF HUMOLOG, TOLERATED WELL. CONTINUE TO MONITOR.
[2017-11-11] MEDS: BLOOD GLUCOSE MONITORING 1 DEV DEV MC SCH ×5 (00:51→23:54)
[2017-11-11] MEDS: INSULIN LISPRO SLIDING SCALE 100 UNITS/ML VIAL SUBQ PRN ×2 (00:54→14:28)
[2017-11-11] MEDS: NACL 0.9% IRR 250 ML BOTTLE IR SCH (01:00)
--- NOTE | 2017-11-11 01:37 | NUR ---
TITRATED DOWN TO 5MCG/MIN, 4.68ML/HR D/T HYPERTENSION. NO ACUTE DISTRESS NOTED. WILL CONTINUE TO MONITOR.
--- NOTE | 2017-11-11 03:30 | NUR ---
PT IS SEDATED, RASS -2, RESPONSIVE TO VOICE. NO ACUTE DISTRESS NOTED. SR ON THE MONITOR. WILL CONTINUE TO MONITOR.
--- NOTE | 2017-11-11 04:45 | NUR ---
PROVIDED ORAL CARE, TOLERATED WELL, SMALL AMOUNT OF WHITE SECRETIONS FROM MOUTH AND ET TUBE NOTED. PT IS SEDATED WITH FENTANYL DRIP, AROUSABLE TO VOICE. NO ACUTE DISTRESS NOTED.
[2017-11-11 05:02] LABS: MEAN CORPUSCULAR HEMOGLOBIN 31 pg (27-31); MEAN CORPUSCULAR HGB CONC 34 g/dL (33-37); MEAN CORPUSCULAR VOLUME 92 fL (80-94); RED BLOOD CELL COUNT(AUTO) 2.11 MIL/uL (4.20-6.10); RED CELL DISTRIBUTION WIDTH 14.9 % (11.6-13.7); WHITE BLOOD COUNT (AUTO) 8.8 K/uL (4.8-10.8)
--- NOTE | 2017-11-11 05:30 | NUR ---
BS CHECKED 134 NOTED NO COVERAGE NEEDED. NO ACUTE DISTRESS NOTED. WILL CONTINUE TO MONITOR.
--- NOTE | 2017-11-11 06:30 | NUR ---
DR. TAYLOR AT THE BEDSIDE TO CHECK THE PT. WILL FOLLOW THE ORDER. LEVOPHED TITRATED DOWN TO 3MCG/MIN D/T BP STABLE AT SBP ABOVE 110. NO ACUTE DISTRESS NOTED.
[2017-11-11 06:39] LABS: MAGNESIUM 2.2 mg/dL (1.8-2.4); PHOSPHORUS 4.3 mg/dL (2.5-4.9)
[2017-11-11 06:40] LABS: ALBUMIN 1.5 g/dL (3.4-5.0); ANION GAP 15.1 (8-16); CARBON DIOXIDE 28.1 mmol/L (21-32); CREATININE 2.3 mg/dL (0.7-1.3); POTASSIUM 5.2 mmol/L (3.5-5.1); TOTAL BILIRUBIN 1.7 mg/dL (0.0-1.0)
[2017-11-11] MEDS: ALBUTEROL SULFATE/IPRATROPIU 3 ML SOL IH SCH ×4 (06:44→20:04)
--- NOTE | 2017-11-11 06:44 | NUR ---
REC'D PT ON CARESCAPE VENT SETTINGS AC10 VT 450 PEEP 5 FIO2 30% ALARMS ON AND FUNCTIONING PROPERLY, AMBU BAG IS AT SIDE OF VENT AND VENT IS PLUGGED INTO RED OUTLET, I\L TX GIVEN WITH DUONEB 3ML WITH NO ADVERSE REACTION POST TX B\S ARE COARSE BILATERALLY, SXN PT SMALL AMT OF YELLOW SECRETIONS, PT IS ORALLY INTUBATED WITH 7.5 ET TUBE SECURED AT 25 CM AT MIDLINE AND CUFF PRESSURE IS 26 CM H20 PT IS AGITATED
--- NOTE | 2017-11-11 07:30 | NUR ---
RECEIVED REPORT FROM MUSEUM EDUCATOR RN. PT IS SEDATED W/ RASS -2. NORMAL SINUS RHYTHM ON MONITOR. S1 +S2 AUSCULTATED. PT IS ETT TO VENT W/ SETTINGS: AC 10, FIO2 30%, TV 450, PEEP 5. BILATERAL LUNGS DIMINISHED. NO SOB NOTED. BREATHING IS EVEN AND UNLABORED. NGT IN PLACE TO RIGHT NARE AND CONNECTED TO SUCTION, DRAINING DARK GREEN COLORED. PLACEMENT CONFIRMED VIA AUSCULTATION. MONIKA CATH TO RIGHT IJ AND PICC LINE TO RIGHT UPPER ARM IN PLACE, BOTH PATENT, INTACT AND ASYMPTOMATIC. PT IS ON FENTANYL DRIP AT 76 MCG/HR, LEVOPHED DRIP AT 3 MCG/MIN AND TPN AT 60 ML/HR. ABDOMINAL DRESSING CLEAN, DRY AND INTACT, MANDA DRAINS IN PLACE. WALLIS CATH IN PLACE DRAINING DARK YELLOW URINE. MULTIPLE BRUISES AND SKIN TEARS TO BL EXTREMETIES. FLACC 0. AFEBRILE. SKIN IS WARM TO TOUCH. EDEMA TO BOTH BUE AND BLE. HOB 30 DEGREES. ALL SAFETY PRECAUTIONS IN PLACE. WILL CONTINUE TO MONITOR.
--- NOTE | 2017-11-11 07:30 | NUR ---
REPORT GIVEN TO MENDOZA.
[2017-11-11 07:33] LABS: HEMATOCRIT 19.5 % (36-52); HEMOGLOBIN 6.6 g/dL (12.0-18.0)
[2017-11-11 07:34] LABS: PLATELET COUNT (AUTO) 16 K/uL (140-450)
--- NOTE | 2017-11-11 08:30 | NUR ---
RECEIVED A CALL FROM PICC LINE NURSEDONALD. WILL COME IN ABOUT TWO HOURS.
[2017-11-11 08:31] LABS: CORRECTED WHITE BLOOD COUNT 8.2 K/uL (4.5-11.0); LYMPHOCYTES % (MANUAL) 1 % (20-46); METAMYELOCYTES % 1 % (0-0); MONOCYTES % (MANUAL) 4 % (5-12)
--- NOTE | 2017-11-11 08:40 | NUR ---
DR. ARGUETA AND RESIDENT GROUP IN TO SEE PT. WILL FOLLOW UP ON ORDERS. DR. ARGUETA AWARE OF BUN LEVEL OF 43. OK TO DO CT W/ CONTRAST PER DR. ARGUETA.
[2017-11-11] MEDS: DOCUSATE SODIUM 100 MG GELCAP PO SCH ×2 (09:00→20:59)
[2017-11-11] MEDS: PANTOPRAZOLE 40 MG INJ VIAL IVP SCH ×2 (09:25→20:58)
[2017-11-11] MEDS: MEROPENEM 500 MG in NACL 0.9% 50 ML IV SCH ×2 (09:25→20:11)
--- NOTE | 2017-11-11 09:25 | NUR ---
VENT CHECK, NO SXN REQUIRED AIRWAY IS PATENT
[2017-11-11] MEDS: HYDROCORTISONE NA SUCC 100 MG/2 ML VIAL IV SCH ×2 (09:26→20:59)
[2017-11-11] MEDS: CALCIUM ACETATE 667 MG TAB NG SCH ×3 (09:27→17:52)
[2017-11-11] MEDS: ASCORBIC ACID 500 MG TAB PO SCH (09:27)
[2017-11-11] MEDS: FERROUS GLUCONATE 324 MG TAB PO SCH (09:27)
[2017-11-11] MEDS: LACTOBACILLUS RHAMNOSUS GG 1 EACH CAP PO SCH (09:28)
[2017-11-11] MEDS: HYDROXYCHLOROQUINE 200 MG TAB PO SCH (09:28)
[2017-11-11] MEDS: ATORVASTATIN 20 MG TAB PO SCH (09:28)
[2017-11-11] MEDS: FUROSEMIDE 40 MG/4 ML VIAL IVP SCH (09:29)
--- NOTE | 2017-11-11 09:54 | NUR ---
MEDICATIONS ADMINISTERED. PT TOLERATED WELL.
--- NOTE | 2017-11-11 10:35 | NUR ---
DR. WAGONER IN TO SEE PT. WILL FOLLOW UP ON ORDERS.
--- NOTE | 2017-11-11 10:45 | NUR ---
PT RECEIVING DIALYSIS. VITAL SIGNS STABLE. WILL CONTINUE TO MONITOR.
[2017-11-11 10:51] LABS: D-DIMER > 5000 ng/ml (0-400)
[2017-11-11] MEDS: fentaNYL 1 MG in NACL 0.9% 80 ML IV PRN (10:57)
--- NOTE | 2017-11-11 11:03 | NUR ---
vent check, sxn pt small amt of cream color secretions, b\s are coarse and pt is receiving dialysis Addendum: 11/11/[address] RT no hhn given pt is sleeping
[2017-11-11 11:06] LABS: PROTHROMBIN TIME 14.1 secs (10.8-13.4)
--- NOTE | 2017-11-11 12:00 | NUR ---
PT STILL RECEIVING DIALYSIS. HR 145, BP 91/69. DR. TAYLOR AWARE OF INCREASED HR.
--- NOTE | 2017-11-11 12:10 | NUR ---
DR. TAYLOR IN TO SEE PT. WILL FOLLOW UP ON ORDERS.
--- NOTE | 2017-11-11 12:20 | NUR ---
DR. WAGONER MADE AWARE OF INCREASED HR AND DECREASED BP. PER DR. WAGONER, STOP DIALYSIS NOW. HD COMPLETED BY OFFICE MESSENGER. TOTAL FLUID 1 L REMOVED. NO ACUTE DISTRESS NOTED. WILL CONTINUE TO MONITOR.
--- NOTE | 2017-11-11 12:30 | NUR ---
RECEIVED A CALL FROM [facility]. CANNOT INSERT PICC LINE UNTIL PLATELET LEVEL AT LEAST 50. DR. TAYLOR MADE AWARE. WILL FOLLOW UP ON ORDERS.
--- NOTE | 2017-11-11 13:46 | NUR ---
vent check, sxn pt small amt of yellow secretion pt is resting
--- NOTE | 2017-11-11 14:30 | NUR ---
BLOOD TRANSFUSION STARTED. VSS. AFEBRILE. WILL MONITOR ADVERSE REACTIONS.
--- NOTE | 2017-11-11 15:09 | NUR ---
VERBAL REVIEW GIVEN TO [facility] [phone]
--- NOTE | 2017-11-11 15:25 | NUR ---
vent check, no sxn needed at this time airway is patent pt is resting Addendum: 11/11/[address] RT NO HHN GIVEN PT IS SLEEPING WITH NO SIGNS OF DISTRESS NOTED AT THIS TIME
--- NOTE | 2017-11-11 15:39 | NUR ---
FAXED REVIEW TO [facility] [phone] PHONE [facility] [phone]
--- NOTE | 2017-11-11 17:00 | NUR ---
BLOOD TRANSFUSION COMPLETED. NO ADVERSE REACTION NOTED. WILL CONTINUE TO MONITOR.
--- NOTE | 2017-11-11 17:10 | NUR ---
PLATELET TRANSFUSION STARTED. VITAL SIGNS STABLE. WILL MONITOR FOR ADVERSE REACTIONS.
--- NOTE | 2017-11-11 17:15 | NUR ---
VENT CHECK, SXN PT SMALL AMT OF CREAM COLOR SECRETIONS, PT IS RESTING AIRWAY IS PATENT
--- NOTE | 2017-11-11 18:28 | NUR ---
DR. SERRANO IN TO SEE PT. WILL FOLLOW UP ON ORDERS.
--- NOTE | 2017-11-11 19:30 | NUR ---
REPORT GIVEN TO NIGHT NURSE FOR CONTINUITY OF CARE. NO ACUTE DISTRESS AT THIS TIME.
--- NOTE | 2017-11-11 19:30 | NUR ---
RECEIVED REPORT FROM MORNING SHIFT DICK PRESLEY. PT IS SEDATED WITH FENTANYL DRIP RASS -2. NO FEVER. PT IS ETT TO VENT SETTINGS WITH A/C 10, FIO2 30%, TV 450, PEEP 5. BILATERAL LUNGS DIMINISHED. NORMAL SINUS RHYTHM ON MONITOR. S1 +S2 AUSCULTATED. NGT IN PLACE TO RIGHT NARE AND CONNECTED TO SUCTION. DARK GREEN COLORED GASTRIC SECRETION NOTED. MONIKA CATH TO RIGHT IJ AND PICC LINE TO RIGHT UPPER ARM IN PLACE, PATENT, INTACT AND ASYMPTOMATIC. PT ON LEVOPHED DRIP AT 5 MCG/MIN TPN AT 60 ML/HR. PT ON 1 UNIT OF PLATELETS TO CENTRAL LINE. ABDOMINAL DRESSING CLEAN, DRY AND INTACT, MANDA DRAINS IN PLACE. WALLIS CATH IN PLACE DRAINING CLEAR YELLOW URINE TO GRAVITY DRAINAGE BAG. EDEMA TO BUE AND BLE NOTED. PT HAS MULTIPLE BRUISES AND SKIN TEARS. SKIN IS WARM TO TOUCH. HOB 30 DEGREES AND BED IN LOWEST POSITION. CALL LIGHT WITHIN REACH. SAFETY PRECAUTIONS IN PLACE. WILL CONTINUE TO MONITOR.
--- NOTE | 2017-11-11 19:40 | NUR ---
X-RAY TECH IS HERE TO KUB WITH PO CONTRAST. PO CONTRAST GIVEN AT 1925, X-RAY DONE AT 1940. WILL FOLLOW WITH RESULT.
[2017-11-11] MEDS: DEXTROSE 50% 720 ML, AMINO ACIDS 8.5% 720 ML IV SCH ×2 (20:01)
[2017-11-11] MEDS: lamoTRIgine 25 MG TAB PO SCH (20:59)
--- NOTE | 2017-11-11 21:00 | NUR ---
ADMINISTERED SCHEDULED MEDICATIONS ORDERED. NO ACUTE DISTRESS NOTED. WILL CONTINUE TO MONITOR.
--- NOTE | 2017-11-11 21:15 | NUR ---
FENTANYL TITRATED UP TO 80MCG/HR, 8ML/HR D/T PT GOT AGITATED WITH TRYING TO TOUCH THE TUBING. WILL CONTINUE TO MONITOR.
[2017-11-11 22:18] LABS: WHITE BLOOD COUNT (AUTO) 9.9 K/uL (4.8-10.8)
--- NOTE | 2017-11-11 22:40 | NUR ---
SECOND 1 UNIT OF PLATELET STARTED AT 2225, NO REACTION NOTED. NO ACUTE DISTRESS NOTED. WILL CONTINUE TO MONITOR.
[2017-11-11 22:43] LABS: HEMATOCRIT 24.6 % (36-52); HEMOGLOBIN 8.3 g/dL (12.0-18.0); MEAN CORPUSCULAR HEMOGLOBIN 31 pg (27-31); MEAN CORPUSCULAR HGB CONC 34 g/dL (33-37); MEAN CORPUSCULAR VOLUME 91 fL (80-94); RED BLOOD CELL COUNT(AUTO) 2.71 MIL/uL (4.20-6.10); RED CELL DISTRIBUTION WIDTH 14.3 % (11.6-13.7)
[2017-11-11 22:45] LABS: PLATELET COUNT (AUTO) 18 K/uL (140-450)
--- NOTE | 2017-11-11 22:45 | NUR ---
FENTANYL TITRATED UP TO 90MCG/HR, 9ML/HR D/T PT GOT AGITATED WITH TRYING TO TOUCH THE TUBING. WILL CONTINUE TO MONITOR.
[2017-11-11] MEDS: MICAFUNGIN SODIUM 100 MG in NACL 0.9% 100 ML IV SCH (22:50)
--- NOTE | 2017-11-11 23:54 | NUR ---
BS CHECKED 150 NOTED. NO COVERAGE NEEDED.
[2017-11-12] VITALS (100 sets, daily range): BP systolic 81–173; BP diastolic 46–109
--- NOTE | 2017-11-12 00:20 | NUR ---
SECOND 1 UNIT OF PLATELET DONE AT 0020, NO REACTION NOTED. NO ACUTE DISTRESS NOTED. WILL CONTINUE TO MONITOR.
[2017-11-12 00:48] LABS: CORRECTED WHITE BLOOD COUNT 8.8 K/uL (4.5-11.0); LYMPHOCYTES % (MANUAL) 1 % (20-46); MONOCYTES % (MANUAL) 3 % (5-12)
--- NOTE | 2017-11-12 00:55 | NUR ---
3RD 1 UNIT OF PLATELET STARTED AT 0040, NO REACTION NOTED. VS IS STABLE, NO FEVER. WILL CONTINUE TO MONITOR.
[2017-11-12] MEDS ORDERED: fentaNYL 0.05 MG/ML VIAL ONE (01:22)
--- NOTE | 2017-11-12 01:59 | NUR ---
VENT CHECK DONE. PT IS MORE AWAKE AND BITTING ON TUBE. RN AT BEDSIDE. SPO2 AT 88%. INCREASED FIO2 TO 50% AND TALKED TO PT ABOUT NOT BITTING TUBE. PT FOLLOWED COMMAND BUT IRRITABLE. WILL CONTINUE TO MONITOR.
[2017-11-12] MEDS: fentaNYL 1 MG in NACL 0.9% 80 ML IV PRN ×2 (02:00→13:14)
--- NOTE | 2017-11-12 02:15 | NUR ---
3RD 1 UNIT OF PLATELET IS DONE AT 0208, NO REACTION NOTED, NO FEVER, NO SOB. VS IS STABLE. NO ACUTE DISTRESS NOTED. WILL CONTINUE TO MONITOR.
--- NOTE | 2017-11-12 03:45 | NUR ---
LEVOPHED TITRATED DOWN TO 2MCG/MIN. BP IS STABLE, SBP ABOVE 110'S. NO ACUTE DISTRESS NOTED. PT IS SEDATED. WILL CONTINUE TO MONITOR.
[2017-11-12 06:21] LABS: MEAN CORPUSCULAR HEMOGLOBIN 31 pg (27-31); MEAN CORPUSCULAR HGB CONC 34 g/dL (33-37); MEAN CORPUSCULAR VOLUME 92 fL (80-94); PLATELET COUNT (AUTO) 112 K/uL (140-450); RED BLOOD CELL COUNT(AUTO) 2.23 MIL/uL (4.20-6.10); RED CELL DISTRIBUTION WIDTH 14.5 % (11.6-13.7); WHITE BLOOD COUNT (AUTO) 7.3 K/uL (4.8-10.8)
[2017-11-12 06:25] LABS: ALBUMIN 1.7 g/dL (3.4-5.0); ANION GAP 15.9 (8-16); CARBON DIOXIDE 27.1 mmol/L (21-32); CREATININE 2.2 mg/dL (0.7-1.3); TOTAL BILIRUBIN 2.3 mg/dL (0.0-1.0)
[2017-11-12] MEDS: BLOOD GLUCOSE MONITORING 1 DEV DEV MC SCH ×4 (06:26→23:55)
[2017-11-12 06:28] LABS: MAGNESIUM 2.2 mg/dL (1.8-2.4); PHOSPHORUS 4.5 mg/dL (2.5-4.9)
--- NOTE | 2017-11-12 06:30 | NUR ---
DR. DUNAWAY AT BEDSIDE TO CHECK THE PT. WILL FOLLOW THE ORDER.
[2017-11-12] MEDS: ALBUTEROL SULFATE/IPRATROPIU 3 ML SOL IH SCH ×4 (06:50→20:00)
[2017-11-12 07:12] LABS: HEMATOCRIT 20.5 % (36-52); HEMOGLOBIN 6.9 g/dL (12.0-18.0)
[2017-11-12 07:14] LABS: LYMPHOCYTES % (MANUAL) 3 % (20-46); MONOCYTES % (MANUAL) 3 % (5-12)
[2017-11-12 07:15] LABS: CORRECTED WHITE BLOOD COUNT 6.8 K/uL (4.5-11.0)
[2017-11-12] MEDS ORDERED: PROBIOTIC SCREEN 1 EA MISC MC PRN (07:20)
--- NOTE | 2017-11-12 07:20 | NUR ---
REPORT GIVEN TO MORNING RN.
--- NOTE | 2017-11-12 07:21 | NUR ---
RECEIVED REPORT FROM PHYSICIST LIGHT AND OPTICS RN FOR CONTINUITY OF CARE. PATIENT IS AWAKE, ABLE TO FOLLOW SIMPLE COMMANDS. ETT TO VENT, AC MODE, FI02 50, TV 450, RATE 12, PEEP 5. BILATERAL LUNGS SOUNDS COARSE CRACKLES. S1 AND S2 HEART SOUNDS HEARD. NG TUBE TO R NARES TO LOW INTERMITTENT SUCTION. PATIENT HAS MULTIPLE SKIN TEARS, MULTIPLE ECCHYMOSIS. PATIENT HAS MONIKA CATH TO RIGHT IJ AND PICC LINE TO RIGHT UPPER ARM. PATENT, INTACT. ABDOMINAL DRESSING DRY AND CLEAN WITH TWO MANDA DRAINS. WALLIS IN PLACE TO CLEAR YELLOW URINE IN MODERATE AMOUNT. CALL LIGHT WITHIN REACH. BED IN LOWEST POSSIBLE POSITION. NO SIGNS OF DISTRESS. WILL CONTINUE TO MONITOR.
--- NOTE | 2017-11-12 07:30 | NUR ---
RT AT BEDSIDE, CHANGED VENT SETTING TO FIO2 40%. PATIENT O2 SAT 100%. WILL MONITOR PATIENT
--- NOTE | 2017-11-12 07:30 | NUR ---
TURNED AND REPOSITIONED AT THIS TIME. PATIENT TOLERATED WELL. ORAL CARE GIVEN.
--- NOTE | 2017-11-12 07:39 | NUR ---
RECIVED PT ON VENT WITH SETTINGS CHARTED BREATH SOUNDS PRESENT BILAT SXN PT WITH MIN AMT OFF WHITE SECS BREATH SOUNDS PRESENT BILAT COARSE DECREASED FIO2 TO 40 RN AWARE AMBU BAG AT BEDSIDE VENT PLUGGED INTO RED OUTLET WILL CONTINUE TO MONITOR PT ON VENT
--- NOTE | 2017-11-12 08:00 | NUR ---
DR. ARGUETA AND RESIDENT PHYSICIANS ROUNDING ON PATIENT. MADE AWARE OF PATIENTS HEMOGLOBIN LEVEL. WILL WAIT FOR NEW ORDERS.
[2017-11-12] MEDS: ASCORBIC ACID 500 MG TAB PO SCH (08:37)
[2017-11-12] MEDS: HYDROXYCHLOROQUINE 200 MG TAB PO SCH (08:37)
[2017-11-12] MEDS: LACTOBACILLUS RHAMNOSUS GG 1 EACH CAP PO SCH (08:38)
[2017-11-12] MEDS: CALCIUM ACETATE 667 MG TAB NG SCH ×3 (08:38→19:08)
[2017-11-12] MEDS: PANTOPRAZOLE 40 MG INJ VIAL IVP SCH ×2 (08:39→20:40)
[2017-11-12] MEDS: HYDROCORTISONE NA SUCC 100 MG/2 ML VIAL IV SCH ×2 (08:39→20:40)
[2017-11-12] MEDS: ATORVASTATIN 20 MG TAB PO SCH (08:40)
[2017-11-12] MEDS: MEROPENEM 500 MG in NACL 0.9% 50 ML IV SCH ×2 (08:41→20:42)
[2017-11-12] MEDS: FUROSEMIDE 40 MG/4 ML VIAL IVP SCH (08:42)
[2017-11-12] MEDS: DOCUSATE 100 MG/10 ML UDC GT SCH ×2 (09:00→20:40)
--- NOTE | 2017-11-12 09:18 | NUR ---
WEANING NOT ATTEMPTED AT THIS TIME PT STILL ON SEDATION RN AWARE
--- NOTE | 2017-11-12 10:28 | NUR ---
1 UNIT OF PRBC SERIAL NUMBER [id number] STARTED. WILL MONITOR PATIENT FOR ANY S/S OF BLOOD TRANSFUSION REACTION.
--- NOTE | 2017-11-12 10:55 | NUR ---
PICC LINE RN AT BEDSIDE. TIME OUT PERFORMED.
--- NOTE | 2017-11-12 11:20 | NUR ---
PICC LINE INSERTION DONE BY PICC LINE RN. XRAY TAKEN. OKAY TO USE PICC LINE PER PICC LINE RN.
[2017-11-12] MEDS ORDERED: NACL 0.9% 250 ML IV SCH ×3 (12:45→18:40)
[2017-11-12] MEDS ORDERED: LORazepam 2 MG/ML VIAL IVP PRN ×2 (12:55→17:20)
[2017-11-12] MEDS ORDERED: LORazepam 2 MG/ML VIAL ONE (13:00)
--- NOTE | 2017-11-12 13:10 | NUR ---
BLOOD TRANSFUSION DONE. NO S/S OF BLOOD TRANSFUSION REACTION. PATIENT TOLERATED WELL
--- NOTE | 2017-11-12 13:53 | NUR ---
11/12/17 RD FOLLOW UP COMPLETED. PLEASE REFER TO NUTRITION PROGRESS NOTE UNDER CARE ACTIVITY FOR ESTIMATED NUTRITION NEEDS. CONTINUE NPO STATUS UNTIL MEDICALLY APPROPRIATE TO ADVANCE DIET ADVANCE TOLERATED ONCE APPROPRIATE TO REGULAR TEXTURES. INCLUDE LIPIDS WITH CURRENT TPN ORDER ONCE BILI WNL RD TO FOLLOW-UP 2-3DAYS, HIGH RISK JESSICA LIRA, RD
--- NOTE | 2017-11-12 14:10 | NUR ---
CM NOTE CONCURRENT REVIEW FAXED TO [facility] (FAX# [phone], ATTN: JULISA #[phone])
[2017-11-12 15:02] LABS: HEMATOCRIT 27.9 % (36-52); HEMOGLOBIN 9.1 g/dL (12.0-18.0)
[2017-11-12] MEDS: NOREPINEPHRINE 16 MG in DEXTROSE 5% 250 ML IV PRN (15:25)
--- NOTE | 2017-11-12 15:45 | NUR ---
RIGHT PICC LINE REMOVED, TIP INTACT, SENT TO LAB FOR CULTURE. NO BLEEDING NOTED. PATIENT TOLERATED PROCEDURE WELL.
--- NOTE | 2017-11-12 17:30 | NUR ---
MONIKA CATHETER INSERTED BY DR. NUÑEZ AND DR. FARAH. PATIENT'S BLOOD PRESSURE DROPPED TO 80/46 MMHG. LEVOPHED TITRATED UP TO 4 MCG/MIN. DR NUÑEZ AND DR FARAH AWARE. BP RECHECKED BP 81/46 MMHG, LEVOPHED TIRTATED UP TO 6 MCG/HR. LATEST BP171/81 MMHG. WILL CONTINUE TO MONITOR PATIENT.
--- NOTE | 2017-11-12 17:30 | NUR ---
DR. NUÑEZ REMOVED SONNY FRANK. PATIENT TOLERATED WELL. TIP OF CATHETER SENT TO LAB FOR CULTURE.
--- NOTE | 2017-11-12 17:55 | NUR ---
continued to monitor pt on vent with settings as charted breath sounds present bilat coarse sxn pt with min amt off white secs vent plugged into red outlet ambu bag at bedside
[2017-11-12] MEDS ORDERED: MIDAZOLAM 2 MG/2 ML VIAL ONE (18:25)
--- NOTE | 2017-11-12 18:30 | NUR ---
X RAY TAKEN FOR MONIKA PLACEMENT CONFIRMATION. WILL AWAIT FOR RESULTS.
--- NOTE | 2017-11-12 19:25 | NUR ---
REPORT GIVEN TO NIGHT RN FOR CONTINUITY OF CARE. PATIENT IN STABLE CONDITION.
--- NOTE | 2017-11-12 19:26 | NUR ---
RECEIVED REPORT FORM DICK ROWLAND AT BEDSIDE, PT IS LETHARGIC, NONVERBAL, NOT ABLE TO FOLLOW COMMANDS, VSS, FLACC 0, ETT TO VENT WITH SETTING OF AC/VC FIO2 35, VT 450, R 12, PEEP 5, RHONCHI LUNG SOUNDS, SR ON BUMPER MACHINE OPERATOR, SOFT ABDOMEN WITH HYPOACTIVE BOWEL SOUNDS, NGT TO RIGHT NARES, NPO EXCEPT MEDS AT THIS TIME, POSITIVE PLACEMENT, WALLIS CATHETER IN PLACE WITH CLEAR YELLOW URINE NOTED, SKIN IS WARM AND DRY TO TOUCH, MULTIPLE SKIN TEARS NOTED, SURGICAL WOUND SITE TO ABDOMEN, COVERED WITH DRESSING, TWO MANDA DRAIN NOTED. GENERALIZED +2 PITTING EDEMA AND WEEPING NOTED, SEVERE WEAKNESS TO ALL EXTREMITIES, MONIKA CATHETER TO LEFT IJ, SL, PICC LINE TO LEFT UPPER ARM, RUNNING LEVOPHED AT 6MCG/MIN, AND TPN AT 60ML/HR. HOB ELEVATED 30 DEGREES, SAFETY PRECAUTION IN PLACE, WILL CONTINUE TO MONITOR.
--- NOTE | 2017-11-12 20:30 | NUR ---
NO S/S OF DISTRESS, ORAL CARE PROVIDED, POSITION CHANGED FOR OFF LOAD PRESSURE, SCHEDULED MEDICATION GIVEN, PT TOLERATED WELL.
[2017-11-12] MEDS: DEXTROSE 50% 720 ML, AMINO ACIDS 8.5% 720 ML IV SCH ×2 (20:32)
[2017-11-12] MEDS: lamoTRIgine 25 MG TAB PO SCH (20:40)
[2017-11-12] MEDS: MICAFUNGIN SODIUM 100 MG in NACL 0.9% 100 ML IV SCH (20:54)
--- NOTE | 2017-11-12 22:00 | NUR ---
NO CHANGE OF CONDITION AT THIS TIME, VSS, FLACC 0, POSITION CHANGED FOR OFF LOAD PRESSURE.
--- NOTE | 2017-11-12 22:33 | NUR ---
DR. MAURICIO CAME IN TO SEE PT AT BEDSIDE, NO NEW ORDER AT THIS TIME.
[2017-11-13] VITALS (29 sets, daily range): BP systolic 88–126; BP diastolic 48–82
--- NOTE | 2017-11-13 | NUR ---
PT IS ASLEEP IN BED, VSS, FLACC 0, ORAL CARE PROVIDED, POSITION CHANGED FOR OFF LOAD PRESSURE.
--- NOTE | 2017-11-13 00:30 | NUR ---
PT BP STABLE, STOPPED LEVOPHED DRIP AND WILL CONTINUE TO MONITOR.
--- NOTE | 2017-11-13 02:15 | NUR ---
NO CHANGE OF CONDITION AT THIS TIME, POSITION CHANGED FOR OFF LOAD PRESSURE. VSS
--- NOTE | 2017-11-13 04:00 | NUR ---
AM CARE AND F/C CARE PROVIDED, ORAL CARE PERFORMED, POSITION CHANGED FOR OFF LOAD PRESSURE. VSS.
[2017-11-13 05:12] LABS: HEMATOCRIT 27.4 % (36-52); HEMOGLOBIN 9.2 g/dL (12.0-18.0); MEAN CORPUSCULAR HEMOGLOBIN 31 pg (27-31); MEAN CORPUSCULAR HGB CONC 34 g/dL (33-37); MEAN CORPUSCULAR VOLUME 92 fL (80-94); RED BLOOD CELL COUNT(AUTO) 2.98 MIL/uL (4.20-6.10); RED CELL DISTRIBUTION WIDTH 14.2 % (11.6-13.7); WHITE BLOOD COUNT (AUTO) 5.9 K/uL (4.8-10.8)
[2017-11-13] MEDS: BLOOD GLUCOSE MONITORING 1 DEV DEV MC SCH ×4 (05:57→23:57)
[2017-11-13] MEDS: INSULIN LISPRO SLIDING SCALE 100 UNITS/ML VIAL SUBQ PRN ×3 (05:58→23:58)
[2017-11-13 06:00] LABS: ANION GAP 17.2 (8-16); CARBON DIOXIDE 25.5 mmol/L (21-32); CREATININE 2.4 mg/dL (0.7-1.3); POTASSIUM 4.7 mmol/L (3.5-5.1)
--- NOTE | 2017-11-13 06:00 | NUR ---
NO CHANGE OF CONDITION, VSS, POSITION CHANGED FOR OFF LOAD PRESSURE.
[2017-11-13 06:07] LABS: MAGNESIUM 2.1 mg/dL (1.8-2.4); PHOSPHORUS 3.7 mg/dL (2.5-4.9)
--- NOTE | 2017-11-13 06:30 | NUR ---
PT HAD A LARGE DARK COLORED LOOSE STOOL, JJ CARE PROVIDED.
[2017-11-13 07:02] LABS: PLATELET COUNT (AUTO) 26 K/uL (140-450)
[2017-11-13 07:03] LABS: CORRECTED WHITE BLOOD COUNT 5.6 K/uL (4.5-11.0)
[2017-11-13 07:05] LABS: LYMPHOCYTES % (MANUAL) 5 % (20-46); MONOCYTES % (MANUAL) 3 % (5-12)
--- NOTE | 2017-11-13 07:17 | NUR ---
REPORT GIVEN TO DICK ROWLAND AT BEDSIDE FOR CONTINUE OF CARE, PT IS IN STABLE CONDITION AT THIS TIME.
--- NOTE | 2017-11-13 07:17 | NUR ---
RECEIVED REPORT FROM NIGHT RN FOR CONTINUITY OF CARE. PATIENT ON ETT TO VENT FI02 35%, TV 450, R 12 AND PEEP 5. PATIENT ASLEEP AT THIS TIME, BUT AROUSABLE BY NAME. SKIN WARM TO TOUCH WNL, TOENAILS, WNL, +2 PITTING EDEMA, FINE HAIR GROWTH, MULTIPLE SKIN TEARS TO BUE AND BLE, MULTIPLE ECCHYMOSIS TO CHEST, ABDOMEN, BUE, UNABLE TO PALPATE BILATERAL PEDAL PULSES DUE TO EDEMA. FC IN PLACE TO YELLOW URINE IN MODERATE AMOUNT. LIJ MONIKA CATHETER WITH PIG TAIL AND TASNEEM PICC LINE PATENT AND INTACT. RIGHT NARES NGT TO LOW INTERMITTENT SUCTION. MIDLINE ABDOMEN SURGICAL INCISION NOTED WITH DRESSING DRY AND INTACT, X2 MANDA DRAINS NOTED. CALL LIGHT WITHIN REACH. SAFETY PRECAUTION IN PLACE. WILL CONTINUE TO MONITOR PATIENT.
[2017-11-13] MEDS: ALBUTEROL SULFATE/IPRATROPIU 3 ML SOL IH SCH ×4 (07:40→19:34)
--- NOTE | 2017-11-13 07:50 | NUR ---
RECEIVED INTUBATED PT W/7.5 ETT SECURED @23 TEETH/GUMS ON VENT. VENTILATOR SETTINGS AC 10, VT 450, PEEP 5 AND FIO2 35%. PT IS ASLEEP AT THIS TIME AND IS NOT SOB OR IN RESPIRATORY DISTRESS. PT SUCTIONED OBTAINED SCANT AMOUNT OF THICK WHITE SECRETIONS, AIRWAY IS PATENT. VENT IS PLUGGED INTO A RED OUTLET WITH ALARMS ON AND FUNCTIONING .WILL CONTINUE TO MONITOR.
--- NOTE | 2017-11-13 07:50 | NUR ---
DR. ARGUETA AND GROUP ROUNDING ON PATIENT. UPDATED OF PATIENT'S CONDITION. WILL FOLLOW UP WITH ORDERS.
--- NOTE | 2017-11-13 07:51 | NUR ---
DR ARGUETA AND RESIDENT PHYSICIAN'S ROUNDING N THE PATIENT. WILL FOLLOW UP WITH ORDERS.
--- NOTE | 2017-11-13 08:30 | NUR ---
RESIDENT PHYSICIAN, DR. DE LA CRUZ MADE AWARE OF PATIENT'S PLATELET LEVEL 26. WILL FOLLOW UP WITH ORDERS
[2017-11-13] MEDS: FUROSEMIDE 40 MG/4 ML VIAL IVP SCH (09:00)
[2017-11-13] MEDS: LACTOBACILLUS RHAMNOSUS GG 1 EACH CAP PO SCH (09:52)
[2017-11-13] MEDS: HYDROCORTISONE NA SUCC 100 MG/2 ML VIAL IV SCH ×2 (09:52→20:43)
[2017-11-13] MEDS: PANTOPRAZOLE 40 MG INJ VIAL IVP SCH ×2 (09:53→20:43)
[2017-11-13] MEDS: FERROUS GLUCONATE 324 MG TAB PO SCH (09:53)
[2017-11-13] MEDS: ATORVASTATIN 20 MG TAB PO SCH (09:53)
[2017-11-13] MEDS: HYDROXYCHLOROQUINE 200 MG TAB PO SCH (09:54)
[2017-11-13] MEDS: DOCUSATE 100 MG/10 ML UDC GT SCH ×2 (09:54→20:44)
[2017-11-13] MEDS: MEROPENEM 500 MG in NACL 0.9% 50 ML IV SCH ×2 (09:54→20:06)
[2017-11-13] MEDS: CALCIUM ACETATE 667 MG TAB NG SCH ×3 (09:54→16:38)
[2017-11-13] MEDS: ASCORBIC ACID 500 MG TAB PO SCH (09:55)
--- NOTE | 2017-11-13 12:00 | NUR ---
DR. MATA IN, SEEN AND EXAMINED PATIENT. WILL FOLLOW UP WITH NEW ORDERS.
--- NOTE | 2017-11-13 12:15 | NUR ---
DIALYSIS STARTED AT THIS TIME BY HEALTH INFORMATION MANAGEMENT DIRECTOR.
[2017-11-13] MEDS ORDERED: ALBUMIN HUMAN 25% 100 ML IV SCH (12:30)
--- NOTE | 2017-11-13 12:45 | NUR ---
ALBUMIN GIVEN BY DIALYSIS NURSE DURING DIALYSIS.
[2017-11-13] MEDS ORDERED: fentaNYL 1 MG in NACL 0.9% 80 ML IV PRN (13:30)
--- NOTE | 2017-11-13 13:34 | NUR ---
FAXED CONCURRENT REVIEW TO [facility] [phone] PHONE [phone] JULISA FAXED CONCURRENT REVIEW TO [facility] [phone] PHONE [phone] PADMA [id number]
--- NOTE | 2017-11-13 14:05 | NUR ---
VENT CHECK COMPLETED. PT NOT SOB AND NOT IN RESPIRATORY DISTRESS AT THIS TIME. PT IS RECEIVED DIALYSIS WITH NURSE BEDSIDE. WILL CONTINUE TO MONITOR.
[2017-11-13] MEDS ORDERED: MIDAZOLAM 2 MG/2 ML VIAL IVP SCH (15:34)
--- NOTE | 2017-11-13 15:45 | NUR ---
DIALYSIS DONE BY SUBSCRIPTION CLERK. ZERO OUT. PATIENT TOLERATED PROCEDURE WELL.
--- NOTE | 2017-11-13 16:45 | NUR ---
PATIENT HAD A LARGE BM, BLACK TO GREENISH IN COLOR. CLEANED AND REPOSITIONED AT THIS TIME. PATIENT TOLERATED WELL.
--- NOTE | 2017-11-13 17:45 | NUR ---
RESIDENT PHYSICIAN, DR OSULLIVAN UPDATED OF PATIENT'S STATUS. MADE AWARE OF MANDA DRAIN #2 OUTPUT OF 540 ML AND WY OF 110-120'S.
--- NOTE | 2017-11-13 18:00 | NUR ---
PATIENT'S AT BEDSIDE, UPDATED OF PATIENT'S STATUS.
--- NOTE | 2017-11-13 18:03 | NUR ---
VENT CHECK COMPLETED. VENT ALARMS REMAIN ON AND FUNCTIONING. ETT IS SECURE WITH A PATENT AIRWAY. PT IS NOT IN ANY DISTRESS AT THIS TIME.
--- NOTE | 2017-11-13 18:30 | NUR ---
DR. SERRANO REGARDING MANDA DRAIN #2 OUTPUT OF 540. NO ORDERS MADE AT THIS TIME.
--- NOTE | 2017-11-13 19:23 | NUR ---
REPORT GIVEN TO NIGHT RN FOR CONTINUITY OF CARE. PATIENT IN STABLE CONDITION.
--- NOTE | 2017-11-13 19:35 | NUR ---
RECEIVED REPORT FROM JANETT JENNINGS. PATIENT IS [employer] 8. PATIENT IS ETT TO VENT WITH SETTINGS OF TV 450, FIO2 35%, AC 10, AND PEEP 5. BREATH SOUNDS ARE COARSE UPON AUSCULTATION. THERE IS A RIJ MONIKA CATHETER WITH PIGTAIL FOR HD. PATIENT HAS A PICC LINE IN THE TASNEEM RECEIVING TPN AT 60 ML/HR AND NS AT 5 ML/HR TKO. GENERALIZED EDEMA AND BRUISING NOTED. THERE IS A NGT IN THE RIGHT NARES CONNECTED TO LOW INTERMITTENT SUCTIONING. PATIENT HAS TWO MANDA DRAINS ON THE LEFT LATERAL OF ABDOMEN S/P EXPLORATORY LAP. HOB AT 30 DEGREES WITH BED IN LOWEST POSITION. CONTINUE TO MONITOR PATIENT.
[2017-11-13] MEDS: AMINO ACIDS 8.5% IV SCH ×3 (20:03)
[2017-11-13] MEDS: DEXTROSE 50% IV SCH ×3 (20:03)
[2017-11-13] MEDS: FAT EMULSION 20% IV SCH ×3 (20:03)
[2017-11-13] MEDS: lamoTRIgine 25 MG TAB PO SCH (20:44)
--- NOTE | 2017-11-13 20:50 | NUR ---
TOLERATED DUE MEDICATIONS. NO SIGNS OF RESPIRATORY DISTRESS NOTED. HOB AT 30 DEGREES WITH BED IN LOWEST POSITION. CONTINUE TO MONITOR PATIENT.
[2017-11-13] MEDS: MICAFUNGIN SODIUM 100 MG in NACL 0.9% 100 ML IV SCH (21:33)
--- NOTE | 2017-11-13 21:35 | NUR ---
DR. MAURICIO PRESENT ON UNIT. UPDATED MD WITH PATIENT'S STATUS. NO NEW ORDERS GIVEN AT THIS TIME.
--- NOTE | 2017-11-13 21:45 | NUR ---
VAP ORAL CARE RENDERED.
--- NOTE | 2017-11-13 22:15 | NUR ---
ORAL SUCTIONING PROVIDED. SMALL AMOUNT OF THICK CREAMY BLOOD TINGED SECRETIONS NOTED.
[2017-11-14] VITALS (23 sets, daily range): BP systolic 96–150; BP diastolic 58–90
[2017-11-14] MEDS: BLOOD GLUCOSE MONITORING 1 DEV DEV MC SCH ×4 (00:12→17:51)
--- NOTE | 2017-11-14 02:16 | NUR ---
MORNING CARE RENDERED. CHANGED GOWN AND LINENS. VAP ORAL CARE RENDERED. REPOSITIONED PATIENT FOR COMFORT. HOB AT 30 DEGREES WITH BED IN LOWEST POSITION. CONTINUE TO MONITOR PATIENT.
--- NOTE | 2017-11-14 04:28 | NUR ---
VSS AND PATIENT IS AFEBRILE. CONTINUE TO MONITOR PATIENT.
[2017-11-14 05:52] LABS: BASOPHILS % (AUTO) 0.7 % (0.0-2.0); HEMATOCRIT 32.1 % (36-52); HEMOGLOBIN 10.7 g/dL (12.0-18.0); LYMPHOCYTES # (AUTO) 0.1 K/uL (2.0-11.5); LYMPHOCYTES % (AUTO) 3.3 % (20.5-51.1); MEAN CORPUSCULAR HEMOGLOBIN 31 pg (27-31); MEAN CORPUSCULAR HGB CONC 34 g/dL (33-37); MEAN CORPUSCULAR VOLUME 92 fL (80-94); MONOCYTES % (AUTO) 0.7 % (1.7-9.3); NEUTROPHILS # (AUTO) 4.4 K/uL (1.8-7.7); NEUTROPHILS % (AUTO) 94.3 % (42.2-75.2); RED BLOOD CELL COUNT(AUTO) 3.49 MIL/uL (4.20-6.10); WHITE BLOOD COUNT (AUTO) 4.5 K/uL (4.8-10.8)
[2017-11-14 06:14] LABS: PLATELET COUNT (AUTO) 9 K/uL (140-450)
[2017-11-14 06:22] LABS: ANION GAP 15.2 (8-16); CARBON DIOXIDE 26.1 mmol/L (21-32); CREATININE 1.9 mg/dL (0.7-1.3); POTASSIUM 4.3 mmol/L (3.5-5.1)
[2017-11-14] MEDS: ALBUTEROL SULFATE/IPRATROPIU 3 ML SOL IH SCH ×4 (07:04→19:44)
--- NOTE | 2017-11-14 07:06 | NUR ---
RECEIVED PT ON CARESCAPE ON A/C 450 RR 10 PEEP5 FIO2 35 ALARMS ARE ON AND FUNCTIONAL BMV HOB PTS ET TUBE IS SIZE 7.5 24 CM PT IN HF ASLEEP BS DIMINSHED SX VENT PLUGGED INTO RED OUTLET NO DISTRESS NOTED Addendum: 11/14/17 at 08 by Ana Antonio RT HHN GIVEN I\L WITH 3MG DUONEB Addendum: 11/14/17 at 0824 by Ana Antonio RT SECURED 22 CM
--- NOTE | 2017-11-14 07:26 | NUR ---
SBAR GIVEN TO SAKINA RN AT BEDSIDE FOR CONTINUITY OF CARE.
--- NOTE | 2017-11-14 07:30 | NUR ---
RECEIVED REPORT FROM ADDICTION SPECIALIST RN. PT IS ASLEEP. OPENS EYES TO CALLING NAME AND LIGHT SHAKING. SINUE TACHY ON MONITOR. S1 +S2 HEARD. ETT TO VENT: AC12, FIO2 35%, VT 450, PEEP 5. COARSE BREATH SOUNDS AUSCULTATED. NO SOB NOTED. LEFT IJ MONIKA CATH WITH PIGTAIL FOR HD INTACT. PICC LINE TO LEFT UPPER ARM ASYMPTOMATIC, PATENT AND INTACT, RECEIVING TPN AT 60 ML/HR AND NORMAL SALINE AT 5 ML/HR. NGT TO RIGHT NARE IN PLACE AND CONNECTED TO SUCTION, PLACEMENT CHECKED. ABDOMEN SOFT AND ROUND, TWO MANDA DRAINS IN PLACE. ABDOMINAL DRESSING CLEAN, DRY AND INTACT. SEVERAL BRUISES THROUGHOUT BODY. BUE AND BLE EDEMATOUS. WALLIS CATH IN PLACE DRAINING URINE TO GRAVITY DRAINAGE BAG. SKIN IS WARM TO TOUCH. HOB 30 DEGREES AND CALL LIGHT WITHIN REACH. WILL CONTINUE TO MONITOR.
--- NOTE | 2017-11-14 08:19 | NUR ---
DR. SERRANO IN TO SEE AND EXAMINE PT. WILL FOLLOW UP ON ORDERS.
[2017-11-14] MEDS: CALCIUM ACETATE 667 MG TAB NG SCH ×3 (08:20→17:44)
[2017-11-14] MEDS: ATORVASTATIN 20 MG TAB PO SCH (08:20)
[2017-11-14] MEDS: PANTOPRAZOLE 40 MG INJ VIAL IVP SCH ×2 (08:21→20:17)
[2017-11-14] MEDS: HYDROCORTISONE NA SUCC 100 MG/2 ML VIAL IV SCH ×2 (08:21→20:18)
[2017-11-14] MEDS: LACTOBACILLUS RHAMNOSUS GG 1 EACH CAP PO SCH (08:21)
[2017-11-14] MEDS: DOCUSATE 100 MG/10 ML UDC GT SCH ×2 (08:21→20:17)
[2017-11-14] MEDS: MEROPENEM 500 MG in NACL 0.9% 50 ML IV SCH ×2 (08:22→20:18)
[2017-11-14] MEDS: ASCORBIC ACID 500 MG TAB PO SCH (08:23)
[2017-11-14] MEDS: FUROSEMIDE 40 MG/4 ML VIAL IVP SCH ×2 (08:32→20:17)
[2017-11-14] MEDS: HYDROXYCHLOROQUINE 200 MG TAB PO SCH (08:32)
--- NOTE | 2017-11-14 08:36 | NUR ---
PT'S GETTING TACHYCARDIC, HR 138. RESIDENT PHYSICIAN DR. SHAFFER MADE AWARE.
--- NOTE | 2017-11-14 09:00 | NUR ---
MEDICATIONS ADMINISTERED. PT TOLERATED WELL. WILL CONTINUE TO MONITOR.
--- NOTE | 2017-11-14 09:15 | NUR ---
DR. BHAVIN SHAFFER IN TO SEE PT AND ORDERED THAT PAIN MEDICATION TO BE GIVEN AT THIS TIME DUE TO INCREASING HR 135-141. PRIMARY NURSE AND CHARGE NURSE MADE AWARE. WILL CONTINUE TO MONITOR AND FOLLOW UP ON ORDERS. Addendum: 11/14/17 at 0925 by Brett Black RN DR. BHAVIN SHAFFER MADE AWARE OF ABNORMAL LAB RESULT WITH PLATELET 9.
--- NOTE | 2017-11-14 09:19 | NUR ---
PAIN MEDICATION GAVE ORDERED.
[2017-11-14] MEDS ORDERED: NACL 0.9% 1,000 ML IV SCH (09:40)
--- NOTE | 2017-11-14 13:40 | NUR ---
PLATELET TRANSFUSION COMPLETED. NO ADVERSE REACTIONS NOTED. VSS.
--- NOTE | 2017-11-14 13:54 | NUR ---
11/14/17 RD FOLLOW UP COMPLETED Please refer to nutrition assessment under care activity for estimated needs. Recommendations: 1.Continue current TPN as tolerated/indicated. 2. If pt continues on TPN please obtain a current Trig level If Trig level is >400 then only provide 250ml 20% IL once weekly to prevent essential fatty acid deficiency. 3.When medically able consider initiating TF with Novasource Renal goal rate will be 40ml/hr. Provides: 960ml, 1920kcals, 87g protein, 688ml free water. RD will follow up in 2-3 days; high risk. Eleonora Echols RD, [facility]
[2017-11-14 14:43] LABS: HEMATOCRIT 28.7 % (36-52); HEMOGLOBIN 9.6 g/dL (12.0-18.0); MEAN CORPUSCULAR HEMOGLOBIN 31 pg (27-31); MEAN CORPUSCULAR HGB CONC 34 g/dL (33-37); MEAN CORPUSCULAR VOLUME 93 fL (80-94); PLATELET COUNT (AUTO) 42 K/uL (140-450); RED BLOOD CELL COUNT(AUTO) 3.08 MIL/uL (4.20-6.10); RED CELL DISTRIBUTION WIDTH 15.3 % (11.6-13.7); WHITE BLOOD COUNT (AUTO) 4.2 K/uL (4.8-10.8)
--- NOTE | 2017-11-14 14:55 | NUR ---
US TO RIGHT UPPER THIGH/BUTTOCK DONE. PT TOLERATED WELL. NO DISTRESS NOTED. VITAL SIGNS STABLE. WILL CONTINUE TO MONITOR.
[2017-11-14 15:27] LABS: EOSINOPHILS % (MANUAL) 1 % (0-4); LYMPHOCYTES % (MANUAL) 6 % (20-46); MONOCYTES % (MANUAL) 4 % (5-12)
[2017-11-14] MEDS: MORPHINE SULFATE 2 MG/ML SYR IVP PRN ×2 (15:55→21:45)
--- NOTE | 2017-11-14 16:10 | NUR ---
PABLO JUDGE IN TO SEE AND EXAMINE PT. WILL FOLLOW UP WITH ORDERS.
--- NOTE | 2017-11-14 17:00 | NUR ---
RESIDENT PHYSICIAN DR. SHAFFER MADE AWARE OF INCREASED MANDA DRAINAGES. WILL FOLLOW UP ON ORDERS.
[2017-11-14] MEDS: INSULIN LISPRO SLIDING SCALE 100 UNITS/ML VIAL SUBQ PRN (17:52)
--- NOTE | 2017-11-14 18:15 | NUR ---
DR. OSULLIVAN IN TO SEE AND EXAMINE PT. WILL FOLLOW UP ON ORDERS.
--- NOTE | 2017-11-14 19:27 | NUR ---
REPORT GIVEN TO NIGHT NURSE FOR CONTINUITY OF CARE. PT IS IN STALE CONDITION.
--- NOTE | 2017-11-14 19:30 | NUR ---
RECEIVED REPORT FROM MORNING RN FOR CONTINUITY OF CARE. PT IN STABLE CONDITION. VS STABLE BUT HR IS AT 120S. PT AFEBRILE. ABLE TO OPEN EYES TO VOICE. NGT ON RIGHT NARES CONNECTED TO SUCTION. PLACEMENT CHECKED. ETT TO VENT WITH SETTINGS AC12, FIO2 35, TV 450, AND PEEP 5. NO SIGNS OF DISTRESS NOTED. LUNG SOUNDS COARSE. S1+S2 HEARD. SINUS TACHYCARDIA ON MONITOR. BOWEL SOUNDS HYPOACTIVE. ABDOMEN ROUND AND NONDISTENDED. WALLIS CATHETER IN PLACE AND DRAINING CLEAR YELLOW URINE. DRESSINGS ARE INTACT AND DRY. [address] LEFT IJ MONIKA CATH AND TASNEEM PICC LINE IN PLACE. BOTH LINES ARE PATENT AND ASYMPTOMATIC. PT HAS TPN RUNNING AT 60ML/HR. HOB AT 30 DEGREES. CALL LIGHT WITHIN REACH. ALL SAFETY PRECAUTIONS IN PLACE. WILL CONTINUE TO MONITOR PT.
[2017-11-14] MEDS: MICAFUNGIN SODIUM 100 MG in NACL 0.9% 100 ML IV SCH (20:18)
[2017-11-14] MEDS: lamoTRIgine 25 MG TAB PO SCH (20:18)
[2017-11-14] MEDS: DEXTROSE 50% IV SCH ×3 (20:19)
[2017-11-14] MEDS: AMINO ACIDS 8.5% IV SCH ×3 (20:19)
[2017-11-14] MEDS: FAT EMULSION 20% IV SCH ×3 (20:19)
--- NOTE | 2017-11-14 20:20 | NUR ---
SCHEDULED MEDICATIONS ADMINISTERED. NO ADVERSE SIDE EFFECT NOTED. VS STABLE AT THIS TIME. HOB 30 DEGREES. ALL SAFETY PRECAUTIONS IN PLACE. WILL CONTINUE TO MONITOR PT.
--- NOTE | 2017-11-14 23:48 | NUR ---
PT EYES CLOSED. DOES NOT APPEAR TO BE IN ANY PAIN. NO SIGNS OF DISTRESS NOTED. PT HAS URINE OUTPUT. YELLOW AND CLEAR URINE DRAINING. WILL CONTINUE TO MONITOR PT.
[2017-11-15] VITALS (41 sets, daily range): BP systolic 72–121; BP diastolic 48–88
--- NOTE | 2017-11-15 02:35 | NUR ---
PT AWAKE. EYES ARE OPEN AND ABLE TO ANSWER QUESTIONS BY NODDING. NO SIGNS OF DISTRESS NOTED. PT CALM AND NOT TRYING TO PULL ON TUBES. VS STABLE AT THIS TIME. SINUS TACHYCARDIA ON MONITOR. CALL LIGHT WITHIN REACH. ALL SAFETY PRECAUTIONS IN PLACE. WILL CONTINUE TO MONITOR PT.
--- NOTE | 2017-11-15 04:20 | NUR ---
PM CARE AND WALLIS CATHETER CARE PROVIDED. PT TOLERATED BEING TURNED AND REPOSITIONED. BUE WOUND DRESSINGS SOAKED. BUE SKIN TEARS CLEANED AND DRESSED. PT HAD NO BM IN SHIFT. PT HAS URINE OUTPUT. VS STABLE AT THIS TIME. CURRENTLY NO CHANGE IN CONDITION. CALL LIGHT WITHIN REACH. ALL SAFETY PRECAUTIONS IN PLACE. WILL CONTINUE TO MONITOR PT.
[2017-11-15] MEDS: BLOOD GLUCOSE MONITORING 1 DEV DEV MC SCH ×4 (05:47→23:49)
[2017-11-15] MEDS: INSULIN LISPRO SLIDING SCALE 100 UNITS/ML VIAL SUBQ PRN ×2 (05:49→12:23)
--- NOTE | 2017-11-15 05:54 | NUR ---
DR. SHAFFER AT BEDSIDE TO SEE PT. WILL FOLLOW-UP WITH ANY NEW ORDER
[2017-11-15 06:18] LABS: HEMATOCRIT 30.5 % (36-52); HEMOGLOBIN 10.1 g/dL (12.0-18.0); MEAN CORPUSCULAR HEMOGLOBIN 32 pg (27-31); MEAN CORPUSCULAR HGB CONC 33 g/dL (33-37); MEAN CORPUSCULAR VOLUME 96 fL (80-94); RED BLOOD CELL COUNT(AUTO) 3.18 MIL/uL (4.20-6.10); RED CELL DISTRIBUTION WIDTH 17.9 % (11.6-13.7); WHITE BLOOD COUNT (AUTO) 3.4 K/uL (4.8-10.8)
[2017-11-15 06:20] LABS: PLATELET COUNT (AUTO) 13 K/uL (140-450)
[2017-11-15 06:27] LABS: MAGNESIUM 2.8 mg/dL (1.8-2.4); PHOSPHORUS 6.4 mg/dL (2.5-4.9)
[2017-11-15] MEDS: ALBUTEROL SULFATE/IPRATROPIU 3 ML SOL IH SCH ×4 (06:59→20:02)
--- NOTE | 2017-11-15 06:59 | NUR ---
REC'D PT ON CARESCAPE VENT SETTINGS AC 12 VT 450 PEEP 5 FIO2 35% ALARMS ON AND FUNCTIONING PROPERLY, AMBU BAG AT SIDE OF VENT AND VENT IS PLUGGED INTO RED OUTLET, I\L TX GIVEN WITH DUONEB 3ML WITH NO ADVERSE REACTION POST TX, B\S ARE DIMINISHED BILATERALLY, PT IS ORALLY INTUBATED WITH 7.5 ET TUBE AT 22 CM AND SKIN INTEGRITY IS INTACT AND PT IS SLEEPING
--- NOTE | 2017-11-15 07:08 | NUR ---
REPORT GIVEN TO MORNING RN FOR CONTINUITY OF CARE. PT IN STABLE CONDITION AT THIS TIME.
--- NOTE | 2017-11-15 07:15 | NUR ---
REPORT GIVEN TO MORNING RN FOR CONTINUITY OF CARE. VS STABLE AT THIS TIME. PT IN STABLE CONDITION
--- NOTE | 2017-11-15 07:30 | NUR ---
RECEIVED REPORT FROM FUEL HANDLER RN. PT IS AROUSABLE TO CALLING NAME. AFEBRILE. PT C/O PAIN 04/20. SINUS TACHY ON MONITOR. S1 +S2 HEARD. PT IS ETT TO VENT: AC12, FIO2 35%, VT 450, PEEP 5. BREATH SOUNDS COARSE AND DIMINISHED LOWER LOBES. NO SOB NOTED. PICC LINE TO LEFT UPPER ARM ASYMPTOMATIC, PATENT AND INTACT, FLOWING TPN AT 60 ML/HR AND NORMAL SALINE AT 5 ML/HR TKO. LEFT IJ MONIKA CATH WITH PIGTAIL FOR HD INTACT. NGT TO RIGHT NARE IN PLACE AND CONNECTED TO LOW SUCTION, PLACEMENT CONFIRMED. ABDOMEN SOFT AND ROUND, TWO MANDA DRAINS IN PLACE. ABDOMINAL DRESSING CLEAN, DRY AND INTACT. SEVERAL BRUISES THROUGHOUT BODY. +2 EDEMA TO BUE/BLE NOTED. WALLIS CATH IN PLACE DRAINING DARK YELLOW. SKIN IS WARM TO TOUCH. BED IN LOWEST POSITION, HOB 30 DEGREES AND CALL LIGHT WITHIN REACH. WILL CONTINUE TO MONITOR.
[2017-11-15 07:34] LABS: BASOPHILS % (MANUAL) 0 % (0-2); EOSINOPHILS % (MANUAL) 1 % (0-4); LYMPHOCYTES % (MANUAL) 4 % (20-46); MONOCYTES % (MANUAL) 2 % (5-12)
[2017-11-15] MEDS: MORPHINE SULFATE 2 MG/ML SYR IVP PRN ×4 (07:50→21:29)
[2017-11-15] MEDS: PANTOPRAZOLE 40 MG INJ VIAL IVP SCH ×2 (08:20→20:38)
[2017-11-15] MEDS: CALCIUM ACETATE 667 MG TAB NG SCH ×3 (08:20→16:32)
[2017-11-15] MEDS: ASCORBIC ACID 500 MG TAB PO SCH (08:21)
[2017-11-15] MEDS: ATORVASTATIN 20 MG TAB PO SCH (08:21)
[2017-11-15] MEDS: DOCUSATE 100 MG/10 ML UDC GT SCH ×2 (08:21→20:38)
[2017-11-15] MEDS: HYDROCORTISONE NA SUCC 100 MG/2 ML VIAL IV SCH ×2 (08:21→20:38)
[2017-11-15] MEDS: LACTOBACILLUS RHAMNOSUS GG 1 EACH CAP PO SCH (08:21)
[2017-11-15] MEDS: HYDROXYCHLOROQUINE 200 MG TAB PO SCH (08:22)
[2017-11-15] MEDS: FUROSEMIDE 40 MG/4 ML VIAL IVP SCH ×2 (08:22→20:39)
[2017-11-15 08:49] LABS: ANION GAP 17.9 (8-16); CARBON DIOXIDE 23.4 mmol/L (21-32); CREATININE 2.2 mg/dL (0.7-1.3); POTASSIUM 5.3 mmol/L (3.5-5.1)
[2017-11-15] MEDS ORDERED: ALBUMIN HUMAN 25% 200 ML IV SCH (08:50)
[2017-11-15] MEDS: MEROPENEM 500 MG in NACL 0.9% 50 ML IV SCH ×2 (09:12→20:27)
[2017-11-15] MEDS: FERROUS GLUCONATE 324 MG TAB PO SCH (09:12)
--- NOTE | 2017-11-15 09:15 | NUR ---
PT RECEIVING HEMODIALYSIS. NO S/SX OF DISTRESS AT THIS TIME. SUPERVISOR FRAMING MILL WILL NOTIFY WALL ATTENDANT OF DECREASED BP. WILL FOLLOW UP WITH ORDERS.
--- NOTE | 2017-11-15 09:18 | NUR ---
VENT CHECK, PT RECEIVING DIALYSIS
[2017-11-15] MEDS ORDERED: ALBUMIN HUMAN 25% 50 ML IV ONE (09:25)
[2017-11-15] MEDS ORDERED: NACL 0.9% 1,000 ML IV SCH ×2 (09:25→22:00)
--- NOTE | 2017-11-15 10:43 | NUR ---
DR. MAURICIO AT BEDSIDE TO SEE PT. WILL FOLLOW UP ON ORDERS.
--- NOTE | 2017-11-15 11:02 | NUR ---
VENT CHECK, PT STILL RECEIVING DAILYSIS AND NO HHN GIVEN PT IS SLEEPING WITH NO SIGNS OF DISTRESS NOTED
--- NOTE | 2017-11-15 12:30 | NUR ---
HEMODIALYSIS COMPLETED. PT TOLERATED WELL. VITAL SIGNS STABLE.
--- NOTE | 2017-11-15 13:17 | NUR ---
VENT CHECK, NO SXN NEEDED AIRWAY IS PATENT AND PT IS GETTING CLEANED
--- NOTE | 2017-11-15 13:30 | NUR ---
CLEANED AND REPOSITIONED PT. NO S/SX OF DISTRESS NOTED. VITAL SIGNS STABLE. SAFETY PRECAUTIONS IN PLACE. WILL CONTINUE TO MONITOR.
[2017-11-15 14:22] LABS: ANION GAP 15.8 (8-16); CARBON DIOXIDE 24.7 mmol/L (21-32); CREATININE 1.4 mg/dL (0.7-1.3); POTASSIUM 3.5 mmol/L (3.5-5.1)
[2017-11-15 14:23] LABS: MAGNESIUM 1.6 mg/dL (1.8-2.4); PHOSPHORUS 2.7 mg/dL (2.5-4.9)
--- NOTE | 2017-11-15 14:56 | NUR ---
VENT CHECK, I\L TX GIVEN WITH DUONEB 3ML WITH NO ADVERSE REACTIO POST TX B\S ARE DIMINISHED AIRWAY IS PATENT AND PT IS SLEEPING
--- NOTE | 2017-11-15 15:15 | NUR ---
NO CHANGE OF CONDITION AT THIS TIME. PT IS RESTING COMFORTABLY. VITAL SIGNS STABLE. FLACC 0. WILL CONTINUE TO MONITOR.
--- NOTE | 2017-11-15 17:18 | NUR ---
PABLO JUDGE AT BEDSIDE TO SEE PT. WILL FOLLOW UP ON ORDERS.
--- NOTE | 2017-11-15 17:30 | NUR ---
LEFT UPPER ARM WHERE PICC LINE SITE LOCATES LOOKS SWOLLEN AND BIGGER THAN RIGHT UPPER ARM. RESIDENT PHYSICIAN DR. OSULLIVAN AT BEDSIDE AND MADE AWARE. WILL CONTINUE TO MONITOR.
[2017-11-15] MEDS ORDERED: NACL 0.9% 500 ML IV SCH (17:50)
[2017-11-15] MEDS ORDERED: MORPHINE SULFATE 2 MG/ML SYR IVP SCH (17:50)
--- NOTE | 2017-11-15 19:00 | NUR ---
DR. OSULLIVAN MADE AWARE OF INCREASED DARK COLORED NG TUBE DRAINAGE. WILL FOLLOW UP ON ORDERS.
--- NOTE | 2017-11-15 19:30 | NUR ---
RECEIVED REPORT FROM MORNING SHIFT RN. PRESLEY. PT IS IN ASLEEP, AROUSABLE TO VOICE, ABLE TO ANSWER SIMPLE QUESTIONS. NO FEVER, SINUS TACHY ON MONITOR, PULSE 130'S. S1 +S2 HEARD. PT IS ETT TO VENT: AC12, FIO2 35%, VT 450, PEEP 5. BILATERAL BREATH SOUNDS COARSE. NO SOB NOTED. PICC LINE TO LEFT UPPER ARM ASYMPTOMATIC, PATENT AND INTACT, ON TPN AT 60 ML/HR AND NORMAL SALINE AT 5 ML/HR TKO. LEFT IJ MONIKA CATH WITH PIGTAIL FOR HD INTACT AND PATENT. NGT TO RIGHT NARE IN PLACE AND CONNECTED TO LOW SUCTION DRAINING RED COLOR SECRETION TO SUCTION, PLACEMENT CONFIRMED. ABDOMEN SOFT AND ROUND, TWO MANDA DRAINS IN PLACE. ACTIVE BOWEL SOUND IS PRESENT AT ALL 4QUADS. +3 EDEMA TO BUE/BLE NOTED. WALLIS CATH IN PLACE DRAINING YELLOW COLOR URINE. SKIN IS WARM TO TOUCH. BED IN LOWEST POSITION, HOB 30 DEGREES AND CALL LIGHT WITHIN REACH. WILL CONTINUE TO MONITOR.
--- NOTE | 2017-11-15 19:31 | NUR ---
REPORT GIVEN TO NIGHT NURSE FOR CONTINUITY OF CARE. NO ACUTE DISTRESS AT THIS TIME.
--- NOTE | 2017-11-15 20:12 | NUR ---
RECEIVED PT STABLE ON VENT SUPPORT AT DOCUMENTED SETTINGS, SUCTIONED SCANT AMOUNTS OF THIN CLEAR WHITE SECRETIONS, HHN TX GIVEN, TOLERATED WELL, NO RESP DISTRESS OR SOB NOTED AT THIS TIME, FOUND 7.5 ETT SECURED AND PATENT AT 21 CM AT LIP, ALARMS SET AND AUDIBLE, AMBU BAG AT BEDSIDE, VENT PLUGGED INTO RED OUTLET, WILL CONTINUE TO MONITOR.
[2017-11-15] MEDS: NOREPINEPHRINE 16 MG in DEXTROSE 5% 250 ML IV PRN ×2 (20:13→20:23)
[2017-11-15] MEDS: DEXTROSE 50% IV SCH ×3 (20:15)
[2017-11-15] MEDS: AMINO ACIDS 8.5% IV SCH ×3 (20:15)
[2017-11-15] MEDS: FAT EMULSION 20% IV SCH ×3 (20:15)
--- NOTE | 2017-11-15 20:15 | NUR ---
STARTED LEVOPHED DRIP 2MCG/MIN AT 2012 D/T BP DOWN TO 77/46.
--- NOTE | 2017-11-15 20:25 | NUR ---
LEVOPHED TITRATED UP TO 4MCG/MIN D/T BP 76/44.
[2017-11-15] MEDS: lamoTRIgine 25 MG TAB PO SCH (20:39)
--- NOTE | 2017-11-15 20:55 | NUR ---
LEVOPHED TITRATED UP TO 8MCG/MIN D/T BP 79/57.
[2017-11-15] MEDS: MICAFUNGIN SODIUM 100 MG in NACL 0.9% 100 ML IV SCH (21:00)
--- NOTE | 2017-11-15 21:15 | NUR ---
DR. HUNTER AT BEDSIDE TO CHECK THE PT, WILL FOLLOW THE ORDER.
--- NOTE | 2017-11-15 21:18 | NUR ---
PATIENT IS STILL TACHYCARDEIC HR 141/MIN AND NOTED WITH RED TO BLACKISH GASTRIC OUTPUT FROM THE NGT; REFERRED TO DR. OSULLIVAN ; CAME IN TO SEE THE PATIENT.
--- NOTE | 2017-11-15 21:30 | NUR ---
ADMINISTERED MORPHINE 2MG VIA IV PUSH D/T PT COMPLAINED ABOUT ABDOMINAL PAIN.
--- NOTE | 2017-11-15 21:45 | NUR ---
KUB IS DONE BY X-RAY TECH. DR. HUNTER AT BEDSIDE TO CHECK PT, WILL FOLLOW THE ORDER.
--- NOTE | 2017-11-15 21:50 | NUR ---
LEVOPHED TITRATED UP TO 10MCG/MIN D/T BP 72/48.
--- NOTE | 2017-11-15 22:10 | NUR ---
LEVOPHED TITRATED UP TO 12MCG/MIN D/T HYPOTENSION.
--- NOTE | 2017-11-15 22:20 | NUR ---
STARTED NS 1000ML BOLUS ORDERED FROM DR. HUNTER.
[2017-11-16] VITALS (101 sets, daily range): BP systolic 45–186; BP diastolic 30–134
--- NOTE | 2017-11-16 03:06 | NUR ---
LEVOPHED TITRATED UP TO 18MCG/MIN D/T HYPOTENSION. DR. HUNTER AT BEDSIDE TO CHECK THE PT. WILL FOLLOW THE ORDER.
--- NOTE | 2017-11-16 03:23 | NUR ---
LEVOPHED TITRATED UP TO 20MCG/MIN D/T HYPOTENSION. DR. HUNTER NOTIFIED.
--- NOTE | 2017-11-16 03:31 | NUR ---
LEVOPHED TITRATED UP TO 24MCG/MIN D/T HYPOTENSION.
[2017-11-16] MEDS ORDERED: NACL 0.9% 1,000 ML IV SCH ×2 (03:45→07:45)
[2017-11-16] MEDS ORDERED: DOPamine 400 MG/D5W PREMIX 250 ML IV SCH ×2 (03:45→17:05)
--- NOTE | 2017-11-16 03:50 | NUR ---
PATIENT IS VERY UNSTABLE, BP NOT PICKING UP AND BECAME UNRESPONSIVE; CALLED THE BY TELEPHONE 5X BUT SHE NEVER OVERLOCK OPERATOR THE PHONE; CALLED THE PATIENT'S COUSIN KRIS, LEFT A MESSAGE ON THE PHONE.
--- NOTE | 2017-11-16 04:00 | NUR ---
PATIENT'S COUSIN KRIS CAME IN AND VISIT THE PATIENT.
--- NOTE | 2017-11-16 04:03 | NUR ---
LEVOPHED TITRATED UP TO 28MCG/MIN D/T HYPOTENSION. DR. HUNTER NOTIFIED.
--- NOTE | 2017-11-16 04:10 | NUR ---
STARTED NS 1L BOLUS D/T LOW BP ORDERED FROM DR. HUNTER.
--- NOTE | 2017-11-16 04:55 | NUR ---
1 UNIT OF PLATELET TRANSFUSION STARTED AT 0440 ORDERED. NO REACTION NOTED. WILL CONTINUE TO MONITOR.
--- NOTE | 2017-11-16 05:15 | NUR ---
LEVOPHED TITRATED UP TO 30MCG/MIN D/T HYPOTENSION. AT BEDSIDE TO CHECK THE PT. WILL FOLLOW THE ORDER.
--- NOTE | 2017-11-16 05:34 | NUR ---
DOPAMINE DRIP STARTED WITH 5MCG/KG/MIN, 15.9ML/HR D/T HYPOTENSION ORDERED. WILL CONTINUE TO MONITOR.
[2017-11-16] MEDS: BLOOD GLUCOSE MONITORING 1 DEV DEV MC SCH ×3 (06:00→18:49)
[2017-11-16] MEDS: ALBUTEROL SULFATE/IPRATROPIU 3 ML SOL IH SCH ×4 (06:51→19:45)
--- NOTE | 2017-11-16 06:52 | NUR ---
RECEIVED PT ON [place] ON A/C 12 VT450 PEEP5 FIO2 100 ALARMS ARE ON AND AUDIBLE PTS ET TUBE SIZE 7.5 IS SECURE 21CM ANCHOR FAST IN PLACE BS CL\DIM ORALLY SX LG CHAVARRIA BMV HOB PT IN HF QUIET HHN WITHHELD DUE TO HIGH HEART RATE NO APPERNT DISTRESS VENT PLUGGED INTO RED OUTLET
--- NOTE | 2017-11-16 07:10 | NUR ---
RECEIVED PT ON [facility] ON [facility] I-TIME 0.85 RR 20 VT 45P PEEP5 FIO2 28 ALARMS ARE ON AND AUDIBLE PTS ET TUBE SIZE 8.0 IS SECURE 21CM ANCHOR FAST IN PLACE BS ASHLYN DONALDSON HHN GIVEN WITH 3M G DUKITTY NO APPARENT DISTRESS PT IN HF QUIET VENT PLUGGED INTO RED OUTLET Addendum: 11/16/17 at 0753 by Ana Antonio RT WRONG PT
--- NOTE | 2017-11-16 07:30 | NUR ---
REPORT GIVEN TO RONY.
--- NOTE | 2017-11-16 07:38 | NUR ---
PT SEEN BY DR CARDOZA AND RESIDENT GROUP. PLANNED TO START IV FLUIDS. WILL FOLLOW UP ON ORDER.
[2017-11-16] MEDS: CALCIUM ACETATE 667 MG TAB NG SCH ×3 (08:03→16:32)
[2017-11-16] MEDS: OCTREOTIDE ACETATE 1.25 MG in NACL 0.9% 250 ML IV SCH (08:14)
--- NOTE | 2017-11-16 09:06 | NUR ---
DECREASE FIO2 TO 90 SPO2 100
--- NOTE | 2017-11-16 09:30 | NUR ---
CALLED DR. DUNAWAY. MADE AWARE ABOUT PATIENT'S BP. OKAY TO GIVE LASIX.
--- NOTE | 2017-11-16 09:34 | NUR ---
CHEST X-RAY COMPLETED. WILL FOLLOW UP ON RESULT.
[2017-11-16] MEDS: DOCUSATE 100 MG/10 ML UDC GT SCH ×2 (09:50→20:33)
[2017-11-16] MEDS: HYDROCORTISONE NA SUCC 100 MG/2 ML VIAL IV SCH ×2 (09:51→20:32)
[2017-11-16] MEDS: MEROPENEM 500 MG in NACL 0.9% 50 ML IV SCH ×2 (09:51→20:31)
[2017-11-16] MEDS: LACTOBACILLUS RHAMNOSUS GG 1 EACH CAP PO SCH (09:52)
[2017-11-16] MEDS: PANTOPRAZOLE 40 MG INJ VIAL IVP SCH ×2 (09:52→20:33)
[2017-11-16] MEDS: ASCORBIC ACID 500 MG TAB PO SCH (09:53)
[2017-11-16] MEDS: ATORVASTATIN 20 MG TAB PO SCH (09:53)
[2017-11-16] MEDS: HYDROXYCHLOROQUINE 200 MG TAB PO SCH (09:53)
[2017-11-16] MEDS: FUROSEMIDE 40 MG/4 ML VIAL IVP SCH ×2 (09:54→20:33)
[2017-11-16] MEDS: NOREPINEPHRINE 16 MG in DEXTROSE 5% 250 ML IV PRN ×2 (10:27→20:30)
--- NOTE | 2017-11-16 10:40 | NUR ---
ET TUBE ADVANCED PER CXR TO 24 CM SECURED ANCHOR FAST BS EQUAL SP2 100 ON 90 STAT CXR ORDERED
--- NOTE | 2017-11-16 11:22 | NUR ---
PT RESTING IN BED. ST ON MONITOR. CONTINUE ON LEVOPHED DRIP. BP 104/95. RR 12. SPO2 100%. NO RESPIRATORY DISTRESS. NO CHANGE IN LOC NOTED. WILL CONTINUE TO MONITOR.
--- NOTE | 2017-11-16 11:26 | NUR ---
BP 92/77. CONTINUE ON LEVOPHED DRIP.
[2017-11-16] MEDS: INSULIN LISPRO SLIDING SCALE 100 UNITS/ML VIAL SUBQ PRN ×2 (11:36→18:47)
--- NOTE | 2017-11-16 11:41 | NUR ---
PT FAMILY AT BEDSIDE. DR. SEAY EXPLAINING PT CONDITION TO FAMILY. PT ON BEDSIDE ONMITOR. BP 105/60. HR 130, RR 13, SPO2 100. PT ON CONTINUOUS MONITORING.
--- NOTE | 2017-11-16 12:23 | NUR ---
ADVANCE ET TUBE TO [address] CARMEN KWOK PRESENT CONFIRMED BILATERAK BS CXR ORDERED
--- NOTE | 2017-11-16 12:32 | NUR ---
BP 104/72. PT ON CONTINUOUS MONITORING.
[2017-11-16 12:40] LABS: BASOPHILS # (AUTO) 0.1 K/uL (0.00-0.22); BASOPHILS % (AUTO) 0.9 % (0.0-2.0); HEMOGLOBIN 8.6 g/dL (12.0-18.0); LYMPHOCYTES # (AUTO) 0.2 K/uL (2.0-11.5); MONOCYTES # (AUTO) 0.1 K/uL (0.8-1.0)
[2017-11-16 12:43] LABS: CARBON DIOXIDE 20.5 mmol/L (21-32); POTASSIUM 5.5 mmol/L (3.5-5.1)
[2017-11-16 12:53] LABS: EOSINOPHILS % (AUTO) 0.2 % (0.0-4.0); HEMATOCRIT 25.6 % (36-52); LYMPHOCYTES % (AUTO) 4.2 % (20.5-51.1); MEAN CORPUSCULAR HEMOGLOBIN 31 pg (27-31); MEAN CORPUSCULAR HGB CONC 34 g/dL (33-37); MEAN CORPUSCULAR VOLUME 93 fL (80-94); MONOCYTES % (AUTO) 1.2 % (1.7-9.3); NEUTROPHILS # (AUTO) 5.3 K/uL (1.8-7.7); NEUTROPHILS % (AUTO) 93.5 % (42.2-75.2); PLATELET COUNT (AUTO) 43 K/uL (140-450); RED BLOOD CELL COUNT(AUTO) 2.74 MIL/uL (4.20-6.10); RED CELL DISTRIBUTION WIDTH 15.3 % (11.6-13.7); WHITE BLOOD COUNT (AUTO) 5.7 K/uL (4.8-10.8)
[2017-11-16 13:52] LABS: MAGNESIUM 1.9 mg/dL (1.8-2.4); PHOSPHORUS 6.5 mg/dL (2.5-4.9)
--- NOTE | 2017-11-16 14:03 | NUR ---
PT RESTING IN BED. CONTINUE ON LEVOPHED DRIP. DOPAMIN DRIP RUNNING AT 10 MCG/KG/MIN. WILL CONTINUE TO MONITOR.
--- NOTE | 2017-11-16 14:11 | NUR ---
SPO2 DROPPED DOWN TO 77%. RT ON BEDSIDE. MADE AWARE.
[2017-11-16] MEDS ORDERED: VANCOMYCIN PER PHARMACY MC PRN (14:45)
--- NOTE | 2017-11-16 14:55 | NUR ---
CALLED DR. DUNAWAY. MADE AWARE ABOUT PT CONDITION AND O2 DROPPED O2 SAT DOWN TO 76%. WILL BE IN TO ICU TO SEE PT.
--- NOTE | 2017-11-16 14:56 | NUR ---
BRYON WITHHEILD PULSE 147 Addendum: 11/16/17 at 1456 by Ana Antonio RT FIO2 100
--- NOTE | 2017-11-16 15:09 | NUR ---
SEEN BY DR. WHITE. WILL FOLLOW UP ON ORDER.
--- NOTE | 2017-11-16 15:12 | NUR ---
ABG ATTEMPTED UNABLE TO GET LOW BP
--- NOTE | 2017-11-16 15:21 | NUR ---
PT RESTING IN BED. UNRESPONSIVE. CONTINUOUS ON LEVOPHED AND DOPAMIN DRIP. HR 146, RR 15, BP 123/98, SPO2 100%. RT ON BEDSIDE. NO RESPIRATORY DISTRESS. NOTED. WILL CONTINUE TO MONITOR.
--- NOTE | 2017-11-16 15:44 | NUR ---
FAXED CONCURRENT REVIEW TO [facility] [phone] PHONE [phone] FAXED CONCURRENT REVIEW TO [facility] [phone] PHONE [phone] JULISA
[2017-11-16] MEDS ORDERED: VANCOMYCIN 1GM/DEXT 5% PREMIX 200 ML IV SCH (16:00)
--- NOTE | 2017-11-16 16:14 | NUR ---
ABG REPORTED TO DR MORALES LEAVE ET TUBE AND SETTINGS THEY ARE
[2017-11-16] MEDS ORDERED: SODIUM BICARBONATE 8.4% 50 MEQ in NACL 0.9% 1,000 ML IV SCH (17:00)
--- NOTE | 2017-11-16 17:00 | NUR ---
DR MORALES ADVANCED ET TUBE WITH BRONCH PT HAS MASS TRACHEAL DEVIATION SECURED 27 CM ANCHOR FAST NO CXR PER DR MORALES INCREASE RR TO 20 NO ABG Addendum: 11/16/17 at 1723 by Ana Antonio RT POSSIBLE MASS
--- NOTE | 2017-11-16 17:02 | NUR ---
PT RESTING IN BED. UNRESPONSIVE. HR 142, BP 115/61 RR 16 SPO2 99%. ON CONTINUOUS MONITORING.
--- NOTE | 2017-11-16 17:02 | NUR ---
DR. MORALES AND RT AT BEDSIDE FOR BRONCHOSCOPY. PROCEDURE ON PROCESS.
[2017-11-16] MEDS ORDERED: PHENYLEPHRINE 40 MG in NACL 0.9% 250 ML IV PRN (17:05)
[2017-11-16] MEDS ORDERED: SODIUM BICARBONATE 8.4% PFS 50 MEQ/50 ML SYR IVP SCH ×2 (17:15→17:26)
[2017-11-16] MEDS ORDERED: MORPHINE SULFATE 2 MG/ML SYR IVP PRN (17:40)
[2017-11-16] MEDS: PHENYLEPHRINE 40 MG in NACL 0.9% 250 ML IV PRN (19:18)
--- NOTE | 2017-11-16 19:25 | NUR ---
ENDORSED TO NOC SHIFT RN FOR CONTINUITY OF CARE. PT ON STABLE CONDITION.
--- NOTE | 2017-11-16 19:30 | NUR ---
RECEIVED REPORT FROM MORNING SHIFT RN. VÁZQUEZ. PT IS UNRESPONSIVE. NO FEVER, SINUS TACHY ON MONITOR, PULSE 130'S. S1 +S2 HEARD. PT IS ETT TO VENT: AC12, FIO2 100%, VT 450, PEEP 5. BILATERAL BREATH SOUNDS COARSE AND DIMINISHED. PICC LINE TO LEFT UPPER ARM AND CENTRAL LINE WITH MONIKA CATH WITH PIGTAIL FOR HD TO LEFT IJ ARE ASYMPTOMATIC, PATENT AND INTACT, ON TPN AT 60 ML/HR AND NS AT 75ML/HR, LEVOPHED, EVONNE SYNEPHRINE, SANDOSTATIN, SODIUM BICARBONATE DRIPS. NGT TO RIGHT NARE IN PLACE AND CONNECTED TO LOW SUCTION DRAINING RED COLOR SECRETION TO SUCTION, PLACEMENT CONFIRMED. ABDOMEN SOFT AND ROUND, TWO MANDA DRAINS IN PLACE. HYPOACTIVE BOWEL SOUND IS PRESENT AT ALL 4QUADS. +3 EDEMA TO BUE/BLE NOTED. WALLIS CATH IN PLACE DRAINING YELLOW COLOR URINE. SKIN IS WARM TO TOUCH. BED IN LOWEST POSITION, HOB 30 DEGREES AND CALL LIGHT WITHIN REACH. WILL CONTINUE TO MONITOR
--- NOTE | 2017-11-16 19:58 | NUR ---
PT RECEIVED WITH RESPIRATORY RATE OF 20 AND LIPLINE OF 25CM.
[2017-11-16] MEDS: lamoTRIgine 25 MG TAB PO SCH (20:33)
--- NOTE | 2017-11-16 21:00 | NUR ---
ADMINISTERED SCHEDULED MEDICATIONS ORDERED. NO ACUTE DISTRESS NOTED. PT IS UNRESPONSIVE AT THIS TIME. ST ON THE MONITOR. SBP IS ABOVE 90'S. WILL CONTINUE TO MONITOR.
--- NOTE | 2017-11-16 21:10 | NUR ---
LEVOPHED TITRATED DOWN TO 20MCG/MIN, 18.75ML/HR AT THIS TIME D/T HYPERTENSION.
[2017-11-16] MEDS: AMINO ACIDS 8.5% IV SCH ×3 (21:15)
[2017-11-16] MEDS: FAT EMULSION 20% IV SCH ×3 (21:15)
[2017-11-16] MEDS: DEXTROSE 50% IV SCH ×3 (21:15)
--- NOTE | 2017-11-16 21:51 | NUR ---
LEVOPHED TITRATED UP TO 24MCG/MIN, 22.5ML/HR D/T HYPOTENSION. WILL CONTINUE TO MONITOR.
[2017-11-16] MEDS: MICAFUNGIN SODIUM 100 MG in NACL 0.9% 100 ML IV SCH (22:03)
[2017-11-17] VITALS (92 sets, daily range): BP systolic 49–212; BP diastolic 32–131
--- NOTE | 2017-11-17 | NUR ---
BS CHECKED 259 NOTED, GIVEN INSULIN 6 UNITS ORDERED. NO ACUTE DISTRESS NOTED. PT IS UNRESPONSIVE.
[2017-11-17] MEDS: BLOOD GLUCOSE MONITORING 1 DEV DEV MC SCH ×5 (00:16→23:50)
[2017-11-17] MEDS: INSULIN LISPRO SLIDING SCALE 100 UNITS/ML VIAL SUBQ PRN ×4 (00:19→17:34)
--- NOTE | 2017-11-17 02:00 | NUR ---
PT IS UNRESPONSIVE. 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 BP IS STABLE, SBP ABOVE 100'S AT THIS TIME. NO ACUTE DISTRESS NOTED. WILL CONTINUE TO MONITOR.
--- NOTE | 2017-11-17 04:20 | NUR ---
ADMINISTERED PRN MORPHINE D/T PT KEEP BITING THE ET TUBE.
--- NOTE | 2017-11-17 05:25 | NUR ---
LEVOPHED TITRATED UP TO 30MCG/MIN, 28.12ML/HR D/T HYPOTENSION.
[2017-11-17 05:39] LABS: CREATININE 2.2 mg/dL (0.7-1.3)
[2017-11-17 05:42] LABS: ALBUMIN 1.3 g/dL (3.4-5.0); MAGNESIUM 1.8 mg/dL (1.8-2.4); PHOSPHORUS 6.8 mg/dL (2.5-4.9)
--- NOTE | 2017-11-17 06:00 | NUR ---
EVONNE SYNEPHRINE TITRATED UP TO 100MCG/MIN, 37.5ML/HR D/T HYPOTENSION. DR. DUNAWAY AT BEDSIDE TO CHECK THE PT. WILL FOLLOW THE ORDER.
[2017-11-17 06:06] LABS: ANION GAP 18.9 (8-16); CARBON DIOXIDE 20.1 mmol/L (21-32)
[2017-11-17] MEDS: PHENYLEPHRINE 40 MG in NACL 0.9% 250 ML IV PRN ×3 (06:59→19:56)
[2017-11-17] MEDS: ALBUTEROL SULFATE/IPRATROPIU 3 ML SOL IH SCH ×5 (07:10→19:16)
--- NOTE | 2017-11-17 07:10 | NUR ---
REC'D PT ON CARESCAPE VENT SETTINGS AC20 VT 450 PEEP 5 FIO2 100% ALARMS ON AND FUNCTIONING PROPERLY, ABMU BAG IS AT SIDE OF VENT AND VENT IS PLUGGED INTO RED OUTLET, NO HHN GIVEN DUE TO HR OR 122, B\S ARE DIMINISHED BILATERALLY, SXN PT SMALL AMT OF CREAM COLOR SECRETIONS, PT IS ORALLY INTUBATED WITH 7.5 ET TUBE SECURED AT 25 CM AT LIP AND SKIN INTEGRITY IS INTACT PT IS RESTING
--- NOTE | 2017-11-17 07:20 | NUR ---
REPORT GIVEN TO RATANA. JENNINGS.
--- NOTE | 2017-11-17 07:30 | NUR ---
RECEIVED REPORT FROM NIGHT NURSE. PT IS LETHARGIC AND UNRESPONSIVE. AFEBRILE. FLACC 0. SINUS TACHY ON MONITOR. S1, S2 HEARD. PT IS ETT TO VENT W/ SETTINGS AC 20, FIO2 100%, VT 450, PEEP 5. BILATERAL BREADTH SOUNDS COARSE. BREATHING IS EVEN AND UNLABORED. NGT IN PLACE TO RIGHT NARE CONNECTED TO LOW SUCTION, DRAINING DARK RED COLORED SECRETION. MONIKA CATH W/ PIG TAIL FOR DIALYSIS IN PLACE AT LEFT IJ, PICC LINE TO LEFT UPPER ARM ASYMPTOMATIC, PATENT AND INTACT. PT IS ON NORMAL SALINE AT 75 ML/HR, TPN AT 60 ML/HR, LEVOPHED DRIP AT 30 MCG/MIN, EVONNE-SYNEPHRINE DRIP AT 100 MCG/MIN, SANDOSTATIN DRIP AT 10 ML/HR, SODIUM BICARB AT 60 ML/HR. ABDOMEN SOFT, ROUND WITH HYPOACTIVE BOWEL SOUNDS, ABDOMINAL DRESSING CLEAN, DRY AND INTACT, W/ TWO MANDA DRAINS IN PLACE. WALLIS CATH IN PLACE, NO URINE NOTED IN DRAINAGE BAG. PENILE AND SCROTAL EDEMA NOTED. +3 EDEMA TO BUE AND BLE. SEVERAL SKIN TEAR, ECCHYMOSIS NOTED TO BUE. HOB 30 DEGREES. BED IN LOW POSITION AND CALL LIGHT WITHIN REACH. WILL CONTINUE TO MONITOR.
--- NOTE | 2017-11-17 08:02 | NUR ---
DR. RICE AND RESIDENT GROUP IN TO SEE PT. WILL FOLLOW UP ON ORDERS.
[2017-11-17] MEDS: NOREPINEPHRINE 16 MG in DEXTROSE 5% 250 ML IV PRN ×2 (08:16→18:52)
[2017-11-17] MEDS: OCTREOTIDE ACETATE 1.25 MG in NACL 0.9% 250 ML IV SCH (08:17)
[2017-11-17] MEDS: FERROUS GLUCONATE 324 MG TAB PO SCH (08:29)
[2017-11-17] MEDS: LACTOBACILLUS RHAMNOSUS GG 1 EACH CAP PO SCH (08:30)
[2017-11-17] MEDS: DOCUSATE 100 MG/10 ML UDC GT SCH ×2 (08:30→21:13)
[2017-11-17] MEDS: HYDROCORTISONE NA SUCC 100 MG/2 ML VIAL IV SCH ×2 (08:30→21:12)
[2017-11-17] MEDS: CALCIUM ACETATE 667 MG TAB NG SCH ×3 (08:30→17:30)
[2017-11-17] MEDS: PANTOPRAZOLE 40 MG INJ VIAL IVP SCH ×2 (08:30→21:12)
[2017-11-17] MEDS: MEROPENEM 500 MG in NACL 0.9% 50 ML IV SCH ×2 (08:31→21:13)
[2017-11-17] MEDS: ATORVASTATIN 20 MG TAB PO SCH (08:31)
[2017-11-17] MEDS: ASCORBIC ACID 500 MG TAB PO SCH (08:31)
[2017-11-17] MEDS: FUROSEMIDE 40 MG/4 ML VIAL IVP SCH ×2 (08:32→21:12)
[2017-11-17] MEDS: HYDROXYCHLOROQUINE 200 MG TAB PO SCH (08:32)
[2017-11-17] MEDS: MORPHINE SULFATE 2 MG/ML SYR IVP PRN ×2 (09:00→10:41)
--- NOTE | 2017-11-17 09:00 | NUR ---
MEDICATIONS ADMINISTERED. NO S/SX OF ACUTE DISTRESS NOTED. MORPHINE IV ADMINISTERED FOR RESTLESSNESS. WILL CONTINUE TO MONITOR.
--- NOTE | 2017-11-17 09:44 | NUR ---
VENT CHECK, NO SXN REQUIRED AT THIS TIME, AIRWAY IS PATENT
[2017-11-17] MEDS ORDERED: NACL 0.9% 2,000 ML IV SCH (10:00)
[2017-11-17] MEDS ORDERED: SODIUM BICARBONATE 8.4% 100 MEQ in NACL 0.9% 1,000 ML IV SCH (11:05)
--- NOTE | 2017-11-17 11:25 | NUR ---
VENT CHECK NO SXN NEEDED AIRWAY PATENT NO HHN GIVEN DUE TO HIGH HEART OF 124 NO SIGNS OF DISTRESS NOTED
--- NOTE | 2017-11-17 11:30 | NUR ---
PT SEEN BY DR. PAYNE. WILL FOLLOW UP ON ORDERS.
[2017-11-17 11:32] LABS: HEMATOCRIT 21.5 % (36-52); HEMOGLOBIN 7.1 g/dL (12.0-18.0); MEAN CORPUSCULAR HEMOGLOBIN 31 pg (27-31); MEAN CORPUSCULAR HGB CONC 33 g/dL (33-37); MEAN CORPUSCULAR VOLUME 94 fL (80-94); PLATELET COUNT (AUTO) 24 K/uL (140-450); RED BLOOD CELL COUNT(AUTO) 2.28 MIL/uL (4.20-6.10); RED CELL DISTRIBUTION WIDTH 15.9 % (11.6-13.7); WHITE BLOOD COUNT (AUTO) 6.5 K/uL (4.8-10.8)
[2017-11-17 11:34] LABS: ALBUMIN 1.3 g/dL (3.4-5.0); ANION GAP 19.7 (8-16); CREATININE 2.3 mg/dL (0.7-1.3); POTASSIUM 4.7 mmol/L (3.5-5.1); TOTAL BILIRUBIN 6.9 mg/dL (0.0-1.0)
[2017-11-17 11:38] LABS: LYMPHOCYTES % (MANUAL) 14 % (20-46); MONOCYTES % (MANUAL) 5 % (5-12)
[2017-11-17 11:39] LABS: CORRECTED WHITE BLOOD COUNT 6.1 K/uL (4.5-11.0)
[2017-11-17] MEDS ORDERED: SODIUM BICARBONATE 8.4% PFS 50 MEQ/50 ML SYR IVP SCH (11:42)
--- NOTE | 2017-11-17 12:10 | NUR ---
DR. PAYNE IN TO SEE AND EXAMINE PT. WILL FOLLOW UP ON ORDERS.
--- NOTE | 2017-11-17 12:20 | NUR ---
DR. MATA MADE AWARE OF PT'S DECREASED BLOOD PRESSURE BEFORE DIALYSIS. ORDER RECEIVED TO GIVE ALBUMIN. PER DR. MATA, DIALYSIS NURSE CAN STOP HD IF PT DOSE NOT TOLERATE.
--- NOTE | 2017-11-17 12:45 | NUR ---
DR. MATA IN TO SEE AND EXAMINE PT. WILL FOLLOW UP WITH NEW ORDERS.
--- NOTE | 2017-11-17 12:46 | NUR ---
DR. MATA MADE AWARE THAT PT HAS NO URINE OUTPUT.
--- NOTE | 2017-11-17 12:58 | NUR ---
HEMODIALYSIS STARTED. VITAL SIGNS STABLE. PT RECEIVING 1 UNIT PRBC AND ALBUMIN ORDERED DURING DIALYSIS. WILL CONTINUE TO MONITOR.
[2017-11-17] MEDS ORDERED: ALBUMIN HUMAN 25% 100 ML IV SCH (13:00)
--- NOTE | 2017-11-17 13:16 | NUR ---
vent check no sxn required airway is patent and pt is receiving dialysis at the time
[2017-11-17 13:59] LABS: PROTHROMBIN TIME 30.8 secs (10.8-13.4)
--- NOTE | 2017-11-17 14:04 | NUR ---
HEMODIALYSIS STOPPED FOR DECREASED BP OF 78/54. DR. MORALES AT BEDSIDE TO SEE AND EXAMINE PT. WILL FOLLOW UP ON ORDERS AND WILL CONTINUE TO MONITOR.
--- NOTE | 2017-11-17 14:46 | NUR ---
FAXED CONCURRENT REVIEW TO [facility] [phone] PHONE IRMA [phone] FAXED [facility]CURRENT REVIEW TO [facility] [phone] PHONE [phone] JULISA
--- NOTE | 2017-11-17 14:57 | NUR ---
POST DIALYSIS VITAL SIGNS STABLE. BP 133/96, HR 121, O2 96%, RR 20 AT THIS TIME. NO S/SX OF DISTRESS NOTED. SAFETY PRECAUTIONS IN PLACE. WILL CONTINUE TO MONITOR.
--- NOTE | 2017-11-17 15:25 | NUR ---
vent check no sxn needed airway is patent and pts heart rate is 120 no hhn given at this time
--- NOTE | 2017-11-17 16:56 | NUR ---
NO CHANGE IN CONDITION AT THIS TIME. VITAL SIGNS STABLE. NO ACUTE DISTRESS NOTED. FLACC 0. PT STILL ON LEVOPHED AND EVONNE-SYNEPHRINE DRIPS. WILL CONTINUE TO MONITOR.
--- NOTE | 2017-11-17 17:01 | NUR ---
VENT CHECK, SXN PT SMALL AMT OF CLEAR SECRETIONS PT IS RESTING
--- NOTE | 2017-11-17 17:23 | NUR ---
11/17/17 RD FOLLOW UP COMPLETED. PLEASE REFER TO NUTRITION ASSESSMENT UNDER CARE ACTIVITY FOR ESTIMATED NUTRITIONAL NEEDS. 1.CONTINUE CURRENT TPN TOLERATED/INDICATED. 2.WHEN MEDICALLY ABLE CONSIDER INITIATING TF WITH NOVASOURCE RENAL GOAL RATE WILL BE 40ML/HR. PROVIDES: 960ML, 1920KCALS, 87G PROTEIN, 688ML FREE WATER. RD TO FOLLOW-UP IN 2-3 DAYS PATIENT IS HIGH RISK. JESSICA LIRA, RD
--- NOTE | 2017-11-17 17:46 | NUR ---
DR. OSULLIVAN CAME IN TO SEE AND EXAMINE PT. WILL FOLLOW UP ON ORDERS.
--- NOTE | 2017-11-17 18:48 | NUR ---
FAMILY AT BEDSIDE. DR. OSULLIVAN SPEAKING WITH FAMILY REGARDING PT'S PROGNOSIS.
--- NOTE | 2017-11-17 19:15 | NUR ---
REPORT GIVEN TO NIGHT NURSE FOR CONTINUITY OF CARE. NO ACUTE DISTRESS AT THIS TIME.
--- NOTE | 2017-11-17 19:20 | NUR ---
RECEIVED REPORT FROM MORNING RN FOR CONTINUITY OF CARE. PT IN STABLE CONDITION AT THIS TIME. VS STABLE. PT AFEBRILE. ABLE TO OPEN EYES WITH SHAKING. ETT TO VENT WITH SETTING: AC20, FIO2 100, TV 450, AND PEEP 5. NO SIGNS OF DISTRESS NOTED. LUNG SOUNDS COARSE. S1+S2 HEARD. PULSES PALPABLE IN EXTREMITIES. SINUS TACHYCARDIA ON MONITOR. PT ON LEVOPHED AND EVONNE-SYNEPHRINE DRIPS. NGT ON RIGHT NARES CONNECTED TO SUCTION. NGT PLACEMENT CHECKED. PT ON TPN RUNNING AT 60ML/HR. ABDOMEN ROUND, SOFT, AND NONDISTENDED. DRESSING DRY AND INTACT. PT HAS LEFT IJ MONIKA CATH AND TASNEEM PICC LINE. LINES PATENT AND ASYMPTOMATIC. WALLIS CATHETER IN PLACE, VERY MINIMAL URINE OUTPUT. URINE YELLOW AND CLEAR. NO SIGNS OF DISTRESS NOTED ON PT. MANDA DRAIN IN PLACE WITH MINIMAL DRAINAGE ON BOTH. CALL LIGHT WITHIN REACH. BED AT LOW POSITION. ALL SAFETY PRECAUTIONS IN PLACE. WILL CONTINUE TO MONITOR PT.
[2017-11-17] MEDS: FAT EMULSION 20% IV SCH ×3 (19:52)
[2017-11-17] MEDS: AMINO ACIDS 8.5% IV SCH ×3 (19:52)
[2017-11-17] MEDS: DEXTROSE 50% IV SCH ×3 (19:52)
[2017-11-17] MEDS: lamoTRIgine 25 MG TAB PO SCH (21:13)
[2017-11-17] MEDS: MICAFUNGIN SODIUM 100 MG in NACL 0.9% 100 ML IV SCH (21:14)
--- NOTE | 2017-11-17 21:30 | NUR ---
SCHEDULED MEDICATIONS ADMINISTERED. PT TOLERATED WELL. NO CHANGE IN CONDITION AT THIS TIME. NO SIGNS OF DISTRESS NOTED. WILL CONTINUE TO MONITOR PT.
--- NOTE | 2017-11-17 23:30 | NUR ---
DECREASED FIO2 TO 70%, PT SAT 100% FOR THE LAST 24 HRS
[2017-11-18] VITALS (101 sets, daily range): BP systolic 62–189; BP diastolic 33–133
--- NOTE | 2017-11-18 01:04 | NUR ---
PT VS STABLE AT THIS TIME. NO CHANGE IN CONDITION. FLACC 0. NO SIGNS OF DISTRESS NOTED. ALL SAFETY PRECAUTIONS ARE IN PLACE. WILL CONTINUE TO MONITOR PT
[2017-11-18] MEDS: PHENYLEPHRINE 40 MG in NACL 0.9% 250 ML IV PRN ×3 (03:05→17:15)
[2017-11-18 05:11] LABS: WHITE BLOOD COUNT (AUTO) 8.7 K/uL (4.8-10.8)
--- NOTE | 2017-11-18 05:52 | NUR ---
DR. DUNAWAY AT BEDSIDE TO SEE PT. WILL FOLLOW-UP WITH ANY NEW ORDERS.
[2017-11-18 06:05] LABS: HEMATOCRIT 24.6 % (36-52); MEAN CORPUSCULAR HEMOGLOBIN 28 pg (27-31); MEAN CORPUSCULAR HGB CONC 33 g/dL (33-37); MEAN CORPUSCULAR VOLUME 87 fL (80-94); RED BLOOD CELL COUNT(AUTO) 2.84 MIL/uL (4.20-6.10); RED CELL DISTRIBUTION WIDTH 21.2 % (11.6-13.7)
[2017-11-18 06:34] LABS: ANION GAP 17.9 (8-16); CARBON DIOXIDE 20.9 mmol/L (21-32); CREATININE 2.1 mg/dL (0.7-1.3); POTASSIUM 3.8 mmol/L (3.5-5.1)
[2017-11-18] MEDS: ALBUTEROL SULFATE/IPRATROPIU 3 ML SOL IH SCH ×4 (06:35→19:01)
[2017-11-18 06:39] LABS: PLATELET COUNT (AUTO) 3 K/uL (140-450)
[2017-11-18] MEDS: BLOOD GLUCOSE MONITORING 1 DEV DEV MC SCH ×2 (06:44→12:49)
[2017-11-18 06:46] LABS: MAGNESIUM 1.5 mg/dL (1.8-2.4); PHOSPHORUS 4.8 mg/dL (2.5-4.9)
--- NOTE | 2017-11-18 06:56 | NUR ---
RECIVED PT ON VENT WITH SETTINGS CHARTED BREATH SOUNDS PRESENT BILAT COARSE SXN PT WITH MIN TO MOD AMT REDDISH SECS AMBU BAG AT BEDSIDE VENT PLUGGED INTO RED OUTLET WILL CONTINUE TO MONITOR PT ON VENT
[2017-11-18 07:06] LABS: LYMPHOCYTES % (MANUAL) 17 % (20-46); MONOCYTES % (MANUAL) 7 % (5-12)
--- NOTE | 2017-11-18 07:10 | NUR ---
REPORT GIVEN TO MORNING RN FOR CONTINUITY OF CARE. PT IN STABLE CONDITION AT THIS TIME.
--- NOTE | 2017-11-18 07:30 | NUR ---
RECEIVED REPORT FROM NIGHT RN. PT IS LETHARGIC AND UNRESPONSIVE. DOES NOT OPEN EYES. PT IS AFEBRILE. SINUS TACHYCARDIA ON MONITOR. S1 + S2 HEARD. ETT TO VENT: AC 20, FIO2 75%, VT 450, PEEP 5. BREADTH SOUNDS COARSE BILATERALLY. NO SOB NOTED. NGT IN PLACE TO RIGHT NARE CONNECTED TO LOW SUCTION. PLACEMENT CONFIRMED. LEFT IJ MONIKA CATH W/ PIG TAIL FOR DIALYSIS IN PLACE, PICC LINE TO LEFT UPPER ARM ASYMPTOMATIC, PATENT AND INTACT. PT IS ON TPN AT 60 ML/HR, LEVOPHED DRIP AT 20 MCG/MIN, EVONNE-SYNEPHRINE DRIP AT 100 MCG/MIN, SANDOSTATIN DRIP AT 10 ML/HR. ABDOMINAL DRESSING CLEAN, DRY AND INTACT, W/ TWO MANDA DRAINS IN PLACE. ABDOMEN SOFT, ROUND AND BOWEL SOUNDS HYPOACTIVE. WALLIS CATH IN PLACE W/ NO URINE NOTED IN DRAINAGE BAG. PENILE EDEMA NOTED. SEVERAL SKIN TEAR, ECCHYMOSIS NOTED TO BUE. SKIN IS MOIST AND COOL. +3 EDEMA TO BUE AND BLE. HOB 30 DEGREES. SAFETY MEASURES ENSURED. WILL CONTINUE TO MONITOR.
--- NOTE | 2017-11-18 07:50 | NUR ---
DR. RICE AND RESIDENT GROUP IN TO SEE PT. WILL FOLLOW UP ON ORDERS.
[2017-11-18] MEDS ORDERED: MAG SULF 2000 MG/WATER PREMIX 50 ML IV SCH (08:19)
[2017-11-18] MEDS: MEROPENEM 500 MG in NACL 0.9% 50 ML IV SCH ×2 (08:56→21:30)
[2017-11-18] MEDS: OCTREOTIDE ACETATE 1.25 MG in NACL 0.9% 250 ML IV SCH (08:56)
[2017-11-18] MEDS: LACTOBACILLUS RHAMNOSUS GG 1 EACH CAP PO SCH (08:59)
[2017-11-18] MEDS: HYDROCORTISONE NA SUCC 100 MG/2 ML VIAL IV SCH ×2 (08:59→20:07)
[2017-11-18] MEDS: FUROSEMIDE 40 MG/4 ML VIAL IVP SCH ×2 (08:59→20:07)
[2017-11-18] MEDS: PANTOPRAZOLE 40 MG INJ VIAL IVP SCH ×2 (08:59→20:07)
[2017-11-18] MEDS: ATORVASTATIN 20 MG TAB PO SCH (08:59)
[2017-11-18] MEDS: HYDROXYCHLOROQUINE 200 MG TAB PO SCH (09:00)
[2017-11-18] MEDS: DOCUSATE 100 MG/10 ML UDC GT SCH ×2 (09:00→20:07)
[2017-11-18] MEDS ORDERED: VANCOMYCIN 1GM/DEXT 5% PREMIX 200 ML IV SCH (09:00)
[2017-11-18] MEDS: ASCORBIC ACID 500 MG TAB PO SCH (09:00)
[2017-11-18] MEDS: CALCIUM ACETATE 667 MG TAB NG SCH ×3 (09:00→17:18)
[2017-11-18] MEDS: NOREPINEPHRINE 16 MG in DEXTROSE 5% 250 ML IV PRN (09:36)
--- NOTE | 2017-11-18 10:10 | NUR ---
PT'S REQUESTS HER COUSIN TO SPEAK WITH DR. DUNAWAY. DR. DUNAWAY AT BEDSIDE AND SPOKE WITH 'S COUSIN REGARDING PT'S PROGNOSIS.
--- NOTE | 2017-11-18 11:15 | NUR ---
WOUND CARE RE-EVALUATION SKIN ASSESSMENT DONE WITH PRIMARY RN, LABS ARE WBC: 8.7, H/H 8.0/24.6, GLUCOSE: 180, ALBUMIN: 1.3. NGT IN PLACE, ET TUBE IN PLACE, WALLIS CATHETER IN PLACE. INTEGUMENTARY: -MULTIPLE ECCHYMOSIS FROM NECK, SHOULDER TO UPPER CHEST , ABDOMINAL AND BILATERAL UPPER AND LOWER EXTREMITIES DUE TO MULTIPLE PROCEDURES AND POSSIBLE DIC. -MULTIPLE SKIN LESIONS WITH CLEAR BODY FLUIDS SEEPING OUT OF SKIN FROM UPPER TRUNK TO BILATERAL UPPER AND LOWER EXTREMITIES. -BLANCHABLE REDNESS TO SACRAL COCCYX AND BILATERAL HEELS, NO PRESSURE INJURY NOTICE AT THIS TIME. -MULTIPLE SKIN TEARS ON UPPER EXTREMITIES WITH LARGEST MEASUREMENTS ON RIGHT FOREARM 3X2cm -MID ABDOMEN SURGICAL WOUND 16X1.5X2cm, WOUND BED IS RED, JJ WOUND REDNESS. SMALL AMOUNT OF SEROSANGUINEOUS DRAINAGE, NO FOUL ODOR. [address] WITH DARK RED OUTPUT. CLEAR YELLOW DRAINAGE CONTINUOUSLY SEEPING OUT OF MANDA DRAIN SURGICAL SITES. SUTURES IN PLACE. DR SERRANO AT BEDSIDE AND NOTIFIED ABOUT THE DRAINAGE FROM THE MANDA TUBING SITE. NO NEW ORDERS GIVEN. RECOMMENDATIONS: -DO NOT APPLY TAPES/ TEGADERM TO SKIN TEARS OR ANY SKIN OPEN AREA -APPLY XEROFORM DRESSING TO NECK, SHOULDER AND UPPER CHEST ECCHYMOSIS AREA TO PREVENT FRICTION FROM MEDICAL TUBINGS -APPLY OPTIFORM TO SACRALCOCCYX PREVENTIVE MEASUREMENT -COVER MULTIPLE SKIN TEARS TO UPPER/LOWER EXTREMITIES WITH VERSATEL DRESSING AND LEAVE SACHIN -OFF LOAD SACRALCOCCYX AND BILATERAL HEELS BY USING PILLOWS TO POSITION AND HEEL RAISERS -NO COMPRESSION DRESSING TO LLE -TURN AND REPOSITION Q2H -KEEP SKIN DRY AND CLEAN AT ALL TIMES -PRESSURE REDISTRIBUTION SURFACE THERAPY COMORBIDITIES, RELATED TO SKIN BREAKDOWN; CRITICAL MEDICAL CONDITION, RENAL DIALYSIS, HOB ELEVATED THE MAJORITY OF THE DAY FOR MEDICAL CONDITION, DECREASE MOBILITY AND FUNCTIONAL ABILITY. RECOMMENDATIONS DISCUSSED WITH PRIMARY RN WILL FOLLOW UP PT Q 7-10 DAYS, PLEASE CONTACT WOUND CARE NURSE IF ANY QUESTIONS OR CHANGE OF SKIN CONDITION. Addendum: 11/18/17 at 1412 by Desmond Miner (Grace) RN PER PRIMARY RN, MID ABD SURGICAL WOUND HAS BEEN DRESSED WITH XEROFORM DRESSING QDAY AND IMPROVING. RECOMMENDATION: CLEAN ABD SURGICAL WOUND WITH NS THEN PAT DRY. PACK WITH XEROFORM DRESSING, COVER WITH ABD DRESSING AND SECUR WITH TAPE.
--- NOTE | 2017-11-18 11:45 | NUR ---
DR. MAURICIO IN TO SEE PT. WILL FOLLOW UP ON ORDERS.
[2017-11-18] MEDS: INSULIN LISPRO SLIDING SCALE 100 UNITS/ML VIAL SUBQ PRN ×2 (12:52→17:55)
--- NOTE | 2017-11-18 13:43 | NUR ---
PT SEEN BY DR. MATA AT BEDSIDE. WILL FOLLOW UP ON ORDERS.
--- NOTE | 2017-11-18 14:22 | NUR ---
CM NOTE CONCURRENT REVIEW FAXED TO [facility] (FAX# [phone], ATTN: IRMA [phone]) AND [facility] (FAX# [phone], ATTN: JULISA #[phone]).
--- NOTE | 2017-11-18 14:22 | NUR ---
SPOKE TO DR CARRILLO AND DISCUSSED ABOUT MID ABD SURGICAL WOUND DRESSING WITH MARILUZ IF OK WITH THE DR. PER ORDERS, CONTINUE XEROFORM DRESSING.
--- NOTE | 2017-11-18 16:00 | NUR ---
NO CHANGE OF CONDITION AT THIS TIME. PT STILL ON LEVOPHED AND EVONNE-SYNEPHRINE DRIPS. VITAL SIGNS STABLE. AFEBRILE. WILL CONTINUE TO MONITOR.
--- NOTE | 2017-11-18 16:20 | NUR ---
PLATELET TRANSFUSION STARTED. WILL MONITOR VITAL SIGNS AND S/SX OF ADVERSE REACTIONS.
--- NOTE | 2017-11-18 17:00 | NUR ---
PT SEEN AND EXAMINED BY DR. MORALES. WILL FOLLOW UP ON ORDERS.
--- NOTE | 2017-11-18 17:22 | NUR ---
CONTINUED TO MONITR PT PT ON VENT WITH SETTINGS CHARTED SXN PT WITH MIN AMT OFF WHITE SECS AMBU BAG AT BEDSIDE VENT PLUGGED INTO RED OUTLET
--- NOTE | 2017-11-18 17:50 | NUR ---
DR. OSULLIVAN AT BEDSIDE TO SEE AND EXAMINE PT. UPDATES GIVEN REGARDING PT. WILL FOLLOW UP ON ORDERS.
--- NOTE | 2017-11-18 18:20 | NUR ---
PLATELET TRANSFUSION COMPLETED. NO ADVERSE REACTION NOTED. VITAL SIGNS STABLE.
--- NOTE | 2017-11-18 19:20 | NUR ---
REPORT RECEIVED FROM MORNING NURSE, DICK PRESLEY. PT CLOSED EYES. NONVERBAL. UNABLE TO FOLLOW COMMANDS. PERRL. ETT TO VENT AC 20, FIO2 60, TV 450, PEEP 5. NGT TO RIGHT CARTER CONNECTED TO INTERMITTENT SUCTION WITH DARK GREEN SUBSTANCE IN THE COLLECTION BOTTLE. LIJ MONIKA CATH WITH PIG TAIL. LEFT UPPER ARM PICC LINE WITH DOUBLE LUMEN . ALL PATENT AND ASYMPTOMATIC. DRESSING NOTED ON THE WHOLE LOWER ABDOMEN. 2 MANDA DRAINAGE NOTED FROM THE LEFT LOWER QUAD WITH ONE WITH BRING RED AND ONE WITH DARK RED/BROWN COLOR LIQUID NOTED. GENERALIZED EDEMA NOTED FROM ALL EXTREMITIES PITTING +3 AND SIPPING FLUID FROM THE SKIN. MULTIPLE DISCOLORATIONS AND SKIN TEARS FROM UPPER EXTREMITIES AND MULTIPLE DISCOLORATION FROM THE UPPER CHEST. BILATERAL LUNGS SOUND RHONCHI AND COURSED. BREATHING NOTED WITH EPISODES OF LABORED BREATHING. ON LEVOPHED DRIP, EVONNE-SYNEPHRINE DRIP. ON TPN. CAP REFILL MORE THAN 3 SECONDS. FLACC 0. ON CONTINUOUS GLASS LOADING EQUIPMENT TENDER WITH ST ON MONITOR. WALLIS CATHETER NOTED WITH NO OUTPUT OF NOW. CALL LIGHT IN REACH. HOB ELEVATED TO 30 DEGREES AND KEPT BED TO THE LOWEST POSITION. WILL CONTINUE TO MONITOR.
--- NOTE | 2017-11-18 19:21 | NUR ---
REPORT GIVEN TO NIGHT RN FOR CONTINUITY OF CARE. VITAL SIGNS STABLE. NO ACUTE DISTRESS AT THIS TIME.
[2017-11-18] MEDS: AMINO ACIDS 8.5% IV SCH ×3 (19:50)
[2017-11-18] MEDS: FAT EMULSION 20% IV SCH ×3 (19:50)
[2017-11-18] MEDS: DEXTROSE 50% IV SCH ×3 (19:50)
[2017-11-18] MEDS: MICAFUNGIN SODIUM 100 MG in NACL 0.9% 100 ML IV SCH (20:08)
[2017-11-18] MEDS: lamoTRIgine 25 MG TAB PO SCH (20:09)
[2017-11-19] VITALS (107 sets, daily range): BP systolic 67–133; BP diastolic 45–108
[2017-11-19] MEDS: NOREPINEPHRINE 16 MG in DEXTROSE 5% 250 ML IV PRN ×2 (00:06→22:07)
[2017-11-19] MEDS: PHENYLEPHRINE 40 MG in NACL 0.9% 250 ML IV PRN ×4 (00:08→22:53)
--- NOTE | 2017-11-19 00:08 | NUR ---
NEOSYNEPHERINE DRIP TITRATED DOWN TO 50MCG/MIN. WILL CONTINUE TO MONITOR.
[2017-11-19] MEDS: NACL 0.9% IRR 250 ML BOTTLE IR SCH ×2 (00:09→13:43)
[2017-11-19] MEDS: INSULIN LISPRO SLIDING SCALE 100 UNITS/ML VIAL SUBQ PRN ×3 (00:39→12:43)
--- NOTE | 2017-11-19 02:00 | NUR ---
ORAL VAP CARE PROVIDED. REPOSITIONED. CONTINUING WITH LEVOPHED, NEOSYNEPHERINE, SANDOSTANTIN DRIPS, AND TPN. NO ACUTE DISTRESS NOTED AT THIS TIME. WILL CONTINUE TO MONITOR.
--- NOTE | 2017-11-19 05:00 | NUR ---
TITRATED NEOSYNEPHERINE TO 100 MCG/MIN DUE TO BP=81/56
--- NOTE | 2017-11-19 05:15 | NUR ---
MORNING CARE, BED BATH, WALLIS CATHETER CARE, ORAL VAP CARE, SHAVING FACIAL HAIR WERE PROVIDED. GENERALIZED PITTING EDEMA +3 WITH FLUID SIPPING EVERYWHERE ESPECIALLY MORE IN THE UPPER EXTREMITIES. VERY FRAGILE AND PRONE TO SKIN TEAR WITH SLIGHT MOVEMENT. WOUND CARE ALSO PROVIDED.
--- NOTE | 2017-11-19 05:30 | NUR ---
TITRATED LEVOPHED DRIP TO 28 MCG/MIN DUE TO BP=86/66. WILL CONTINUE TO MONITOR.
[2017-11-19] MEDS: BLOOD GLUCOSE MONITORING 1 DEV DEV MC SCH ×5 (05:37→23:25)
[2017-11-19 06:21] LABS: MAGNESIUM 1.9 mg/dL (1.8-2.4); PHOSPHORUS 5.3 mg/dL (2.5-4.9)
[2017-11-19] MEDS: ALBUTEROL SULFATE/IPRATROPIU 3 ML SOL IH SCH ×4 (07:10→19:11)
--- NOTE | 2017-11-19 07:18 | NUR ---
RECIVED PT ON VENT WITH SETTINGS CHARTED BREATH SOUNDS PRESENT BILAT COARSE SXN PT SCANT AMT SECS SXN PT ORALLY WITH MOD AMT CANDACE SECS AMBU BAG AT BEDSIDE VENT PLUGGED INTO RED OUTLET WILL CONTINUE TO MONITOR PT ON VENT
--- NOTE | 2017-11-19 07:27 | NUR ---
RECEIVED REPORT FROM NOC SHIFT RN. PT RESTING IN BED. UNRESPONSIVE. PUPILS NON-REACTIVE TO LIGHT. SKIN D MOIST AND WEEPING, WARM TO TOUCH. NG TUBE IN RIGHT NARES ATTACHED TO LOW SUCTION. PT ON ETT TO VENT WITH VENT SETTING AC 20 FIO2 50% TV 450 AND PEEP 5. LEFT IJ DOUBLE LUMEN CATH IN PLACE, NO BLOOD RETURNS. INTACT, SANDOSTATIN RUNNING AT 10 ML/HR. TASNEEM PICC LINE INTACT. LEVOPHED RUNNING AT 28 MCG/MIN, EVONNE SYNEPHRINE RUNNING AT 100 MCG/MIN. TPN RUNNING AT 60 ML/HR. S/P SURGICAL DRESSING IM MID ABDOMEN. DRESSING DRY AND INTACT. MANDA DRAIN INTACT, COLLECTING BLOODY DRAINAGE IN BAG. WALLIS'S CATH IN PLACE. SWOLLEN PENIS. MULTIPLE OPEN SKIN WOUND ALL OVER THE BODY. GENERALIZED EDEMA. CALL LGHT WITHIN REACH, BED IN LOW POSITION. KEPT HOB ELEVATED AND OFFLOADED PRESSURE AREAS. WILL CONTINUE TO MONITOR.
--- NOTE | 2017-11-19 07:27 | NUR ---
BED SIDE REPORT GIVEN TO MORNING NURSE, DICK VÁZQUEZ FOR CONTINUITY OF CARE. CONTINUING WITH LEVOPHED, NEOSYNEPHERINE, SANDOSTATIN DRIPS, AND TPN. PT VS WITHOUT ACUTE DISTRESS. ALL SAFETY PRECAUTIONS ARE IN PLACE.
[2017-11-19 08:09] LABS: ANION GAP 19.9 (8-16); CARBON DIOXIDE 18.2 mmol/L (21-32); POTASSIUM 4.1 mmol/L (3.5-5.1)
[2017-11-19 08:10] LABS: CREATININE 2.4 mg/dL (0.7-1.3)
[2017-11-19] MEDS: CALCIUM ACETATE 667 MG TAB NG SCH ×3 (08:28→16:44)
[2017-11-19] MEDS: MEROPENEM 500 MG in NACL 0.9% 50 ML IV SCH ×2 (08:31→20:09)
[2017-11-19] MEDS: DOCUSATE 100 MG/10 ML UDC GT SCH ×2 (08:32→20:10)
[2017-11-19] MEDS: OCTREOTIDE ACETATE 1.25 MG in NACL 0.9% 250 ML IV SCH (08:32)
[2017-11-19] MEDS: HYDROCORTISONE NA SUCC 100 MG/2 ML VIAL IV SCH ×2 (08:33→20:10)
[2017-11-19] MEDS: LACTOBACILLUS RHAMNOSUS GG 1 EACH CAP PO SCH (08:33)
[2017-11-19] MEDS: PANTOPRAZOLE 40 MG INJ VIAL IVP SCH ×2 (08:33→20:10)
[2017-11-19] MEDS: FERROUS GLUCONATE 324 MG TAB PO SCH (08:33)
[2017-11-19] MEDS: ATORVASTATIN 20 MG TAB PO SCH (08:34)
[2017-11-19] MEDS: ASCORBIC ACID 500 MG TAB PO SCH (08:34)
[2017-11-19] MEDS: HYDROXYCHLOROQUINE 200 MG TAB PO SCH (08:34)
[2017-11-19 08:52] LABS: HEMATOCRIT 24.9 % (36-52); HEMOGLOBIN 8.4 g/dL (12.0-18.0); MEAN CORPUSCULAR HEMOGLOBIN 29 pg (27-31); MEAN CORPUSCULAR HGB CONC 34 g/dL (33-37); MEAN CORPUSCULAR VOLUME 86 fL (80-94); PLATELET COUNT (AUTO) 36 K/uL (140-450); RED CELL DISTRIBUTION WIDTH 21.9 % (11.6-13.7); WHITE BLOOD COUNT (AUTO) 9.3 K/uL (4.8-10.8)
--- NOTE | 2017-11-19 09:28 | NUR ---
PT RESTING IN BED UNRESPONSIVE. ST ON MONITOR. HR 132. RR 14. SPO2 99%. BP 97/45. SEEN BY DR. DUNAWAY. MADE AWARE ABOUT ENLARGED NECK MASS. RT AT BEDSIDE. WILL CONTINUE TO MONITOR.
[2017-11-19 09:45] LABS: LYMPHOCYTES % (MANUAL) 8 % (20-46); MONOCYTES % (MANUAL) 7 % (5-12)
[2017-11-19 09:49] LABS: CORRECTED WHITE BLOOD COUNT 8.1 K/uL (4.5-11.0)
[2017-11-19] MEDS ORDERED: FAT EMULSION 20% IV SCH ×3 (09:49)
[2017-11-19] MEDS ORDERED: DEXTROSE 50% IV SCH ×3 (09:49)
[2017-11-19] MEDS ORDERED: AMINO ACIDS 8.5% IV SCH ×3 (09:49)
--- NOTE | 2017-11-19 09:55 | NUR ---
NEW BAG OF EVONNE-SYPHERINE GUSTAVO. RUNNING AT 37.5 ML/HR (100 MCG/MIN).
--- NOTE | 2017-11-19 12:01 | NUR ---
PT SEEN BY DR. MAURICIO. WILL FOLLOW UP ON ORDER.
--- NOTE | 2017-11-19 13:04 | NUR ---
PT RESTING IN BED. NO RESPIRATORY DISTRESS NOTED. ST ON MONITOR. BP 115/68. RR 24. SPO2 99%. CONTINUE ON DRIP. WILL CONTINUE TO MONITOR.
--- NOTE | 2017-11-19 13:40 | NUR ---
SEEN BY DR. MATA. WANTS TO HOLD DIALYSIS. WILL FOLLOW UP ON ORDER.
--- NOTE | 2017-11-19 13:50 | NUR ---
SEEN BY DR. MORALES. NO NEW ORDER AT THIS TIME. WILL FOLLOW UP ON ORDER.
--- NOTE | 2017-11-19 15:11 | NUR ---
CM NOTE CONCURRENT REVIEW FAXED TO [facility] (FAX# [phone], ATTN: IRMA [phone]) AND [facility] (FAX# [phone], ATTN: JULISA #[phone]).
--- NOTE | 2017-11-19 15:16 | NUR ---
LINH NOTE PER CUCA FROM [facility], UNABLE TO TAKE VENT/HEMODIALYSIS PATIENTS PER KATTY FROM [facility], UNABLE TO TAKE VENT/HEMODIALYSIS PATIENTS Addendum: 11/19/17 at 1523 by Carl Ward RN WRONG PATIENT; DISREGARD NOTE
--- NOTE | 2017-11-19 17:25 | NUR ---
HUNG NEW BAG OF EVONNE-SYNEPHRINE. RUNNING AT 37.5 ML/HR (100 MCG/MIN).
--- NOTE | 2017-11-19 17:31 | NUR ---
CONTINUED TO MONITOR PT ON VENT WITH SETTINGS CHARTED BREATH SOUNDS PRESENT BILAT COARSE SXN PT WITH MIN AMT OFF RUST COLOR SECS VENT PLUGGED INTO RED OUTLET AMBU BAG AT BEDSIDE
--- NOTE | 2017-11-19 19:10 | NUR ---
BP DROPPED DOWN TO 67/58. DR. HUNTER MADE AWARE. WILL BE HERE IN ICU TO SEE PT SOON. PT ON CONTINUOUS MONITORING.
--- NOTE | 2017-11-19 19:20 | NUR ---
RECEIVED PT STABLE ON VENT SUPPORT AT DOCUMENTED SETTINGS, SUCTIONED SCANT WHITE THIN SECRETIONS, HHN TX GIVEN, TOLERATED WELL, NO RESP DISTRESS OR SOB NOTED AT THIS TIME, 7.5 ETT SECURED AT 21 CM AT THE TEETH, ALARMS SET AND AUDIBLE, AMBU BAG AT BEDSIDE, VENT PLUGGED INTO RED OUTLET, WILL CONT TO MONITOR.
--- NOTE | 2017-11-19 19:28 | NUR ---
RECEIVED A REPORT FROM MORNING NURSE, DICK VÁZQUEZ. PT EYE CLOSED, UBTUNDED, NONVERBAL, UNABLE TO FOLLOW COMMANDS. EYES SLUGGISH, PERRL. ETT TO VENT AC 20, FIO2 50, TV 450, PEEP 5. BILATERAL LUNGS SOUND RHONCHI AND DIMINISHED. EVEN CHEST RISE WITH EPISODES OF LABORED BREATHING. O2 SAT 100%. NGT FROM RIGHT CARTER CONNECTED TO LOW INTERMITTENT SUCTION WITH DARK GREEN LIQUID NOTED IN THE COLLECTION BAG. MONIKA CATHETER TO RIJ WITH DOUBLE LUMEN AND ONE LUMEN WITH PIG TAIL, LEFT UPPER ARM PICC LINE WITH DOUBLE LUMEN. ALL PATENT SYMPTOMATIC. ON TPN AND SANDOSTATIN DRIP. ON LEVOPHED AND NEOSYNEPHERINE DRIPS WITH MAX DOSE AT THIS TIME. DR. HUNTER IS IN AND MADE AWARE OF PT'S [address] DEVINE SAID NO THIRD PRESSOR AT THIS TIME. GENERALIZED PITTING EDEMA +4 WITH SIPPING SEROSANGUINEOUS FLUID FROM THE SKIN. PT BODY COLOR YELLOW AND EYES ARE YELLOW. MUTIPLE SKIN TEARS AND DISCOLORATION NOTED ON THE CHEST, NECK, AND ABD, BACK, UPPER & LOWER EXTREMITIES. VERY FRAGILE SKIN NOTED. CAP REFILL DELAYED MORE THAN 3 SEC. WALLIS CATHETER WITH NO OUTPUT AT THIS TIME. SURGICAL WOUND ON THE RIGHT ABD AND 2 MANDA DRAINAGE ON THE LEFT ABD. MANDA 1 HAS NO OUTPUT AT THIS TIME AND MANDA 2 HAS MAROON COLOR DRAINAGE NOTED. VS WITHOUT ACUTE DISTRESS AT THIS TIME. FLACC 0. AFEBRILE. 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 CALL LIGHT IN REACH AND HOB ELEVATED 30 DEGREES AND KEPT TO THE LOWEST. PRESSURE AREA OFF LOADED WITH PILLOWS. WILL CONTINUE TO MONITOR.
--- NOTE | 2017-11-19 19:30 | NUR ---
ENDORSED TO NOC SHIFT RN FOR CONTINUITY OF CARE. PT ON STABLE CONDITION.
[2017-11-19] MEDS: lamoTRIgine 25 MG TAB PO SCH (20:11)
--- NOTE | 2017-11-19 20:36 | NUR ---
SCHEDULED MEDS ADMINISTERED. TOLERATED WELL.
[2017-11-19] MEDS: MICAFUNGIN SODIUM 100 MG in NACL 0.9% 100 ML IV SCH (21:17)
--- NOTE | 2017-11-19 21:40 | NUR ---
DR. OSULLIVAN IN TO SEE THE PT. UPDATED PT'S CONDITION AND THE MAX DOSAGE FOR LEVOPHED AND NEOSYNEPHERINE DRIPS.
--- NOTE | 2017-11-19 22:44 | NUR ---
AND THE FAMILY AT BED SIDE AT THIS TIME.
--- NOTE | 2017-11-19 22:58 | NUR ---
WOULD LIKE TO SPEAK TO DR. OSULLIVAN. DR. OSULLIVAN MADE IT AWARE.
--- NOTE | 2017-11-19 23:02 | NUR ---
DR. OSULLIVAN AT BED SIDE SPEAKING TO AND FAMILY AT THIS TIME.
--- NOTE | 2017-11-19 23:15 | NUR ---
AND FAMILY DECIDED TO CHANGE TO DNR WITH PALLIATIVE CARE. CODE STATUS FORM/ COMFORT CARE/ PALLIATIVE CARE FORM SIGNED BY DR. OSULLIVAN, THIS RN, AND THE .
[2017-11-19] MEDS ORDERED: SCOPOLAMINE 1.5 MG/72 HR PATCH TD PRN (23:25)
--- NOTE | 2017-11-19 23:30 | NUR ---
AND FAMILY STATED THAT THEY WILL GO HOME NOW AND TO INFORM THEM VIA TELEPHONE WITH ANY CHANGES AFTER TERMINAL WEANING AND OFF PRESSORS.
[2017-11-20] VITALS: BP 109/60
[2017-11-20 00:15] VITALS: BP 106/62
[2017-11-20] MEDS ORDERED: MORPHINE SULFATE 100 MG in NACL 0.9% 90 ML IV SCH ×2 (00:15→01:20)
[2017-11-20 00:30] VITALS: BP 90/56
[2017-11-20] MEDS ORDERED: MORPHINE SULFATE 2 MG/ML SYR IVP SCH (00:45)
--- NOTE | 2017-11-20 00:45 | NUR ---
MORPHINE DRIP STARTED ORDERED AT THIS TIME.
--- NOTE | 2017-11-20 00:51 | NUR ---
DR. MEDEL AT BED SIDE AND ORDERED 2MG MORPHINE IV PUSH LOADING DOSE. ADMINISTERED ORDERED. NGT REMOVED ORDERED.
--- NOTE | 2017-11-20 00:55 | NUR ---
DR. MEDEL AT BED SIDE WITH RT AND THIS RN. DR. OSULLIVAN ORDERED TO EXTUBATE AND D/C ALL DRIPS EXCEPT MORPHINE DRIP. CARRIED OUT. PT PLACED ON 3L O2 VIA NC. LABORED BREATHING. MI=672, R=13. O2 SAT=UNABLE TO READ. BP=UNABLE TO READ.
--- NOTE | 2017-11-20 00:55 | NUR ---
PALLIATIVE EXTUBATION DONE PER FAMILY REQUEST, AND PLACED ON NASAL CANNULA 3LPM
[2017-11-20 01:00] VITALS: BP 64/51
--- NOTE | 2017-11-20 01:01 | NUR ---
BP=64/51. JJ=817. O2 SAT=96%. R=10. LABORED BREATHING.
--- NOTE | 2017-11-20 01:06 | NUR ---
BP AND O2 SAT=UNABLE TO READ. ZR=653. R=8. LABORED BREATHING. INCREASED MORPHINE DRIP TO 7MG/HR FOR COMFORT. DR. OSULLIVAN AT BED SIDE.
--- NOTE | 2017-11-20 01:34 | NUR ---
REPORTED [facility] ABOUT PT'S TERMINAL WEANING.
--- NOTE | 2017-11-20 01:45 | NUR ---
AGONAL BREATHING NOTED AND HR WENT DOWN FAST. ASYSTOLE ON MONITOR. NO CHEST MOVEMENT. UNABLE TO PALPATE AND AUSCULTATE PULSE. DR. OSULLIVAN AT BED SIDE AND ANNOUNCED TIME OF @0145.
--- NOTE | 2017-11-20 01:52 | NUR ---
DR. OSULLIVAN CALLED THE FAMILY AND INFORMED THE OF THE PT. ALSO ASKED ABOUT THE MORTUARY OF CHOICE AND THEY WILL CALL US BACK.
--- NOTE | 2017-11-20 02:07 | NUR ---
CHARLY FROM [facility] WAS NOTIFIED THE . [facility] WOULD NOT TAKE THE PT AND CALL [employer]NA[employer] TO RELEASE THE BODY. Addendum: 11/20/17 at 0323 by Lise Gutierrez RN CASE# [id number]
--- NOTE | 2017-11-20 02:15 | NUR ---
DR. OSULLIVAN STATED THAT DR. RICE WILL SIGN THE CERTIFICATION INSTEAD OF DR. SILVA, THE PRIMARY MD.
--- NOTE | 2017-11-20 02:20 | NUR ---
AND FAMILY AT BED SIDE AT THIS TIME AND PROVIDED MORTUARY INFO- [facility] . FAMILY REFUSED AUTOPSY. EXPLAINED FAMILY OF AWAITING FOR LOAD PLANNER'S OFFICE TO RELEASE THE BODY TO THE MORTUARY OF CHOICE. PT'S MEDICAL DEVICES WILL NOT BE REMOVED AT THIS TIME UNTIL OK TO RELEASE FROM THE LOAD PLANNER'S.
--- NOTE | 2017-11-20 02:35 | NUR ---
SPOKE TO EVAN FROM [employer] OFFICE WAS NOTIFIED OF PT'S . WAS TOLD THAT THE [employer] DEPUTY WILL CALL BACK.
--- NOTE | 2017-11-20 03:08 | NUR ---
SHANIQUA DE LA CRUZ FROM [employer] CALLED AND REQUESTED INFO PROVIDED. OK TO RELEASE THE BODY TO THE MORTUARY OF FAMILY'S CHOICE. CASE# [id number].
--- NOTE | 2017-11-20 03:20 | NUR ---
JUAN C WAS NOTIFIED THAT THE BODY IS OK TO BE RELEASED FROM [facility] OFFICE. Addendum: 11/20/17 at 0322 by Lise Gutierrez RN PHONE NUMBER OF JUAN C ADAMS
--- NOTE | 2017-11-20 03:45 | NUR ---
POST CARE PROVIDED. BODY WRAPPED IN THE BODY BAG. BODY TAG ATTACHED TO THE TOE AND THE OUTSIDE OF THE BODY BAG. DRAPED WITH LINEN AND CURTAIN KEPT CLOSED. AWAITING FOR MORTUARY. Addendum: 11/29/17 at 0725 by Lise Gutierrez RN ADDENDUM TO PREVIOUS CHARTING. POST MORTEM CARE PROVIDED, NOT POST CARE. PROVIDER MIS-WORDED.
--- NOTE | 2017-11-20 04:30 | NUR ---
[facility] CAME AND PICKED UP THE BODY.
--- NOTE | 2017-11-20 05:18 | NUR ---
PER LANA, REQUEST, ATTEMPTED TO PHONE TO NOTIFY MORTUARY DISTILLATION OPERATOR BUT NOT ANSWERING. OK'D TO PHONE KRIS, 'S COUSIN EARLIER. KRIS WAS CALLED AND MADE AWARE OF THE PT BODY PICKED UP BY THE MORTUARY OF CHOICE. KRIS WILL INFORM THE .
--- NOTE | 2017-11-20 07:45 | NUR ---
DISCHARGE SUMMARY, NOTE FAXED TO [facility]
== END 2017-11-20 01:45 | disposition expired | DRG 950 ==
LOC: MED 12:00 → MTU 15:15 → MIC 11-04 23:05
PROVIDERS: ADMIT Student in an Organized Health Care Education/Training Program; ATTEND Student in an Organized Health Care Education/Training Program
PROC: 0BP1XDZ Removal of Intraluminal Device from Trachea, External Approach (ICD-10-PCS; 2017-10-25)
PROC: 30233N1 Transfusion of Nonautologous Red Blood Cells into Peripheral Vein, Percutaneous Approach (ICD-10-PCS; 2017-11-02)
PROC: 30233N1 Transfusion of Nonautologous Red Blood Cells into Peripheral Vein, Percutaneous Approach (ICD-10-PCS; 2017-11-03)
PROC: 5A1955Z Respiratory Ventilation, Greater than 96 Consecutive Hours (ICD-10-PCS; 2017-11-05)
PROC: 30233L1 Transfusion of Nonautologous Fresh Plasma into Peripheral Vein, Percutaneous Approach (ICD-10-PCS; 2017-11-05)
PROC: 30233K1 Transfusion of Nonautologous Frozen Plasma into Peripheral Vein, Percutaneous Approach (ICD-10-PCS; 2017-11-05)
PROC: 30233N1 Transfusion of Nonautologous Red Blood Cells into Peripheral Vein, Percutaneous Approach (ICD-10-PCS; 2017-11-05)
PROC: 06HN33Z Insertion of Infusion Device into Left Femoral Vein, Percutaneous Approach (ICD-10-PCS; 2017-11-05)
PROC: B54CZZA Ultrasonography of Left Lower Extremity Veins, Guidance (ICD-10-PCS; 2017-11-05)
PROC: 0BH17EZ Insertion of Endotracheal Airway into Trachea, Via Natural or Artificial Opening (ICD-10-PCS; principal; 2017-11-05 10:15)
PROC: 30233N1 Transfusion of Nonautologous Red Blood Cells into Peripheral Vein, Percutaneous Approach (ICD-10-PCS; 2017-11-06)
PROC: 02HV33Z Insertion of Infusion Device into Superior Vena Cava, Percutaneous Approach (ICD-10-PCS; 2017-11-06)
PROC: B548ZZA Ultrasonography of Superior Vena Cava, Guidance (ICD-10-PCS; 2017-11-06)
PROC: 5A1D70Z Performance of Urinary Filtration, Intermittent, Less than 6 Hours Per Day (ICD-10-PCS; 2017-11-06)
PROC: 30233R1 Transfusion of Nonautologous Platelets into Peripheral Vein, Percutaneous Approach (ICD-10-PCS; 2017-11-06)
PROC: 0D9W00Z Drainage of Peritoneum with Drainage Device, Open Approach (ICD-10-PCS; 2017-11-07)
PROC: 30233N1 Transfusion of Nonautologous Red Blood Cells into Peripheral Vein, Percutaneous Approach (ICD-10-PCS; 2017-11-07)
PROC: 0DU907Z Supplement Duodenum with Autologous Tissue Substitute, Open Approach (ICD-10-PCS; 2017-11-07)
PROC: 02PYX3Z Removal of Infusion Device from Great Vessel, External Approach (ICD-10-PCS; 2017-11-07)
PROC: 02HV33Z Insertion of Infusion Device into Superior Vena Cava, Percutaneous Approach (ICD-10-PCS; 2017-11-07)
PROC: 5A1D70Z Performance of Urinary Filtration, Intermittent, Less than 6 Hours Per Day (ICD-10-PCS; 2017-11-07)
PROC: 0D160ZA Bypass Stomach to Jejunum, Open Approach (ICD-10-PCS; 2017-11-07)
PROC: 30233L1 Transfusion of Nonautologous Fresh Plasma into Peripheral Vein, Percutaneous Approach (ICD-10-PCS; 2017-11-08)
PROC: 30233K1 Transfusion of Nonautologous Frozen Plasma into Peripheral Vein, Percutaneous Approach (ICD-10-PCS; 2017-11-08)
PROC: 30233N1 Transfusion of Nonautologous Red Blood Cells into Peripheral Vein, Percutaneous Approach (ICD-10-PCS; 2017-11-08)
PROC: 30233N1 Transfusion of Nonautologous Red Blood Cells into Peripheral Vein, Percutaneous Approach (ICD-10-PCS; 2017-11-08)
PROC: 5A1D70Z Performance of Urinary Filtration, Intermittent, Less than 6 Hours Per Day (ICD-10-PCS; 2017-11-08)
PROC: 30233N1 Transfusion of Nonautologous Red Blood Cells into Peripheral Vein, Percutaneous Approach (ICD-10-PCS; 2017-11-09)
PROC: 5A1D70Z Performance of Urinary Filtration, Intermittent, Less than 6 Hours Per Day (ICD-10-PCS; 2017-11-09)
PROC: 30233R1 Transfusion of Nonautologous Platelets into Peripheral Vein, Percutaneous Approach (ICD-10-PCS; 2017-11-09)
PROC: 30233R1 Transfusion of Nonautologous Platelets into Peripheral Vein, Percutaneous Approach (ICD-10-PCS; 2017-11-10)
PROC: 5A1D70Z Performance of Urinary Filtration, Intermittent, Less than 6 Hours Per Day (ICD-10-PCS; 2017-11-11)
PROC: 30233R1 Transfusion of Nonautologous Platelets into Peripheral Vein, Percutaneous Approach (ICD-10-PCS; 2017-11-11)
PROC: 30233R1 Transfusion of Nonautologous Platelets into Peripheral Vein, Percutaneous Approach (ICD-10-PCS; 2017-11-12)
PROC: 5A1D70Z Performance of Urinary Filtration, Intermittent, Less than 6 Hours Per Day (ICD-10-PCS; 2017-11-13)
PROC: 30233R1 Transfusion of Nonautologous Platelets into Peripheral Vein, Percutaneous Approach (ICD-10-PCS; 2017-11-14)
PROC: 5A1D70Z Performance of Urinary Filtration, Intermittent, Less than 6 Hours Per Day (ICD-10-PCS; 2017-11-15)
PROC: 0BW Respiratory System, Revision (ICD-10-PCS; 2017-11-16)
PROC: 30233R1 Transfusion of Nonautologous Platelets into Peripheral Vein, Percutaneous Approach (ICD-10-PCS; 2017-11-16)
PROC: 5A1D70Z Performance of Urinary Filtration, Intermittent, Less than 6 Hours Per Day (ICD-10-PCS; 2017-11-17)
DX: T82.7XXA Infection and inflammatory reaction due to other cardiac and vascular devices, implants and grafts, initial encounter (principal); D65 Disseminated intravascular coagulation [defibrination syndrome]; I63.9 Cerebral infarction, unspecified; J96.21 Acute and chronic respiratory failure with hypoxia; N17.0 Acute kidney failure with tubular necrosis; G93.41 Metabolic encephalopathy; J69.0 Pneumonitis due to inhalation of food and vomit; K65.3 Choleperitonitis; I46.9 Cardiac arrest, cause unspecified; B37.7 Candidal sepsis; M31.7 Microscopic polyangiitis; R65.21 Severe sepsis with septic shock; K26.5 Chronic or unspecified duodenal ulcer with perforation; K83.0 Cholangitis; K66.8 Other specified disorders of peritoneum; D89.9 Disorder involving the immune mechanism, unspecified; E87.1 Hypo-osmolality and hyponatremia; E83.39 Other disorders of phosphorus metabolism; E86.0 Dehydration; E43 Unspecified severe protein-calorie malnutrition; E87.0 Hyperosmolality and hypernatremia; D63.8 Anemia in other chronic diseases classified elsewhere; F11.23 Opioid dependence with withdrawal; F39 Unspecified mood [affective] disorder; F41.0 Panic disorder [episodic paroxysmal anxiety]; G40.909 Epilepsy, unspecified, not intractable, without status epilepticus; I12.9 Hypertensive chronic kidney disease with stage 1 through stage 4 chronic kidney disease, or unspecified chronic kidney disease; I70.209 Unspecified atherosclerosis of native arteries of extremities, unspecified extremity; J44.9 Chronic obstructive pulmonary disease, unspecified; F12.90 Cannabis use, unspecified, uncomplicated; F32.9 Major depressive disorder, single episode, unspecified; F41.9 Anxiety disorder, unspecified; G31.84 Mild cognitive impairment of uncertain or unknown etiology; Y84.8 Other medical procedures as the cause of abnormal reaction of the patient, or of later complication, without mention of misadventure at the time of the procedure; Z66 Do not resuscitate; B49 Unspecified mycosis; G89.29 Other chronic pain; R91.1 Solitary pulmonary nodule; N18.9 Chronic kidney disease, unspecified; S30.1XXA Contusion of abdominal wall, initial encounter; Z68.30 Body mass index [BMI] 30.0-30.9, adult; Y93.89 Activity, other specified; Y92.89 Other specified places as the place of occurrence of the external cause; Y99.8 Other external cause status; Z86.73 Personal history of transient ischemic attack (TIA), and cerebral infarction without residual deficits; Z87.01 Personal history of pneumonia (recurrent); Z87.11 Personal history of peptic ulcer disease; Z87.891 Personal history of nicotine dependence; Z99.2 Dependence on renal dialysis
CPT/HCPCS: 31500; 36415; 36600; 70450; 71045; 71250; 71270; 74018; 74250; 76536; 76700; 76856; 76881; 80048; 80053; 80202; 80305; 81001; 81003; 82040; 82140; 82150; 82272; 82607; 82728; 82746; 82803; 82948; 83036; 83540; 83605; 83690; 83735; 83880; 84100; 84439; 84443; 84484; 85018; 85025; 85045; 85379; 85384; 85610; 85651; 85730; 86704; 86706; 86708; 86709; 86803; 86886; 86900; 86901; 86920; 87040; 87070; 87075; 87081; 87086; 87205; 87340; 88304; 90935; 92610; 93005; 93925; 94002; 94003; 94640; 97110; 97140; 97530; 99285; C1751; C1758; C9113; J0610; J1170; J1265; J1450; J1642; J1644; J1720; J1815; J1885; J1940; J1956; J2001; J2060; J2185; J2248; J2250; J2270; J2354; J2370; J2405; J2916; J3010; J3370; J3475; J3480; J3490; J7030; J7042; J7060; J7512; J7517; J7620; P9016; P9017; P9035; P9046; Q0092; Q0163; Q9967